=== PATIENT | female | born 1935 | race Caucasian/White ===

== ENCOUNTER → 2018-02-22 10:21 | Outpatient (CLI) | payer MEDICARE, BC, SELFPAY ==
[2018-02-22 12:15] LABS: Absolute Lymphocyte Count 1.41 X10^3/ul (0.83-4.51); Absolute Neutrophil Count 3.3 X10^3/uL (2.0-7.7); Basophil# 0.06 X10^3/uL; Eosinophil# 0.12 X10^3/uL; Eosinophils% 2.1 % (0-5); Hematocrit 46.4 % (37-47); Hemoglobin 15.7 g/dl (12.0-15.0); Lymphocyte # 1.41 X10^3/ul (4.0); Lymphocyte % 24.6 % (19-41); Mean Corp Hgb Conc 33.8 g/gl (32-36); Mean Corpuscular Hgb 34.4 pg (27.0-32.0); Mean Corpuscular Volume 101.5 fL (81-99); Mean Platelet Vol. 11.2 fl (6.2-12.0); Monocyte# 0.89 X10^3/uL; Monocyte% 15.5 % (0-10); Neutrophil # 3.26 X10^3/uL (2.7-7.7); Neutrophil % 56.8 % (47-70); Platelet Count 219 K/mm3 (150-450); RBC Distribution Width CV 13.3 % (11.6-14.6); RBC Distribution Width SD 48.8 fl (35.1-43.9); Red Blood Count 4.57 M/mm3 (4.2-5.4); White Blood Count 5.7 K/mm3 (4.4-11.0)
[2018-02-22 12:25] LABS: AST(SGOT) 46 U/L (15-37); Alanine Aminotransfer ALT/SGPT 64 U/L (13-56); Albumin, Serum 3.9 g/dL (3.2-5.0); Alkaline Phosphatase 52 U/L (45-117); Anion Gap 7 (5-15); BUN 16 mg/dL (7-18); BUN/Creat Ratio 15.8 RATIO (10-20); Calcium,Total 8.8 mg/dL (8.5-10.1); Chloride 104 mmol/L (98-107); Creatinine, Serum 1.01 mg/dL (0.55-1.02); EST Glomerular Filtration Rate 56 mL/min (>60); Est Glom Filt Rate - Afr Amer 68 mL/min (>60); Globulin 3.8 g/dL (2.2-4.2); Glucose 83 mg/dL (74-106); Protein, Total 7.7 g/dL (6.4-8.2); Sodium Level 138 mmol/L (136-145)
[2018-02-22 12:28] LABS: POSITIVE COUNT NO; POSITIVE DIFFERENTIAL NO; POSITIVE MORPHOLOGY NO
== END ==
PROVIDERS: Family Provider Family Medicine; PCP Family Medicine; Visit Provider Internal Medicine Rheumatology
DX: M06.4 Inflammatory polyarthropathy (principal); Z79.899 Other long term (current) drug therapy; M15.9 Polyosteoarthritis, unspecified; K21.0 Gastro-esophageal reflux disease with esophagitis; M89.9 Disorder of bone, unspecified; F32.9 Major depressive disorder, single episode, unspecified; E03.9 Hypothyroidism, unspecified; I10 Essential (primary) hypertension; E78.5 Hyperlipidemia, unspecified
CPT/HCPCS: 36415; 80053; 85025

== ENCOUNTER → 2018-03-03 07:38 | Outpatient (CLI) | payer MEDICARE, BC, SELFPAY ==
--- NOTE | 2018-03-03 07:42 | US_ITS ---
STUDY: ABDOMINAL ULTRASOUND - RIGHT UPPER QUADRANT REASON FOR VISIT: Female, 82 years old. Elevated liver enzymes. TECHNIQUE: Ultrasound evaluation of the right upper quadrant was performed with real-time and static gilmore-scale imaging. TECHNICAL QUALITY: Adequate. COMPARISON: None. FINDINGS: Liver: The liver measures 15.4 cm. There is increased echogenicity consistent with fatty infiltration. The bile ducts are within normal limits. There is hepatic color flow. The direction of portal flow is hepatopetal. There is no demonstrated mass lesion. Gallbladder: The patient is status post cholecystectomy. Common Bile Duct (C.B.D.): The common bile duct measures 4.5 mm. Pancreas: Normal size of the head, body and tail of the pancreas. There is normal echogenicity of the pancreas. There is no demonstrated pancreatic mass or cyst. Right Kidney: Normal size of the right kidney. The right kidney measures 9.9 cm x 3.7 cm x 4.2 cm. Normal renal cortex. The right cortex measures 1.2 cm. There is no demonstrated renal mass or cyst. There is no right hydronephrosis. US/Liver IMPRESSION: Mild degree of fatty infiltration of the liver. Electronically Signed: Viktor Pelletier MD at 15:51 EDT Tel [phone], Service support ,
== END ==
PROVIDERS: Family Provider Family Medicine; PCP Family Medicine; Visit Provider Internal Medicine Rheumatology
DX: R94.5 Abnormal results of liver function studies (principal)
CPT/HCPCS: 76705

== ENCOUNTER → 2018-03-22 09:54 | Outpatient (CLI) | payer MEDICARE, BC, SELFPAY ==
[2018-03-22 12:14] LABS: Absolute Lymphocyte Count 2.03 X10^3/ul (0.83-4.51); Absolute Neutrophil Count 5.6 X10^3/uL (2.0-7.7); Basophil# 0.03 X10^3/uL; Basophil% 0.3 % (0-1); Eosinophil# 0.32 X10^3/uL; Eosinophils% 3.4 % (0-5); Hematocrit 47.6 % (37-47); Lymphocyte # 2.03 X10^3/ul (4.0); Lymphocyte % 21.8 % (19-41); Mean Corp Hgb Conc 33.6 g/gl (32-36); Mean Corpuscular Volume 101.3 fL (81-99); Mean Platelet Vol. 11.1 fl (6.2-12.0); Monocyte% 13.9 % (0-10); Neutrophil # 5.63 X10^3/uL (2.7-7.7); Neutrophil % 60.4 % (47-70); Platelet Count 273 K/mm3 (150-450); RBC Distribution Width CV 12.4 % (11.6-14.6); White Blood Count 9.3 K/mm3 (4.4-11.0)
[2018-03-22 12:24] LABS: POSITIVE COUNT NO; POSITIVE DIFFERENTIAL NO; POSITIVE MORPHOLOGY NO
[2018-03-22 12:49] LABS: ALB/GLOB Ratio 0.9 RATIO (0.9-2.4); AST(SGOT) 32 U/L (15-37); Alanine Aminotransfer ALT/SGPT 44 U/L (13-56); Albumin, Serum 3.7 g/dL (3.2-5.0); Alkaline Phosphatase 49 U/L (45-117); Anion Gap 14 (5-15); BUN 22 mg/dL (7-18); BUN/Creat Ratio 21.6 RATIO (10-20); Calcium,Total 8.8 mg/dL (8.5-10.1); Chloride 103 mmol/L (98-107); Creatinine, Serum 1.02 mg/dL (0.55-1.02); EST Glomerular Filtration Rate 55 mL/min (>60); Est Glom Filt Rate - Afr Amer 67 mL/min (>60); Glucose 113 mg/dL (74-106); Potassium 3.9 mmol/L (3.5-5.1); Protein, Total 7.7 g/dL (6.4-8.2); Sodium Level 139 mmol/L (136-145)
== END ==
PROVIDERS: Family Provider Family Medicine; PCP Family Medicine; Visit Provider Internal Medicine Rheumatology
DX: M06.4 Inflammatory polyarthropathy (principal); M19.049 Primary osteoarthritis, unspecified hand
CPT/HCPCS: 36415; 80053; 85025

== ENCOUNTER → 2018-05-17 10:49 | Outpatient (CLI) | payer MEDICARE, BC, SELFPAY ==
[2018-05-17 12:24] LABS: Absolute Lymphocyte Count 1.52 X10^3/ul (0.83-4.51); Absolute Neutrophil Count 3.6 X10^3/uL (2.0-7.7); Basophil# 0.06 X10^3/uL; Basophil% 0.9 % (0-1); Eosinophils% 3.1 % (0-5); Hematocrit 46.5 % (37-47); Hemoglobin 15.3 g/dl (12.0-15.0); Lymphocyte # 1.52 X10^3/ul (4.0); Lymphocyte % 23.9 % (19-41); Mean Corp Hgb Conc 32.9 g/gl (32-36); Mean Corpuscular Hgb 33.3 pg (27.0-32.0); Mean Corpuscular Volume 101.1 fL (81-99); Mean Platelet Vol. 11.3 fl (6.2-12.0); Monocyte# 0.96 X10^3/uL; Monocyte% 15.1 % (0-10); Neutrophil # 3.61 X10^3/uL (2.7-7.7); Neutrophil % 56.8 % (47-70); Platelet Count 222 K/mm3 (150-450); RBC Distribution Width CV 12.8 % (11.6-14.6); RBC Distribution Width SD 46.4 fl (35.1-43.9); White Blood Count 6.4 K/mm3 (4.4-11.0)
[2018-05-17 12:26] LABS: POSITIVE COUNT NO; POSITIVE DIFFERENTIAL NO; POSITIVE MORPHOLOGY NO
[2018-05-17 12:44] LABS: AST(SGOT) 32 U/L (15-37); Alanine Aminotransfer ALT/SGPT 45 U/L (13-56); Albumin, Serum 3.6 g/dL (3.2-5.0); Alkaline Phosphatase 51 U/L (45-117); Anion Gap 9 (5-15); BUN 16 mg/dL (7-18); Calcium,Total 8.9 mg/dL (8.5-10.1); Chloride 106 mmol/L (98-107); Creatinine, Serum 0.89 mg/dL (0.55-1.02); EST Glomerular Filtration Rate 65 mL/min (>60); Est Glom Filt Rate - Afr Amer 78 mL/min (>60); Globulin 3.7 g/dL (2.2-4.2); Glucose 95 mg/dL (74-106); Potassium 3.9 mmol/L (3.5-5.1); Protein, Total 7.3 g/dL (6.4-8.2); Sodium Level 142 mmol/L (136-145)
== END ==
PROVIDERS: Family Provider Family Medicine; PCP Family Medicine; Visit Provider Internal Medicine Rheumatology
DX: M06.4 Inflammatory polyarthropathy (principal); Z79.899 Other long term (current) drug therapy; M15.9 Polyosteoarthritis, unspecified; K21.0 Gastro-esophageal reflux disease with esophagitis; K76.0 Fatty (change of) liver, not elsewhere classified; M89.9 Disorder of bone, unspecified; F32.89 Other specified depressive episodes; E03.9 Hypothyroidism, unspecified; I10 Essential (primary) hypertension; E78.5 Hyperlipidemia, unspecified
CPT/HCPCS: 36415; 80053; 85025

== ENCOUNTER → 2019-02-22 15:46 | Outpatient (CLI) | payer MEDICARE, BC, SELFPAY | PROVIDERS: Family Provider Family Medicine; PCP Family Medicine; Referring Provider Otolaryngology Otolaryngology/Facial Plastic Surgery; Visit Provider Otolaryngology Otolaryngology/Facial Plastic Surgery | DX: J02.9 Acute pharyngitis, unspecified (principal) | CPT/HCPCS: 87070 ==

== ENCOUNTER → 2019-05-18 11:14 | Outpatient (CLI) | payer MEDICARE, BC, SELFPAY ==
[2019-05-18 14:14] LABS: Absolute Lymphocyte Count 1.65 X10^3/uL (0.83-4.51); Absolute Neutrophil Count 3.9 X10^3/uL (2.0-7.7); Basophil% 1.5 % (0-1); Eosinophil# 0.14 X10^3/uL; Eosinophils% 2.1 % (0-5); Hemoglobin 15.5 g/dL (12.0-15.0); Lymphocyte # 1.65 X10^3/ul (4.0); Lymphocyte % 24.2 % (19-41); Mean Corp Hgb Conc 33.7 g/dL (32-36); Mean Corpuscular Hgb 33.6 pg (27.0-32.0); Mean Corpuscular Volume 99.8 fL (81-99); Mean Platelet Vol. 10.7 fl (6.2-12.0); Monocyte# 1.05 X10^3/uL; Monocyte% 15.4 % (0-10); NRBC Flagged by Analyzer 0 % (0-5); Neutrophil # 3.86 X10^3/uL (2.7-7.7); Neutrophil % 56.7 % (47-70); Platelet Count 262 K/mm3 (150-450); RBC Distribution Width CV 12.5 % (11.6-14.6); RBC Distribution Width SD 45.7 fl (35.1-43.9); Red Blood Count 4.61 M/mm3 (4.2-5.4); White Blood Count 6.8 K/mm3 (4.4-11.0)
[2019-05-18 14:26] LABS: ALB/GLOB Ratio 1.1 RATIO (0.9-2.4); AST(SGOT) 27 U/L (15-37); Alanine Aminotransfer ALT/SGPT 45 U/L (13-56); Albumin, Serum 3.9 g/dL (3.2-5.0); Alkaline Phosphatase 62 U/L (45-117); Anion Gap 10 (5-15); BUN 15 mg/dL (7-18); BUN/Creat Ratio 17.5 RATIO (10-20); Calcium,Total 9.2 mg/dL (8.5-10.1); Chloride 103 mmol/L (98-107); Creatinine, Serum 0.86 mg/dL (0.55-1.02); EST Glomerular Filtration Rate 68 mL/min (>60); Est Glom Filt Rate - Afr Amer 82 mL/min (>60); Globulin 3.6 g/dL (2.2-4.2); Glucose 78 mg/dL (74-106); Potassium 3.8 mmol/L (3.5-5.1); Protein, Total 7.5 g/dL (6.4-8.2); Sodium Level 138 mmol/L (136-145)
== END ==
PROVIDERS: Family Provider Family Medicine; PCP Family Medicine; Referring Provider Internal Medicine Rheumatology; Visit Provider Internal Medicine Rheumatology
DX: M06.4 Inflammatory polyarthropathy (principal); Z79.899 Other long term (current) drug therapy; M15.9 Polyosteoarthritis, unspecified; K21.0 Gastro-esophageal reflux disease with esophagitis
CPT/HCPCS: 36415; 80053; 85025

== ENCOUNTER → 2020-03-26 14:30 | Outpatient (CLI) | payer MEDICARE, BC, SELFPAY ==
[2020-03-26 17:51] LABS: Absolute Neutrophil Count 4.2 X10^3/uL (2.0-7.7); Basophil# 0.07 X10^3/uL; Basophil% 0.9 % (0-1); Eosinophil# 0.21 X10^3/uL; Eosinophils% 2.7 % (0-5); Hematocrit 47.1 % (37-47); Hemoglobin 15.3 g/dL (12.0-15.0); Lymphocyte % 28.6 % (19-41); Mean Corp Hgb Conc 32.5 g/dL (32-36); Mean Corpuscular Hgb 32.8 pg (27.0-32.0); Mean Corpuscular Volume 101.1 fL (81-99); Mean Platelet Vol. 12.3 fl (6.2-12.0); Monocyte# 0.98 X10^3/uL; Monocyte% 12.7 % (0-10); NRBC Flagged by Analyzer 0 % (0-5); Neutrophil # 4.22 X10^3/uL (2.7-7.7); Neutrophil % 54.8 % (47-70); Platelet Count 233 K/mm3 (150-450); RBC Distribution Width CV 11.9 % (11.6-14.6); RBC Distribution Width SD 44.3 fl (35.1-43.9); Red Blood Count 4.66 M/mm3 (4.2-5.4); White Blood Count 7.7 K/mm3 (4.4-11.0)
[2020-03-26 18:27] LABS: AST(SGOT) 37 U/L (15-37); Alanine Aminotransfer ALT/SGPT 48 U/L (13-56); Albumin, Serum 3.8 g/dL (3.2-5.0); Alkaline Phosphatase 54 U/L (45-117); Anion Gap 7 (5-15); BUN 17 mg/dL (7-18); BUN/Creat Ratio 18.8 RATIO (10-20); Calcium,Total 9.3 mg/dL (8.5-10.1); Chloride 103 mmol/L (98-107); Creatinine, Serum 0.91 mg/dL (0.55-1.02); EST Glomerular Filtration Rate 63 mL/min (>60); Est Glom Filt Rate - Afr Amer 76 mL/min (>60); Globulin 3.8 g/dL (2.2-4.2); Glucose 92 mg/dL (74-106); Potassium 3.8 mmol/L (3.5-5.1); Protein, Total 7.6 g/dL (6.4-8.2); Sodium Level 138 mmol/L (136-145)
== END ==
PROVIDERS: PCP Family Medicine; Referring Provider Internal Medicine Rheumatology; Visit Provider Internal Medicine Rheumatology
DX: M06.4 Inflammatory polyarthropathy (principal); Z79.899 Other long term (current) drug therapy; M15.9 Polyosteoarthritis, unspecified; K21.0 Gastro-esophageal reflux disease with esophagitis; K76.0 Fatty (change of) liver, not elsewhere classified; G47.33 Obstructive sleep apnea (adult) (pediatric); M89.9 Disorder of bone, unspecified; F32.89 Other specified depressive episodes; E03.9 Hypothyroidism, unspecified; I10 Essential (primary) hypertension
CPT/HCPCS: 36415; 80053; 85025

== ENCOUNTER → 2020-06-04 12:10 | Outpatient (CLI) | payer MEDICARE, BC, SELFPAY ==
--- NOTE | 2020-06-04 12:25 | US_ITS ---
STUDY: THYROID ULTRASOUND REASON FOR EXAM: Female, 84 years old. NODULES TECHNIQUE: Ultrasound evaluation of the thyroid was performed with real-time and static gilmore-scale imaging. COMPARISON: Comparison is made with prior examination dated 03/11/2015. FINDINGS: RIGHT LOBE: The right lobe of the thyroid gland measures 3.2 cm x 1.5 cm x 1.1 cm. There is a homogeneous echotexture. There are no demonstrated solid, cystic or complex lesions. LEFT LOBE: The left lobe of the thyroid gland measures 4.2 cm x 1.3 cm x 1.2 cm. There is a homogeneous echotexture. There is a 1.3 cm x 0.8 cm x 0.7 cm solid nodule in the lower aspect of the left thyroid lobe. This has increased slightly in size as compared to prior study. There is also evidence of a calcified nodule measuring 7 mm x 6 mm x 3 mm in the lower aspect. This is unchanged. ISTHMUS: The isthmus measures 2.0 mm. The regional lymph nodes are normal. US/Thyroid IMPRESSION: Slight increase in size of the hypoechoic solid nodule in the inferior aspect of the left lobe of the thyroid presently measuring 1.3 cm x 0.8 cm x 0.7 cm. Electronically Signed: Viktor Pelletier, at 14:47 EDT , Service support ,
[2020-06-04 12:56] LABS: Free T3 2.6 pg/mL (2.18-3.98); T4 Free Direct 1.51 ng/dL (0.76-1.46); Thyroid Stim Hormone (TSH) 2.26 uIU/mL (0.358-3.74)
== END ==
PROVIDERS: PCP Family Medicine; Referring Provider Otolaryngology Otolaryngology/Facial Plastic Surgery; Visit Provider Otolaryngology Otolaryngology/Facial Plastic Surgery
DX: E04.1 Nontoxic single thyroid nodule (principal)
CPT/HCPCS: 36415; 76536; 84439; 84443; 84481

== ENCOUNTER → 2020-06-18 10:20 | Outpatient (CLI) | payer MEDICARE, BC, SELFPAY ==
[2020-06-18 12:14] LABS: Absolute Lymphocyte Count 1.92 X10^3/uL (0.83-4.51); Absolute Neutrophil Count 3.1 X10^3/uL (2.0-7.7); Basophil# 0.07 X10^3/uL; Basophil% 1.2 % (0-1); Eosinophil# 0.05 X10^3/uL; Eosinophils% 0.8 % (0-5); Hematocrit 45.6 % (37-47); Hemoglobin 15.3 g/dL (12.0-15.0); Lymphocyte # 1.92 X10^3/ul (4.0); Lymphocyte % 32.5 % (19-41); Mean Corp Hgb Conc 33.6 g/dL (32-36); Mean Corpuscular Hgb 34.2 pg (27.0-32.0); Mean Corpuscular Volume 101.8 fL (81-99); Monocyte# 0.76 X10^3/uL; Monocyte% 12.9 % (0-10); NRBC Flagged by Analyzer 0 % (0-5); Neutrophil # 3.07 X10^3/uL (2.7-7.7); Neutrophil % 52.1 % (47-70); Platelet Count 198 K/mm3 (150-450); RBC Distribution Width CV 12.9 % (11.6-14.6); RBC Distribution Width SD 48.1 fl (35.1-43.9); Red Blood Count 4.48 M/mm3 (4.2-5.4); White Blood Count 5.9 K/mm3 (4.4-11.0)
[2020-06-18 13:03] LABS: ALB/GLOB Ratio 1.1 RATIO (0.9-2.4); AST(SGOT) 31 U/L (15-37); Alanine Aminotransfer ALT/SGPT 39 U/L (13-56); Albumin, Serum 3.8 g/dL (3.2-5.0); Alkaline Phosphatase 57 U/L (45-117); Anion Gap 8 (5-15); BUN 13 mg/dL (7-18); BUN/Creat Ratio 15.2 RATIO (10-20); Calcium,Total 9.2 mg/dL (8.5-10.1); Chloride 106 mmol/L (98-107); Creatinine, Serum 0.86 mg/dL (0.55-1.02); EST Glomerular Filtration Rate 67 mL/min (>60); Est Glom Filt Rate - Afr Amer 82 mL/min (>60); Globulin 3.5 g/dL (2.2-4.2); Glucose 108 mg/dL (74-106); Protein, Total 7.3 g/dL (6.4-8.2); Sodium Level 138 mmol/L (136-145)
== END ==
PROVIDERS: PCP Family Medicine; Referring Provider Internal Medicine Rheumatology; Visit Provider Internal Medicine Rheumatology
DX: M06.4 Inflammatory polyarthropathy (principal); Z79.899 Other long term (current) drug therapy; K21.0 Gastro-esophageal reflux disease with esophagitis; K76.0 Fatty (change of) liver, not elsewhere classified; G47.33 Obstructive sleep apnea (adult) (pediatric); M89.9 Disorder of bone, unspecified; F32.9 Major depressive disorder, single episode, unspecified; E03.9 Hypothyroidism, unspecified; I10 Essential (primary) hypertension; E78.5 Hyperlipidemia, unspecified
CPT/HCPCS: 36415; 80053; 85025

== ENCOUNTER → 2020-09-25 15:06 | Outpatient (CLI) | payer MEDICARE, BC, SELFPAY ==
[2020-09-25 18:12] LABS: Absolute Lymphocyte Count 2.29 X10^3/uL (0.83-4.51); Absolute Neutrophil Count 3.8 X10^3/uL (2.0-7.7); Basophil# 0.09 X10^3/uL; Basophil% 1.2 % (0-1); Eosinophil# 0.24 X10^3/uL; Eosinophils% 3.2 % (0-5); Hematocrit 49.4 % (37-47); Hemoglobin 16.4 g/dL (12.0-15.0); Lymphocyte # 2.29 X10^3/ul (4.0); Lymphocyte % 30.7 % (19-41); Mean Corp Hgb Conc 33.2 g/dL (32-36); Mean Corpuscular Hgb 34.3 pg (27.0-32.0); Mean Corpuscular Volume 103.3 fL (81-99); Mean Platelet Vol. 11.6 fl (6.2-12.0); Monocyte# 1.03 X10^3/uL; Monocyte% 13.8 % (0-10); NRBC Flagged by Analyzer 0 % (0-5); Neutrophil # 3.79 X10^3/uL (2.7-7.7); Platelet Count 237 K/mm3 (150-450); RBC Distribution Width CV 12.2 % (11.6-14.6); RBC Distribution Width SD 46.4 fl (35.1-43.9); Red Blood Count 4.78 M/mm3 (4.2-5.4); White Blood Count 7.5 K/mm3 (4.4-11.0)
[2020-09-25 18:51] LABS: ALB/GLOB Ratio 1.1 RATIO (0.9-2.4); AST(SGOT) 29 U/L (15-37); Alanine Aminotransfer ALT/SGPT 47 U/L (13-56); Albumin, Serum 4.1 g/dL (3.2-5.0); Alkaline Phosphatase 67 U/L (45-117); Anion Gap 6 (5-15); BUN 16 mg/dL (7-18); BUN/Creat Ratio 18.2 RATIO (10-20); Chloride 105 mmol/L (98-107); Creatinine, Serum 0.88 mg/dL (0.55-1.02); EST Glomerular Filtration Rate 65 mL/min (>60); Est Glom Filt Rate - Afr Amer 79 mL/min (>60); Globulin 3.8 g/dL (2.2-4.2); Glucose 77 mg/dL (74-106); Protein, Total 7.9 g/dL (6.4-8.2); Sodium Level 136 mmol/L (136-145)
== END ==
PROVIDERS: PCP Family Medicine; Referring Provider Internal Medicine Rheumatology; Visit Provider Internal Medicine Rheumatology
DX: M06.4 Inflammatory polyarthropathy (principal); Z79.899 Other long term (current) drug therapy; M15.9 Polyosteoarthritis, unspecified; K76.0 Fatty (change of) liver, not elsewhere classified; K21.00 Gastro-esophageal reflux disease with esophagitis, without bleeding; G47.33 Obstructive sleep apnea (adult) (pediatric); M89.9 Disorder of bone, unspecified; F32.9 Major depressive disorder, single episode, unspecified; E03.9 Hypothyroidism, unspecified; I10 Essential (primary) hypertension; E78.5 Hyperlipidemia, unspecified
CPT/HCPCS: 36415; 80053; 85025

== ENCOUNTER → 2021-02-18 10:30 | Outpatient (CLI) | payer MEDICARE, BC, SELFPAY ==
[2021-02-18 12:52] LABS: Absolute Neutrophil Count 4.1 X10^3/uL (2.0-7.7); Basophil# 0.07 X10^3/uL; Basophil% 1.1 % (0-1); Eosinophil# 0.19 X10^3/uL; Eosinophils% 2.9 % (0-5); Hematocrit 46.3 % (37-47); Hemoglobin 15.2 g/dL (12.0-15.0); Lymphocyte % 21.4 % (19-41); Mean Corp Hgb Conc 32.8 g/dL (32-36); Mean Corpuscular Hgb 34.4 pg (27.0-32.0); Mean Corpuscular Volume 104.8 fL (81-99); Mean Platelet Vol. 12.1 fl (6.2-12.0); Monocyte# 0.77 X10^3/uL; Monocyte% 11.8 % (0-10); NRBC Flagged by Analyzer 0 % (0-5); Neutrophil % 62.6 % (47-70); Platelet Count 220 K/mm3 (150-450); RBC Distribution Width CV 12.4 % (11.6-14.6); RBC Distribution Width SD 48.7 fl (35.1-43.9); Red Blood Count 4.42 M/mm3 (4.2-5.4); White Blood Count 6.5 K/mm3 (4.4-11.0)
[2021-02-18 13:11] LABS: ALB/GLOB Ratio 1.1 RATIO (0.9-2.4); AST(SGOT) 43 U/L (15-37); Alanine Aminotransfer ALT/SGPT 65 U/L (13-56); Albumin, Serum 3.8 g/dL (3.2-5.0); Alkaline Phosphatase 54 U/L (45-117); Anion Gap 8 (5-15); BUN 17 mg/dL (7-18); BUN/Creat Ratio 19.9 RATIO (10-20); Calcium,Total 9.2 mg/dL (8.5-10.1); Chloride 104 mmol/L (98-107); Creatinine, Serum 0.86 mg/dL (0.55-1.02); EST Glomerular Filtration Rate 67 mL/min (>60); Est Glom Filt Rate - Afr Amer 81 mL/min (>60); Globulin 3.5 g/dL (2.2-4.2); Glucose 91 mg/dL (74-106); Potassium 3.7 mmol/L (3.5-5.1); Protein, Total 7.3 g/dL (6.4-8.2); Sodium Level 140 mmol/L (136-145)
== END ==
PROVIDERS: PCP Family Medicine; Referring Provider Internal Medicine Rheumatology; Visit Provider Internal Medicine Rheumatology
DX: M06.4 Inflammatory polyarthropathy (principal); Z79.899 Other long term (current) drug therapy; K76.0 Fatty (change of) liver, not elsewhere classified; G47.33 Obstructive sleep apnea (adult) (pediatric); M89.9 Disorder of bone, unspecified; F32.9 Major depressive disorder, single episode, unspecified; E03.9 Hypothyroidism, unspecified; I10 Essential (primary) hypertension; E78.5 Hyperlipidemia, unspecified
CPT/HCPCS: 36415; 80053; 85025

== ENCOUNTER → 2021-04-07 11:47 | Outpatient (CLI) | payer MEDICARE, BC, SELFPAY ==
[2021-04-07 16:02] LABS: ALB/GLOB Ratio 1.2 RATIO (0.9-2.4); AST(SGOT) 28 U/L (15-37); Alanine Aminotransfer ALT/SGPT 35 U/L (13-56); Alkaline Phosphatase 51 U/L (45-117); Anion Gap 9 (5-15); BUN 16 mg/dL (7-18); BUN/Creat Ratio 20.2 RATIO (10-20); Calcium,Total 9.5 mg/dL (8.5-10.1); Chloride 101 mmol/L (98-107); Creatinine, Serum 0.79 mg/dL (0.55-1.02); EST Glomerular Filtration Rate 74 mL/min (>60); Est Glom Filt Rate - Afr Amer 89 mL/min (>60); Globulin 3.2 g/dL (2.2-4.2); Glucose 76 mg/dL (74-106); Potassium 4.3 mmol/L (3.5-5.1); Protein, Total 7.2 g/dL (6.4-8.2); Sodium Level 136 mmol/L (136-145)
== END ==
PROVIDERS: PCP Family Medicine; Referring Provider Internal Medicine Rheumatology; Visit Provider Internal Medicine Rheumatology
DX: M06.4 Inflammatory polyarthropathy (principal); Z79.899 Other long term (current) drug therapy; K21.00 Gastro-esophageal reflux disease with esophagitis, without bleeding; K76.0 Fatty (change of) liver, not elsewhere classified; G47.33 Obstructive sleep apnea (adult) (pediatric); M89.9 Disorder of bone, unspecified; F32.9 Major depressive disorder, single episode, unspecified; E03.9 Hypothyroidism, unspecified; I10 Essential (primary) hypertension; E78.5 Hyperlipidemia, unspecified
CPT/HCPCS: 36415; 80053

== ENCOUNTER → 2021-04-25 06:35 | Outpatient (CLI) | payer MEDICARE, BC, SELFPAY ==
[2021-04-16 11:42] VITALS: BMI 26.9
--- NOTE | 2021-04-25 06:38 | ECHOD_ITS ---
Reason For Study: ARRHYTHMIA Procedure This was a 2D Doppler, Color Flow transthoracic echocardiogram. Exam performed in department. Left Ventricle Normal LV size. Left ventricular systolic function is lower limits of normal. The estimated ejection fraction is 50 %. Stage 1 diastolic dysfunction. No regional wall motion abnormalities noted. Right Ventricle Normal RV size. Normal systolic function. Atria The left atrium is mildly enlarged. Normal right atrium. Mitral Valve Normal mitral valve. Tricuspid Valve Normal tricuspid valve. Mild (1+) tricuspid valve insufficiency. Pulmonary artery systolic pressure is 38 mmHg. Great Vessels Normal aortic root. The pulmonary artery is normal size. Normal inferior vena cava. Pericardium/Pleural No pericardial effusion. MMode/2D Measurements & Calculations LVIDd: 5.0 cm IVSd: 0.76 cm Ao root diam: 3.7 cm LVIDs: 3.5 cm LVPWd: 0.80 cm RVDd: 3.2 cm FS: 28.9 % LAV(MOD-bp): 63.3 ml LA dimension(2D): 3.9 cm LA A4 area: 22.4 cm2 LAV(MOD-bp) Indexed: 36.7 ml/m2 LAV(MOD-sp2): 41.0 ml LAV(MOD-sp4): 64.9 ml RA A4 area: 12.0 cm2 Time Measurements MV dec time: 0.26 sec Doppler Measurements & Calculations MV E max shankar: 73.8 cm/sec Lat Peak E' Shankar: 2.7 cm/sec Med Peak E' Shankar: 3.5 cm/sec MV A max shankar: 85.5 cm/sec E/E' lat: 27.2 E/E' med: 20.8 MV E/A: 0.86 Ao V2 max: 144.9 cm/sec LV V1 max: 98.0 cm/sec PA V2 max: 77.5 cm/sec Ao max P.4 mmHg LV V1 max P.8 mmHg TR max shankar: 294.0 cm/sec TR max P.6 mmHg ECHO/Echo Complete Interpretation Summary Normal LV size. Left ventricular systolic function is lower limits of normal. The estimated ejection fraction is 50 %. Stage 1 diastolic dysfunction. Pulmonary artery systolic pressure is 38 mmHg. Ordering Physician: Stephen Forrester Referring Physician: TESSY OTERO Performed By: Francisca Mason, JOVI, RVT
--- NOTE | 2021-04-25 10:47 | STRESSREP ---
Stress Test Report Exercise myocardial perfusion stress test. 85-year-old lady with a history of shortness of breath and SVT. Stress protocol: Resting EKG demonstrates normal sinus rhythm with a rate of 58 bpm occasional premature ventricular complexes are noted. Resting blood pressure is 122/84 mmHg. The patient was exercised according to the regular Marty protocol for total duration of 6 minutes the maximum heart rate was 131 bpm which was 95% of maximum predicted heart rate the maximum workload was 7 metabolic equivalents. At rest there were no ST or T wave changes noted to suggest ischemia and at peak exercise nonspecific ST changes were noted with did not meet the criteria for ischemia. Occasional premature ventricular complex was noted. No clinical angina was noted but the test was terminated due to fatigue. The patient did experience moderate shortness of breath with exertion. The peak blood pressure was 158/90 mmHg. Myocardial perfusion protocol. 11.5 mCi of technetium 99m sestamibi was injected at rest. The patient exercised according to the regular Marty protocol and at peak exercise 32.6 mCi of technetium 99m sestamibi was injected stress images were obtained stress and rest images were reconstructed and compared in the short axis vertical long and horizontal long axis. Gated images were also obtained. Perfusion SPECT analysis: Review of the stress images demonstrate a normal cardiac silhouette size. There is normal perfusion noted in the anterior wall inferior wall and septum. Small portion of the anterolateral wall demonstrates reduced perfusion on the stress images with improvement on the resting images demonstrating a mild amount of anterolateral ischemia. No previous infarct is noted. Gated SPECT analysis: The gated ejection fraction is noted to be 67%. Conclusion: Exercise myocardial perfusion stress test with mild anterolateral ischemia at a moderate workload. Preserved ejection fraction. No arrhythmias noted.
== END ==
PROVIDERS: PCP Family Medicine; Referring Provider Internal Medicine Cardiovascular Disease; Visit Provider Internal Medicine Cardiovascular Disease
DX: I47.1 Supraventricular tachycardia (principal); I10 Essential (primary) hypertension; R06.02 Shortness of breath
CPT/HCPCS: 78452; 93017; 93306; A9500; A4216

== ENCOUNTER → 2021-05-13 12:17 | Outpatient (CLI) | payer MEDICARE, BC, SELFPAY ==
[2021-04-16 11:42] VITALS: BMI 26.9
--- NOTE | 2021-05-13 12:21 | RAD_ITS ---
STUDY: X-RAY CHEST REASON FOR EXAM: Female, 85 years old. Dyspnea TECHNIQUE: PA and lateral views of the chest. COMPARISON: Comparison is made with prior study dated 10/20/2016. FINDINGS: The lungs are clear and expanded. There is no demonstrated pleural abnormality. Normal size heart. Normal mediastinum and delma. Normal visualized pulmonary arteries. There is atherosclerotic tortuosity of the aortic arch and descending thoracic aorta. There are diffuse degenerative changes of the visualized thoracic spine. Dextroscoliosis of the lumbar spine. Normal visualized ribs, clavicles, and shoulders. There is no demonstrated abnormality of the visualized soft tissue structures of the upper abdomen. RAD/Chest PA and Lateral IMPRESSION: Stable examination. Electronically Signed: Viktor Pelletier MD at 22:46 EDT , Service support ,
[2021-05-13 13:18] LABS: Absolute Neutrophil Count 3.3 X10^3/uL (2.0-7.7); Basophil# 0.06 X10^3/uL; Basophil% 0.9 % (0-1); Eosinophil# 0.23 X10^3/uL; Eosinophils% 3.6 % (0-5); Hematocrit 47.6 % (37-47); Hemoglobin 16.1 g/dL (12.0-15.0); Lymphocyte % 32.5 % (19-41); Mean Corp Hgb Conc 33.8 g/dL (32-36); Mean Corpuscular Hgb 33.6 pg (27.0-32.0); Mean Corpuscular Volume 99.4 fL (81-99); Mean Platelet Vol. 11.6 fl (6.2-12.0); Monocyte# 0.78 X10^3/uL; Monocyte% 12.1 % (0-10); NRBC Flagged by Analyzer 0 % (0-5); Neutrophil # 3.29 X10^3/uL (2.7-7.7); Neutrophil % 50.9 % (47-70); Platelet Count 196 K/mm3 (150-450); RBC Distribution Width CV 11.7 % (11.6-14.6); RBC Distribution Width SD 42.5 fl (35.1-43.9); Red Blood Count 4.79 M/mm3 (4.2-5.4); White Blood Count 6.5 K/mm3 (4.4-11.0)
[2021-05-13 13:40] LABS: Anion Gap 6 (5-15); BUN 17 mg/dL (7-18); BUN/Creat Ratio 18.6 RATIO (10-20); Calcium,Total 9.2 mg/dL (8.5-10.1); Chloride 104 mmol/L (98-107); Creatinine, Serum 0.91 mg/dL (0.55-1.02); EST Glomerular Filtration Rate 62 mL/min (>60); Est Glom Filt Rate - Afr Amer 76 mL/min (>60); Glucose 84 mg/dL (74-106); Potassium 4.1 mmol/L (3.5-5.1); Sodium Level 137 mmol/L (136-145)
== END ==
PROVIDERS: PCP Family Medicine; Referring Provider Internal Medicine Cardiovascular Disease; Visit Provider Internal Medicine Cardiovascular Disease
DX: R94.39 Abnormal result of other cardiovascular function study (principal); I47.1 Supraventricular tachycardia; I10 Essential (primary) hypertension; E03.9 Hypothyroidism, unspecified; E78.5 Hyperlipidemia, unspecified
CPT/HCPCS: 36415; 71046; 80048; 85025

== ENCOUNTER 2021-05-19 07:42 | Day surgery (SDC) | payer MEDICARE, BC, SELFPAY ==
[2021-04-16 11:42] VITALS: BMI 26.9
[2021-05-16 08:34] VITALS: BMI 26.9
--- NOTE | 2021-05-19 09:43 | CL.D_ITS ---
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 The risks and benefits of the procedure as well as a full d escription of our services here and current unavailability of surgical backup were fully explained to the patient and/or their significant other prior to the catheterization. The Timeout was completed, verifying the correct patient and procedure. The patient's procedural site was prepped and draped in the usual fashion. Local anesthetic was given subcutaneously to right radial region with Lidocaine 2% by dr bright. Using a modified Seldinger technique, arterial access was obtained via the right ra dial artery, a 6Fr sheath was inserted. Left Coronary Artery selective angiography was performed in multiple views using a 5 Fr. 4.0 Lucas catheter. Right Coronary Artery selective angiography was then performed in multiple views using a 5 Fr. 4.0 Lucas catheter. Left Ventriculography was performed in KEMP projection using a 5 Fr. Pigtail catheter. 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 CIRCUMFLEX ARTERY: Mild luminal irregularities RIGHT CORONARY ARTERY: PROX RCA: Moderate luminal irregularities up to 50% COMPLICATIONS No Complications PROCEDURE MEDICATIONS Versed 1 mg IV Fentanyl 25 mcg IV Fentanyl 25 mcg IV Oxygen: 2 L/min via nasal cannula Heparin given IA 05/19/2021 09:20:07 SUMMARY OF HEMODYNAMIC DATA Time AIR REST ECG 08:07:38 AO 112/62 (81) SA 09:25:11 LV 132/11, 17 09:30:31 LV 118/7, 9 09:30:58 LV 129/4, 17 09:31:35 LV 77/9, 12 09:31:42 LV 99/9, 9 09:32:03 LVp 125/3, 16 09:32:19 AOp 127/63 (88) 09:32:24 09:42:06 Signed By Stephen Forrester MD On 05/19/2021 9:42:39 AM Stephen Forrester MD
== END 2021-05-19 12:00 | disposition home or self-care (01) ==
LOC: CLSP 07:44
PROVIDERS: PCP Family Medicine; Referring Provider Internal Medicine Cardiovascular Disease; Visit Provider Internal Medicine Cardiovascular Disease
DX: I25.10 Atherosclerotic heart disease of native coronary artery without angina pectoris (principal); I47.1 Supraventricular tachycardia; R06.02 Shortness of breath; E03.9 Hypothyroidism, unspecified; I10 Essential (primary) hypertension; E78.5 Hyperlipidemia, unspecified; Z82.49 Family history of ischemic heart disease and other diseases of the circulatory system
CPT/HCPCS: 93458; 99152; 99153; J7040; C1769; C1894; Q9967

== ENCOUNTER → 2021-06-10 11:56 | Outpatient (CLI) | payer MEDICARE, BC, SELFPAY ==
[2021-05-16 08:34] VITALS: BMI 26.9
--- NOTE | 2021-06-10 11:57 | US_ITS ---
STUDY: THYROID ULTRASOUND REASON FOR EXAM: Female, 85 years old. THYROID NODULES TECHNIQUE: Ultrasound evaluation of the thyroid was performed with real-time and static gilmore-scale imaging. COMPARISON: 03/09/2014, 09/13/2020 FINDINGS: RIGHT LOBE: The right lobe of the thyroid gland measures 3.8 x 1.5 x 1.6 cm. There is a mildly heterogeneous echotexture. There are no demonstrated solid or complex lesions. 3 mm mid lobe cyst. 3 mm inferior lobe cyst LEFT LOBE: The left lobe of the thyroid gland measures 4.1 x 1.2 x 1.2 cm. There is a mildly heterogeneous echotexture. 1.2 x 1 x 0.8 cm inferior lobe mixed cystic and solid, isoechoic lesion with smooth margins and tari nodular vascularity, not significant changed compared to 06/04/2020 or 03/09/2014. 6 mm mid lobe cyst with calcification ISTHMUS: The isthmus measures 1.6 millimeters. US/Thyroid IMPRESSION: TI-RADS 2 lesion measuring up 1.2 cm in the left thyroid is not significantly changed compared to 03/09/2014 and does not require further imaging follow-up. Electronically Signed: Colby Rocha MD at 3:23 EDT Tel , Service support ,
== END ==
PROVIDERS: PCP Family Medicine; Referring Provider Otolaryngology Otolaryngology/Facial Plastic Surgery; Visit Provider Otolaryngology Otolaryngology/Facial Plastic Surgery
DX: R22.1 Localized swelling, mass and lump, neck (principal)
CPT/HCPCS: 76536

== ENCOUNTER → 2021-07-03 08:28 | Outpatient (CLI) | payer MEDICARE, BC, SELFPAY ==
[2021-07-03 09:42] LABS: AST(SGOT) 31 U/L (15-37); Alanine Aminotransfer ALT/SGPT 48 U/L (13-56); Albumin, Serum 3.5 g/dL (3.2-5.0); Alkaline Phosphatase 54 U/L (45-117); Bilirubin, Direct 0.15 mg/dL (0.00-0.30); Cholesterol 174 mg/dL (200); Globulin 4.3 g/dL (2.2-4.2); High Density Lipoprotein 72 mg/dL; Protein, Total 7.8 g/dL (6.4-8.2); Triglycerides 132 mg/dL; Very Low Density Lipoprotein 26 mg/dL (5-40)
== END ==
PROVIDERS: PCP Family Medicine; Referring Provider Internal Medicine Cardiovascular Disease; Visit Provider Internal Medicine Cardiovascular Disease
DX: E78.00 Pure hypercholesterolemia, unspecified (principal)
CPT/HCPCS: 36415; 80061; 80076

== ENCOUNTER → 2022-03-16 | Outpatient (CLI) | payer MEDICARE, BC, SELFPAY ==
[2022-03-16 17:44] LABS: Absolute Lymphocyte Count 2.07 X10^3/uL (0.83-4.51); Absolute Neutrophil Count 4.2 X10^3/uL (2.0-7.7); Basophil# 0.07 X10^3/uL; Basophil% 0.9 % (0-1); Eosinophil# 0.23 X10^3/uL; Hematocrit 44.1 % (37-47); Lymphocyte # 2.07 X10^3/ul (0.83-4.51); Lymphocyte % 27.3 % (19-41); Mean Platelet Vol. 10.8 fl (6.2-12.0); Monocyte# 0.96 X10^3/uL; Monocyte% 12.7 % (0-10); NRBC Flagged by Analyzer 0 % (0-5); Neutrophil # 4.23 X10^3/uL (2.7-7.7); Platelet Count 204 K/mm3 (150-450); RBC Distribution Width CV 11.9 % (11.6-14.6); RBC Distribution Width SD 43.7 fl (35.1-43.9); Red Blood Count 4.41 M/mm3 (4.2-5.4); White Blood Count 7.6 K/mm3 (4.4-11.0)
[2022-03-16 18:10] LABS: ALB/GLOB Ratio 1.1 RATIO (0.9-2.4); AST(SGOT) 30 U/L (15-37); Alanine Aminotransfer ALT/SGPT 40 U/L (13-56); Albumin, Serum 3.9 g/dL (3.2-5.0); Alkaline Phosphatase 51 U/L (45-117); Anion Gap 8 (5-15); BUN 15 mg/dL (7-18); BUN/Creat Ratio 18.6 RATIO (10-20); Calcium,Total 9.3 mg/dL (8.5-10.1); Chloride 106 mmol/L (98-107); Creatinine, Serum 0.81 mg/dL (0.55-1.02); EST Glomerular Filtration Rate 72 mL/min (>60); Est Glom Filt Rate - Afr Amer 87 mL/min (>60); Globulin 3.4 g/dL (2.2-4.2); Glucose 91 mg/dL (74-106); Protein, Total 7.3 g/dL (6.4-8.2); Sodium Level 137 mmol/L (136-145)
== END | disposition home or self-care (01) ==
LOC: MTLAB 15:16
PROVIDERS: PCP Family Medicine; Referring Provider Internal Medicine Rheumatology; Visit Provider Internal Medicine Rheumatology
DX: M06.4 Inflammatory polyarthropathy (principal); Z79.899 Other long term (current) drug therapy; M15.9 Polyosteoarthritis, unspecified; K21.00 Gastro-esophageal reflux disease with esophagitis, without bleeding; K76.0 Fatty (change of) liver, not elsewhere classified; G47.33 Obstructive sleep apnea (adult) (pediatric); M89.9 Disorder of bone, unspecified; F32.9 Major depressive disorder, single episode, unspecified; E03.9 Hypothyroidism, unspecified; I10 Essential (primary) hypertension; E78.5 Hyperlipidemia, unspecified
CPT/HCPCS: 36415; 80053; 85025

== ENCOUNTER → 2022-09-14 | Outpatient (CLI) | payer MEDICARE, BC, SELFPAY ==
[2022-09-14 15:01] LABS: Absolute Lymphocyte Count 1.74 X10^3/uL (0.83-4.51); Absolute Neutrophil Count 4.1 X10^3/uL (2.0-7.7); Basophil# 0.07 X10^3/uL; Eosinophil# 0.19 X10^3/uL; Eosinophils% 2.7 % (0-5); Hematocrit 44.9 % (37-47); Hemoglobin 15.1 g/dL (12.0-15.0); Lymphocyte # 1.74 X10^3/ul (0.83-4.51); Mean Corp Hgb Conc 33.6 g/dL (32-36); Mean Corpuscular Hgb 33.4 pg (27.0-32.0); Mean Corpuscular Volume 99.3 fL (81-99); Mean Platelet Vol. 11.2 fl (6.2-12.0); Monocyte# 0.83 X10^3/uL; Monocyte% 11.9 % (0-10); NRBC Flagged by Analyzer 0 % (0-5); Neutrophil # 4.13 X10^3/uL (2.7-7.7); Neutrophil % 59.3 % (47-70); Platelet Count 206 K/mm3 (150-450); RBC Distribution Width CV 12.2 % (11.6-14.6); RBC Distribution Width SD 45.2 fl (35.1-43.9); Red Blood Count 4.52 M/mm3 (4.2-5.4)
[2022-09-14 15:28] LABS: ALB/GLOB Ratio 1.1 RATIO (0.9-2.4); AST(SGOT) 28 U/L (15-37); Alanine Aminotransfer ALT/SGPT 38 U/L (13-56); Albumin, Serum 3.9 g/dL (3.2-5.0); Alkaline Phosphatase 54 U/L (45-117); Anion Gap 7 (5-15); BUN 23 mg/dL (7-18); BUN/Creat Ratio 29.4 RATIO (10-20); Calcium,Total 9.1 mg/dL (8.5-10.1); Chloride 104 mmol/L (98-107); Creatinine, Serum 0.78 mg/dL (0.55-1.02); EST Glomerular Filtration Rate 74 mL/min (>60); Est Glom Filt Rate - Afr Amer 90 mL/min (>60); Globulin 3.6 g/dL (2.2-4.2); Glucose 94 mg/dL (74-106); Potassium 3.9 mmol/L (3.5-5.1); Protein, Total 7.5 g/dL (6.4-8.2); Sodium Level 135 mmol/L (136-145)
== END | disposition home or self-care (01) ==
PROVIDERS: PCP Family Medicine; Visit Provider Internal Medicine Rheumatology
DX: M06.4 Inflammatory polyarthropathy (principal); Z79.899 Other long term (current) drug therapy; K21.00 Gastro-esophageal reflux disease with esophagitis, without bleeding; K76.0 Fatty (change of) liver, not elsewhere classified; G47.33 Obstructive sleep apnea (adult) (pediatric); M89.9 Disorder of bone, unspecified; F32.89 Other specified depressive episodes; I10 Essential (primary) hypertension; E78.5 Hyperlipidemia, unspecified
CPT/HCPCS: 36415; 80053; 85025

== ENCOUNTER → 2023-03-09 | Outpatient (CLI) | payer MEDICARE, BC, SELFPAY ==
[2023-03-09 12:30] LABS: Absolute Lymphocyte Count 1.99 X10^3/uL (0.83-4.51); Basophil# 0.09 X10^3/uL; Basophil% 1.1 % (0-1); Eosinophil# 0.21 X10^3/uL; Eosinophils% 2.6 % (0-5); Hematocrit 49.4 % (37-47); Hemoglobin 16.4 g/dL (12.0-15.0); Lymphocyte # 1.99 X10^3/ul (0.83-4.51); Lymphocyte % 24.3 % (19-41); Mean Corp Hgb Conc 33.2 g/dL (32-36); Mean Corpuscular Hgb 33.6 pg (27.0-32.0); Mean Corpuscular Volume 101.2 fL (81-99); Mean Platelet Vol. 11.3 fl (6.2-12.0); Monocyte# 0.83 X10^3/uL; Monocyte% 10.1 % (0-10); NRBC Flagged by Analyzer 0 % (0-5); Neutrophil # 5.03 X10^3/uL (2.7-7.7); Neutrophil % 61.5 % (47-70); Platelet Count 245 K/mm3 (150-450); RBC Distribution Width CV 12.2 % (11.6-14.6); RBC Distribution Width SD 45.8 fl (35.1-43.9); Red Blood Count 4.88 M/mm3 (4.2-5.4); White Blood Count 8.2 K/mm3 (4.4-11.0)
[2023-03-09 13:08] LABS: ALB/GLOB Ratio 1.1 RATIO (0.9-2.4); AST(SGOT) 32 U/L (15-37); Alanine Aminotransfer ALT/SGPT 43 U/L (13-56); Albumin, Serum 3.9 g/dL (3.2-5.0); Alkaline Phosphatase 56 U/L (45-117); Anion Gap 10 (5-15); BUN 15 mg/dL (7-18); BUN/Creat Ratio 15.5 RATIO (10-20); Calcium,Total 9.2 mg/dL (8.5-10.1); Chloride 104 mmol/L (98-107); Creatinine, Serum 0.97 mg/dL (0.55-1.02); EST Glomerular Filtration Rate 58 mL/min (>60); Est Glom Filt Rate - Afr Amer 70 mL/min (>60); Globulin 3.7 g/dL (2.2-4.2); Glucose 100 mg/dL (74-106); Potassium 3.8 mmol/L (3.5-5.1); Protein, Total 7.6 g/dL (6.4-8.2); Sodium Level 137 mmol/L (136-145)
== END | disposition home or self-care (01) ==
LOC: MTLAB 10:24
PROVIDERS: PCP Family Medicine; Referring Provider Internal Medicine Rheumatology; Visit Provider Internal Medicine Rheumatology
DX: M06.4 Inflammatory polyarthropathy (principal); Z79.899 Other long term (current) drug therapy; M15.9 Polyosteoarthritis, unspecified; K21.00 Gastro-esophageal reflux disease with esophagitis, without bleeding; K76.0 Fatty (change of) liver, not elsewhere classified; G47.33 Obstructive sleep apnea (adult) (pediatric); M89.9 Disorder of bone, unspecified; F32.89 Other specified depressive episodes; E03.9 Hypothyroidism, unspecified; I10 Essential (primary) hypertension; E78.5 Hyperlipidemia, unspecified
CPT/HCPCS: 36415; 80053; 85025

== ENCOUNTER → 2023-07-09 | Outpatient (CLI) | payer MEDICARE, BC, SELFPAY ==
--- NOTE | 2023-07-09 | IMM_PTH ---
PATIENT: DEBBY TOVAR LOC: LAB U#:[id number] AGE/SX: 88/F ROOM: RE07/09/[address]: Dr. Prabhu Padilla MD : 1935 BED: DIS: 07/09/2023 SPEC #: [id number] RECD: 07/12/23 14:13 STATUS: MARZENA REQ #: [id number] CHARLIE: 07/09/23 00:[address]: Prabhu Padilla DEPT: IMMUNOHISTOCHEMISTRY RECD BY: Skylar Jewell ENTERED: 07/12/23 14:14 SP TYPE: IMMUNO OTHR DR: Dr. Michael Garcia MD Tissues: Neck, NOS Procedures: SMA (add) CALPONIN-1 (add) CD31 (add) CD34 (add) CD45 (add) CD56 (add) CK5-6 (add) DESMIN (add) NICHOLAS (add) KI-67 (add) Vimentin (add) FACTOR VIII (add) NEUROFIL (add) Pankeratin (initial) MELAN-A (add) P40 (add) MOC-31 (add) NSE (add) S-100 (add) PHYSICIAN & INSTITUTION [place] [phone] SPECIMEN INFORMATION: Tissue Source: Midline neck mass Clinical Info: Midline neck mass Specimen Number: [id number] CPT code: 37995, 64196 x18 METHODOLOGY: Deparaffinized sections of prefer/formalin-fixed tissue or PAP/DQ stained slides are incubated with monoclonal/polyclonal antibodies/oligonucleotide probes. Localization is made via biotin free immunoperoxidase method. Appropriate controls are performed and reacted as expected. Results on target cell population are indicated in the following table: RESULTS: ANTIBODY / CLONE RESULT CD45 (RP2/18) negative AE1-3 (AE1/AE3/PCK26) negative S-100 (4C4.9) negative Vimentin (V9) positive Melan A (A103) negative Actin (1A4) negative Desmin (CE-R-11) negative NICHOLAS (E29) negative P40 (BC28) negative CK5-6 (D5 & 1684) negative Ki-67 (30-9) positive, rare cells CD31 (OTIS/70A) negative Factor VIII (R Ag) negative CD34 (QBEnd-10) negative Neurofil (2F11) negative Calponin-1 (OR260T) negative CD56 (123C3.D5) negative NSE Neuron Specific Enolase negative MOC-31 (4561) negative These tests were developed and their performance characteristics determined by [facility]. They may not have been cleared or approved by the U.S. Food and Drug Administration. The FDA has determined that such clearance or approval is not necessary. The above immunohistochemical/dualISH markers are ordered and reviewed by the Pathologist. INTERPRETATION: Midline neck mass, fine needle aspiration (cell block): Atypical epithelioid neoplasm. 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 The above analysis does not elucidate a definitive primary. Excision of lesion is recommended for definitive classification. AM:vangie 07/15/2023 Case has been reviewed in consultation with Dr. Jimenez who concurs with the above diagnosis. IDC:SJ
--- NOTE | 2023-07-09 09:30 | ASPOS_PTH ---
PATIENT: DEBBY TOVAR LOC: LAB U#:[id number] AGE/SX: 88/F ROOM: RE07/09/[address]: Dr. Prabhu Padilla MD : 1935 BED: DIS: 07/09/2023 SPEC #: [id number] RECD: 07/09/23 11:33 STATUS: MARZENA RESis #: [id number] CHARLIE: 07/09/23 09:[address]: Prabhu Padilla DEPT: CYTOLOGY RECD BY: Guerda Flores ENTERED: 07/09/23 11:34 SP TYPE: ASP HERE OTHR DR: Dr. Michael Garcia MD Tissues: Neck, NOS Procedures: Surgery Specimen Level IV Cytology Other Fine Needle Asp on Site HEADER OPERATION: Fine needle aspiration, midline neck mass PRE-OP DIAGNOSIS: Midline neck mass TISSUE SUBMITTED: Midline neck mass DIAGNOSIS CYTOLOGY Fine needle aspiration, midline neck mass (smears and cell block): Atypical epithelioid neoplasm of uncertain type. See comment. AM:vangie 07/15/2023 COMMENT A fine needle aspiration was performed and the specimen is evaluated at the time of FNA by Dr. Rai. Immediate Evaluation = Favor malignant epithelioid neoplasm, inflamed. Case has been reviewed in consultation with Dr. Rai who concurs with the above diagnosis. IDC:AM Immunohistochemistry ([id number]) does not elucidate a definitive primary. A malignant neoplasm is favored. Excision of lesion is recommended for definitive classification. Case has been reviewed in consultation with Dr. Jimenez who concurs with the above diagnosis. IDC:SJ CYTOLOGY STUDY Slides are reviewed. CYTOLOGY GROSS Received is 0.2 ml of yellow-benites material labeled with the patient's name, and designated midline neck mass. Three imprints and one pap are made from the submitted fluid and the rest is added to CytoLyt for cell block preparation. Submitted for cytology study. / AM:vangie 07/09/2023 TC:0 CPT: 45171, 22309, 08594, 64567
== END | disposition home or self-care (01) ==
LOC: LAB 09:20
PROVIDERS: PCP Family Medicine; Referring Provider Otolaryngology Otolaryngology/Facial Plastic Surgery; Visit Provider Otolaryngology Otolaryngology/Facial Plastic Surgery
DX: R22.1 Localized swelling, mass and lump, neck (principal)
CPT/HCPCS: 10021; 81002; 88161; 88305; 88341; 88342

== ENCOUNTER → 2023-07-26 | Outpatient (CLI) | payer MEDICARE, BC, SELFPAY ==
--- NOTE | 2023-07-26 18:18 | CT_ITS ---
INDICATION: NECK MASS EXAMINATION: CT NECK WITHOUT AND WITH IV CONTRAST - CT Soft Tissue Neck WO/W Contrast Injection TECHNIQUE: Helically acquired images were obtained of the neck prior to and following IV contrast. A radiation dose optimization technique was used for this scan. IV Contrast dosage and agent: 100 mL of Isovue-300 RADIATION DOSAGE (If Supplied By Facility): CTDIvol = ( 16.86 ) mGy, DLP = ( 964.98 ) mGycm COMPARISON: Prior study dated: Thyroid ultrasound 06/10/2021 FINDINGS: NASOPHARYNX: Unremarkable. SUPRAHYOID NECK: Unremarkable oropharynx, oral cavity, parapharyngeal space, and retropharyngeal space. In the submandibular region subcutaneous tissues there is a 1 cm midline structure which may faintly enhance between pre and postcontrast imaging. This is well demarcated with no adjacent inflammation or invasion of the adjacent tissues. INFRAHYOID NECK: Unremarkable larynx, hypopharynx, and supraglottis. THYROID: Calcification in the left thyroid lobe with hypoattenuating nodule noted in the left lobe. SALIVARY GLANDS: Unremarkable. LYMPH NODES: No cervical or supraclavicular lymphadenopathy. VASCULAR STRUCTURES: Unremarkable. VISUALIZED PORTIONS OF THE ORBITS, PARANASAL SINUSES, MASTOID AIR CELLS AND SKULL BASE: Unremarkable. BONES: No acute or suspicious osseous abnormality. Degenerative changes of the spine. THORACIC INLET: Clear lung apices. CT/Soft Tissue Neck W/WO Contrast IMPRESSION: Nonspecific 1 cm nodular density in the submandibular/sublingual region near the midline. This may slightly enhance between pre and postcontrast imaging. No aggressive features, although there is some motion on the study resulting in artifact. No adjacent inflammation. This is of uncertain etiology. An ultrasound may be useful to better characterize and verify the solid nature of the lesion. No additional mass identified. Thyroid nodule which has been previously followed with ultrasound. Electronically Signed: Devon Zuñiga MD at 19:09 EDT ,
[2023-07-27 09:09] LABS: CREATININE FINGERSTICK 1.1 mg/dL (0.55-1.02)
== END | disposition home or self-care (01) ==
LOC: CT 08-13 08:28
PROVIDERS: PCP Family Medicine; Visit Provider Otolaryngology Otolaryngology/Facial Plastic Surgery
DX: R22.1 Localized swelling, mass and lump, neck (principal)
CPT/HCPCS: 70492; Q9967

== ENCOUNTER 2023-08-09 10:11 | Day surgery (SDC) | payer MEDICARE, BC, SELFPAY ==
--- NOTE | 2023-08-05 10:14 | EKG12_ITS ---
Test Reason : PRE OP Blood Pressure : / mmHG Vent. Rate : 055 BPM Atrial Rate : 055 BPM P-R Int : 206 ms QRS Dur : 080 ms QT Int : 428 ms P-R-T Axes : 067 023 026 degrees QTc Int : 409 ms Sinus bradycardia Low voltage QRS Nonspecific T wave abnormality Abnormal ECG Confirmed by CLARISSA MARTINI, TAMMY ([id number]), editor in chief MEL PENDLETON ([id number]) on 08/09/2023 2:23:11 PM Referred By: Rahat Padilla Confirmed By:TAMMY ROMO MD
[2023-08-05 11:13] LABS: Anion Gap 4 (5-15); BUN 17 mg/dL (7-18); BUN/Creat Ratio 19.1 RATIO (10-20); Calcium,Total 9.1 mg/dL (8.5-10.1); Chloride 108 mmol/L (98-107); Creatinine, Serum 0.89 mg/dL (0.55-1.02); EST Glomerular Filtration Rate 64 mL/min (>60); Est Glom Filt Rate - Afr Amer 77 mL/min (>60); Glucose 106 mg/dL (74-106); Potassium 4.1 mmol/L (3.5-5.1); Sodium Level 138 mmol/L (136-145)
[2023-08-05 11:49] LABS: Hematocrit 46.9 % (37-47); Hemoglobin 15.2 g/dL (12.0-15.0); Mean Corp Hgb Conc 32.4 g/dL (32-36); Mean Corpuscular Hgb 32.6 pg (27.0-32.0); Mean Corpuscular Volume 100.6 fL (81-99); Mean Platelet Vol. 11.4 fl (6.2-12.0); Platelet Count 240 K/mm3 (150-450); RBC Distribution Width CV 12.2 % (11.6-14.6); Red Blood Count 4.66 M/mm3 (4.2-5.4); White Blood Count 8.5 K/mm3 (4.4-11.0)
--- NOTE | 2023-08-09 | MASS_PTH ---
PATIENT: DEBBY TOVAR LOC: [facility] – [place] U#:[id number] AGE/SX: 88/F ROOM: RE08/09/[address]: Dr. Rahat Padilla MD : 1935 BED: DIS: 08/09/2023 SPEC #: [id number] RECD: 08/09/23 12:54 STATUS: MARZENA RESis #: [id number] CHARLIE: 08/09/23 00:[address]: Rahat Padilla DEPT: SURGICAL PATHOLOGY RECD BY: Isha Quach ENTERED: 08/09/23 13:21 SP TYPE: Mass OTHR DR: Dr. Michael Garcia MD Tissues: Skin of neck, NOS Procedures: Frozen Section (charge) Surgery Specimen Level IV HEADER OPERATION: Excision mass, midline neck, frozen section PRE-OP DIAGNOSIS: Localized swelling, mass and lump neck TISSUE SUBMITTED: Midline neck mass (short stitch - superior 12 o'clock, long stitch - right lateral 9 o'clock) FROZEN SECTION DIAGNOSIS Midline neck mass, excisional biopsy: Marked acute inflammation. Polarizable material (suture material). Negative for malignancy. MARY:vangie 08/09/2023 Case has been reviewed in consultation with Dr. Rai who concurs with the above diagnosis. IDC:AM MICROSCOPIC DIAGNOSIS Midline neck mass, excisional biopsy: Benign histiocytic reaction to suture material with abscess formation and reactive histiocytosis. Fat necrosis. Negative for acid fast bacilli and fungal organisms. See comment. AM:vangie 08/10/2023 COMMENT Immunohistochemistry ([id number]) supports the above diagnosis. Sections show suture material with associated granulomatous inflammation, abscess formation, inflammation, benign histiocytic reactive change and fat necrosis. There is no evidence of malignancy. Reference is made to the patient's previous cytology of midline neck mass ([id number]) in which atypical epithelioid neoplasm of uncertain type was identified. The atypical epithelioid cells from the fine needle aspiration correspond well to the highly reactive histiocytes identified in this resected specimen. Case has been reviewed in consultation with Dr. Jimenez who concurs with the above diagnosis. IDC:MARY MICROSCOPIC DESCRIPTION Slides are reviewed. GROSS DESCRIPTION Received fresh for frozen section diagnosis labeled with the patient's name is a specimen designated midline neck mass. The specimen consists of a piece of skin ellipse measuring 3.5 x 1.5 x 1.5 cm. The specimen is oriented as follows: short stitch - superior 12 o'clock, long stitch - right lateral 9 o'clock. The specimen is inked as follows: 12 o'clock margin - black, 6 o'clock margin - blue, 3 o'clock tip - green and 9 o'clock tip - yellow. The specimen is serially sectioned and submitted entirely for frozen section diagnosis in three cassettes. Cassette 1 contains the tips of the skin ellipse, 3 and 9 o'clock tips. / SJ:rg 08/09/2023 TC:2 CPT: 99601, 77509, 81971d5
--- NOTE | 2023-08-09 | IMM_PTH ---
PATIENT: DEBBY TOVAR LOC: [facility] [place][id number] AGE/SX: 88/F ROOM: RE08/09/[address]: Dr. Rahat Padilla MD : 1935 BED: DIS: 08/09/2023 SPEC #: [id number] RECD: 08/10/23 14:23 STATUS: MARZENA REQ #: [id number] CHARLIE: 08/09/23 00:[address]: Rahat Padilla DEPT: IMMUNOHISTOCHEMISTRY RECD BY: Skylar Jewell ENTERED: 08/10/23 14:25 SP TYPE: IMMUNO OTHR DR: Dr. Michael Garcia MD Tissues: Neck, NOS Procedures: CK7 (add) CK8 (add) NICHOLAS (add) KI-67 (add) P53 (add) Vimentin (add) Pankeratin (initial) CD68 (ADD) S-100 (add) PHYSICIAN & INSTITUTION [address] [address] SPECIMEN INFORMATION: Tissue Source: Midline neck mass Clinical Info: Localized swelling, mass and lump neck Specimen Number: [id number] #3 CPT code: 81307, 79363 x8 METHODOLOGY: Deparaffinized sections of prefer/formalin-fixed tissue or PAP/DQ stained slides are incubated with monoclonal/polyclonal antibodies/oligonucleotide probes. Localization is made via biotin free immunoperoxidase method. Appropriate controls are performed and reacted as expected. Results on target cell population are indicated in the following table: RESULTS: ANTIBODY / CLONE RESULT Block 3 AE1-3 (AE1/AE3/PCK26) negative CK8 ([id number]) negative Vimentin (V9) positive CD68 (KP-1) positive S-100 (4C4.9) negative NICHOLAS (E29) negative P53 (DO-7) negative, null pattern Ki-67 (30-9) positive, low CK7 (OV-TL12/30) negative These tests were developed and their performance characteristics determined by [facility]. They may not have been cleared or approved by the U.S. Food and Drug Administration. The FDA has determined that such clearance or approval is not necessary. The above immunohistochemical/dualISH markers are ordered and reviewed by the Pathologist. INTERPRETATION: Midline neck mass, excisional biopsy: No evidence of malignancy. AM:vangie 08/11/2023
[2023-08-09 10:27] VITALS: BP 151/73; PULSE 56; RESP 16; TEMP 36.3; O2SAT 99; BMI 27.4
[2023-08-09] MEDS: Lactated Ringers 1,000 ML 15 ML IV (10:30)
--- NOTE | 2023-08-09 12:27 | PCM.DC.SUM ---
Providers Primary Care Physician: Dr. Michael Garcia MD Reason For Visit: Excision, Mass , Midline neck mass, Medications at Discharge Home Medications metoprolol succinate 25 mg tablet,extended release 24 hr 25 mg PO DAILY 04/14/21 mometasone-formoterol HFA 100 mcg-5 mcg/actuation aerosol inhaler 1 puff inhalation BID PRN cough 04/14/21 multivitamin 1 tab PO DAILY 04/14/21 ramipril 5 mg capsule 5 mg PO DAILY 04/14/21 aspirin 81 mg tablet,delayed release (Adult Low Dose Aspirin) 81 mg PO .MWF start prior to left heart cath 05/03/21 hydroxychloroquine 200 mg tablet 200 mg PO BID 08/18/21 albuterol sulfate 90 mcg/actuation aerosol inhaler 2 inh inhalation Q6H PRN shortness of breath or wheezing 07/08/22 levothyroxine 75 mcg tablet 75 mcg PO DAILY 07/08/22 rosuvastatin 5 mg tablet See Rx Instructions .Route .COMPLEX #45 tabs 03/01/23 amiodarone 100 mg tablet See Rx Instructions .Route .COMPLEX #90 tabs 03/05/23 sertraline 25 mg tablet 25 mg PO Q24H PRN anxiety 08/05/23 Weight / BMI Weight Weight: 72.6 kg Body Mass Index (BMI) 27.4 D/C Instructions Discharge Diet: No restrictions Additional Dressing/Incision Instructions: Remove dressing Wednesday. May the incision wet at that time. Please Follow Up With: Rahat Padilla MD When: 10 days Meaningful Use Info Meaningful Use Diagnoses (Choose all that apply): None applicable Discharge Plan Admission Attending Provider: Rahat Padilla Primary Care Provider: Michael Garcia Discharge Orders/Prescriptions Prescriptions: No Action mometasone-formoterol 100-5 mcg/actuation HFA aerosol inhaler 1 puff inhalation BID PRN (Reason: cough) multivitamin Tablet 1 tab PO DAILY ramipril 5 mg capsule 5 mg PO DAILY levothyroxine 75 mcg tablet 75 mcg PO DAILY albuterol sulfate 90 mcg/actuation HFA aerosol inhaler 2 inh inhalation Q6H PRN (Reason: shortness of breath or wheezing) metoprolol succinate 25 mg tablet extended release 24 hr 25 mg PO DAILY hydroxychloroquine 200 mg tablet 200 mg PO BID sertraline 25 mg tablet 25 mg PO Q24H PRN (Reason: anxiety) aspirin [Adult Low Dose Aspirin] 81 mg tablet,delayed release (DR/EC) 81 mg PO .MWF rosuvastatin 5 mg tablet See Rx Instructions .ROUTE .COMPLEX Qty: 45 3RF Dose Instruction: TAKE 1 TABLET BY MOUTH EVERY OTHER DAY Rx Instructions: TAKE 1 TABLET BY MOUTH EVERY OTHER DAY amiodarone 100 mg tablet See Rx Instructions .ROUTE .COMPLEX Qty: 90 3RF Dose Instruction: TAKE 1 TABLET BY MOUTH EVERY DAY Rx Instructions: TAKE 1 TABLET BY MOUTH EVERY DAY Referrals / Follow Up: Michael Garcia MD [Primary Care Provider] - Disposition Disposition (needs filled in before D/C Order can be placed): Home, Self Care
[2023-08-09] MEDS: Lidocaine 2% /Epi 1:100 (20ml) 20 ML VIAL (12:41)
[2023-08-09] MEDS: Mupirocin Ointment 22gm Tube 1 APPLIC (13:25)
--- NOTE | 2023-08-09 13:33 | OP.PCM_ITS ---
Report of Operation Date of Procedure: 08/09/23 Pre-Operative Diagnosis: neck mass Post-Operative Diagnosis: same Surgery/Procedure Performed:: Excision neck mass (5x 2.7 cm) Surgeon: Rahat Padilla Type of Anesthesia: General Anesthesiologist: Gerry Pool Estimated Blood Loss (mL): minimal Description of Procedure: The patient was taken to the operating room on 08/09/2023. She was placed in the supine position on the operating room table. She was given sufficient general anesthesia. The head of bed was elevated 30 degrees. The patient was prepped and draped sterilely. 2% lidocaine with epinephrine was injected into the skin surrounding the intended incision. An incision was made around the mass with a 15 blade. This was an elliptical incision that included the mass with adequate margins. I kept the overlying skin contiguous with the mass. Sharp dissection was then used to identify the platysma. I then dissected all of the tissue superficial to the platysma with the mass. The specimen was marked with suture for pathology. It was sent for frozen section. I then obtained hemostasis with bipolar cautery. The wound was then irrigated with saline. Next, I closed the incision with 4-0 Vicryl for the deep sutures and 6- 0 running nylon for the skin. Pathology reported that there is no evidence of malignancy. A pressure dressing was applied. The patient was then awoken and brought to the recovery room in stable condition. Blood loss minimal, replacement none. Sponge, needle, and instrument count were correct at the end of the procedure.
[2023-08-09 13:34] VITALS: BP 138/80; BP 151/73; PULSE 78; RESP 18; TEMP 36.5; O2SAT 96
[2023-08-09 13:45] VITALS: BP 135/68; BP 151/73; PULSE 71; RESP 16; O2SAT 98
[2023-08-09 14:00] VITALS: BP 132/65; BP 151/73; PULSE 66; RESP 16; O2SAT 96
[2023-08-09 14:15] VITALS: BP 125/89; BP 151/73; PULSE 64; RESP 16; TEMP 36.3; O2SAT 99
[2023-08-09 14:35] VITALS: BP 151/73
== END 2023-08-09 15:08 | disposition home or self-care (01) ==
LOC: SDC 10:13 → AC 10:13
PROVIDERS: PCP Family Medicine; Referring Provider Otolaryngology; Visit Provider Otolaryngology
PROC: (CPT 11424; principal; 2023-08-09 11:45)
DX: L02.818 Cutaneous abscess of other sites (principal); D76.3 Other histiocytosis syndromes; M06.9 Rheumatoid arthritis, unspecified; R22.1 Localized swelling, mass and lump, neck; I10 Essential (primary) hypertension; E78.00 Pure hypercholesterolemia, unspecified; K21.9 Gastro-esophageal reflux disease without esophagitis; I25.10 Atherosclerotic heart disease of native coronary artery without angina pectoris; R05.9 Cough, unspecified; E03.9 Hypothyroidism, unspecified; Z79.82 Long term (current) use of aspirin; M79.89 Other specified soft tissue disorders
CPT/HCPCS: 11424; 00300; 36415; 80048; 85027; 88305; 88331; 88341; 88342; 93005; J7120; J2405

== ENCOUNTER → 2023-08-31 | Outpatient (CLI) | payer MEDICARE, BC, SELFPAY ==
[2023-08-31 12:15] LABS: Absolute Lymphocyte Count 1.36 X10^3/uL (0.83-4.51); Absolute Neutrophil Count 3.6 X10^3/uL (2.0-7.7); Basophil# 0.06 X10^3/uL; Basophil% 1.1 % (0-1); Eosinophil# 0.11 X10^3/uL; Eosinophils% 1.9 % (0-5); Hemoglobin 15.4 g/dL (12.0-15.0); Lymphocyte # 1.36 X10^3/ul (0.83-4.51); Lymphocyte % 23.9 % (19-41); Mean Corp Hgb Conc 32.8 g/dL (32-36); Mean Corpuscular Volume 100.9 fL (81-99); Mean Platelet Vol. 11.2 fl (6.2-12.0); Monocyte# 0.52 X10^3/uL; Monocyte% 9.1 % (0-10); NRBC Flagged by Analyzer 0 % (0-5); Neutrophil # 3.64 X10^3/uL (2.7-7.7); Platelet Count 185 K/mm3 (150-450); RBC Distribution Width CV 12.2 % (11.6-14.6); RBC Distribution Width SD 45.8 fl (35.1-43.9); Red Blood Count 4.66 M/mm3 (4.2-5.4); White Blood Count 5.7 K/mm3 (4.4-11.0)
[2023-08-31 12:42] LABS: ALB/GLOB Ratio 0.9 RATIO (0.9-2.4); AST(SGOT) 31 U/L (15-37); Alanine Aminotransfer ALT/SGPT 39 U/L (13-56); Albumin, Serum 3.4 g/dL (3.2-5.0); Alkaline Phosphatase 55 U/L (45-117); Anion Gap 8 (5-15); BUN 14 mg/dL (7-18); BUN/Creat Ratio 15.1 RATIO (10-20); Calcium,Total 8.7 mg/dL (8.5-10.1); Chloride 107 mmol/L (98-107); Creatinine, Serum 0.93 mg/dL (0.55-1.02); EST Glomerular Filtration Rate 61 mL/min (>60); Est Glom Filt Rate - Afr Amer 74 mL/min (>60); Globulin 3.8 g/dL (2.2-4.2); Glucose 145 mg/dL (74-106); Potassium 3.6 mmol/L (3.5-5.1); Protein, Total 7.2 g/dL (6.4-8.2); Sodium Level 138 mmol/L (136-145)
== END | disposition home or self-care (01) ==
LOC: MTLAB 09:48
PROVIDERS: PCP Family Medicine; Referring Provider Internal Medicine Rheumatology; Visit Provider Internal Medicine Rheumatology
DX: M06.4 Inflammatory polyarthropathy (principal); Z79.899 Other long term (current) drug therapy; M15.9 Polyosteoarthritis, unspecified
CPT/HCPCS: 36415; 80053; 85025

== ENCOUNTER → 2023-10-07 08:59 | Outpatient (REF) | payer SELFPAY ==
--- OUTSIDE RECORDS SUMMARY | 2023-10-07 09:55 | XMS RPT_ITS | CCD ---
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 Name Role Phone Tessy Otero MD Primary Care Provider [phone] Mikayla Benites Unavailable TESSY OTERO Attending Unavailable TESSY OTERO Primary Care Unavailable TESSY OTERO Referring Unavailable TESSY OTERO Primary Care Unavailable TESSY OTERO Attending Unavailable TESSY OTERO Referring Unavailable TESSY OTERO Primary Care Unavailable TESSY OTERO Referring Unavailable TESSY OTERO Primary Care Unavailable TESSY OTERO Referring Unavailable TESSY OTERO Primary Care Unavailable TESSY OTERO Referring Unavailable TESSY OTERO Primary Care Unavailable ANDREW CANCINO Attending Unavailable TESSY OTERO Primary Care Unavailable TESSY OTERO Attending Unavailable TESSY OTERO Primary Care Unavailable Tessy Otero MD Primary Care Provider Mikayla Benites Unavailable Allergies Allergy Classification Reported Allergen(s) Allergy Type Date of Onset Reaction(s) Facility (16 sources) atorvastatin; Translations: [ATORVASTATIN CALCIUM] Drug Allergy 07-01-2005 Other: See Comments [facility] (16 sources) Simvastatin; Translations: [SIMVASTATIN] Drug Allergy 07-01-2005 [facility] Work Phone: Medications Current Medications Medication Drug Class(es) Dates Sig (Normalized) Sig (Original) Inhalational Spacing Device (1 source) Start: 10-05-2022 End: 10-05-2022 Inhalational Spacing Device 1 Device one time only for 1 dose. 1 Each 0 10/05/2022 10/05/2022 Active Completed/Discontinued Medications Medication Drug Class(es) Dates Sig (Normalized) Sig (Original) [id number] 200 actuat albuterol 0.09 mg/actuat metered dose inhaler (9 sources) beta2-Adrenergic Agonist Start: 10-05-2022 take 2 puff(s) by inhalation every four hours as needed for wheezing albuterol HFA (PROVENTIL HFA, VENTOLIN HFA) 90 mcg/actuation inhaler Inhale 2 Puffs as instructed every 4 hours as needed for wheezing/shortnes s of breath. 18 g 5 10/05/2022 Active Problems Active Problems Problem Classification Problem Date Documented Date Episodic/Chronic Cardiac dysrhythmias (19 sources) Supraventricular tachycardia; Translations: [Supraventricular tachycardia] Onset: 04-07-2021 Chronic Disorders of lipid metabolism (2 sources) Mixed hyperlipidemia; Translations: [Mixed hyperlipidemia] Onset: 09-29-2022 Chronic Esophageal disorders (16 sources) Gastroesophageal reflux disease; Translations: [Gastro-esophageal reflux disease without esophagitis] 08-31-2005 Chronic Essential hypertension (20 sources) Essential hypertension; Translations: [Essential (primary) hypertension] Onset: 11-10-2006 Chronic Genitourinary symptoms and ill-defined conditions (1 source) Hematuria, unspecified; Translations: [Urinary tract infection with hematuria, site unspecified] Onset: 06-23-2023 Episodic Mood disorders (2 sources) Depressive disorder; Translations: [Depression, unspecified depression type] Chronic Osteoarthritis (15 sources) Degenerative joint disease involving multiple joints; Translations: [Polyosteoarthritis, unspecified] 08-31-2005 Chronic Other nutritional; endocrine; and metabolic disorders (17 sources) Disorder of lipoprotein AND/OR lipid metabolism; Translations: [Disorder of lipoprotein metabolism, unspecified] 08-26-2016 Chronic Other nutritional; endocrine; and metabolic disorders (1 source) Disorder of lipoprotein metabolism, unspecified; Translations: [Disorder of lipoprotein and lipid metabolism] Onset: 08-26-2016 Chronic Other screening for suspected conditions (not mental disorders or infectious disease) (8 sources) Patient encounter status; Translations: [Encounter for screening mammogram for malignant neoplasm of breast] Onset: 07-12-2023 Episodic Residual codes; unclassified (2 sources) Menopause present; Translations: [Asymptomatic menopausal state] Episodic Residual codes; unclassified (1 source) Asymptomatic menopausal state; Translations: [Asymptomatic menopausal state] Onset: 07-12-2023 Episodic Rheumatoid arthritis and related disease (19 sources) Rheumatoid arthritis of multiple joints; Translations: [Rheumatoid arthritis without rheumatoid factor, multiple sites] Onset: 08-26-2016 Chronic Thyroid disorders (20 sources) Hypothyroidism; Translations: [Hypothyroidism, unspecified] Onset: 07-13-2006 Chronic Urinary tract infections (1 source) Urinary tract infection, site not specified; Translations: [Urinary tract infection with hematuria, site unspecified] Onset: 06-23-2023 Episodic Past or Other Problems Problem Classification Problem Date Documented Da te Episodic/Chronic Other bone disease and musculoskeletal deformities (15 sources) Osteopenia; Translations: [Other specified disorders of bone density and structure, unspecified site] Onset: 05-13-2009 06-13-2012 Episodic Spondylosis; intervertebral disc disorders; other back problems (15 sources) Spinal stenosis; Translations: [Spinal stenosis, site unspecified] Onset: 04-21-2010 04-21-2010 Episodic Results Test Name Value Interpretation Reference Range Facil ity Vital Signs Date Time Vital Sign Value Performing Clinician Faci lity 05-13-2023 10:28-0400 Body weight 74.03 kg Tessy Otero MD Work Phone: [facility] 05-13-2023 10:28-0400 Diastolic blood pressure 70 mm[Hg] Tessy Otero MD Work Phone: [facility] 05-13-2023 10:28-0400 Heart rate 68 /min Tessy Otero MD Work Phone: [facility] 05-13-2023 10:28-0400 Respiratory rate 16 /min Tessy Otero MD Work Phone: [facility] 05-13-2023 10:28-0400 Systolic blood pressure 124 mm[Hg] Tessy Otero MD Work Phone: [facility] 04-12-2023 12:03-0400 Body weight 74.25 kg Tessy Otero MD Work Phone: [facility] 04-12-2023 12:03-0400 Diastolic blood pressure 70 mm[Hg] Tessy Otero MD Work Phone: [facility] 04-12-2023 12:03-0400 Heart rate 70 /min Tessy Otero MD Work Phone: [facility] 04-12-2023 12:03-0400 Respiratory rate 16 /min Tessy Otero MD Work Phone: [facility] 04-12-2023 12:03-0400 Systolic blood pressure 126 mm[Hg] Tessy Otero MD Work Phone: [facility] 10-05-2022 13:52-0500 Body weight 74.03 kg Tessy Otero MD Work Phone: [facility] 10-05-2022 13:52-0500 Diastolic blood pressure 74 mm[Hg] Tessy Otero MD Work Phone: [facility] 10-05-2022 13:52-0500 Heart rate 74 /min Tessy Otero MD Work Phone: [facility] 10-05-2022 13:52-0500 Respiratory rate 16 /min Tessy Otero MD Work Phone: [facility] 10-05-2022 13:52-0500 Systolic blood pressure 126 mm[Hg] Tessy Otero MD Work Phone: [facility] 03-04-2022 12:33-0400 Body weight 73.03 kg Tessy Otero MD Work Phone: [facility] 03-04-2022 12:33-0400 Diastolic blood pressure 78 mm[Hg] Tessy Otero MD Work Phone: [facility] 03-04-2022 12:33-0400 Heart rate 62 /min Tessy Otero MD Work Phone: [facility] 03-04-2022 12:33-0400 Respiratory rate 16 /min Tessy Otero MD Work Phone: [facility] 03-04-2022 12:33-0400 Systolic blood pressure 126 mm[Hg] Tessy Otero MD Work Phone: [facility] Encounters Encounter Date Encounter Type Care Provider Facility Start: 07-13-2023 Documentation procedure Mammog karina Coordinator [facility] Start: 07-13-2023 Letter encounter Mammography Coordinator [facility] Department Start: 07-12-2023 End: 07-12-2023 ambulatory TESSY OTERO Facility:[facility] Start: 07-12-2023 End: 07-12-2023 Subsequent hospital visit by physician Bone Density [facility] Work Phone: Radiology Procedures Date Procedure Procedure Detail Performing Clinician Start: 07-12-2023 Dxa bone density jerry dy 1/> sites axial skel Tessy Otero MD Work Phone: Start: 07-12-2023 Screening mammograph y bi 2-view breast inc fiorella Otero MD Work Phone: Start: 07-09-2022 Screening mammograph y bi 2-view breast inc fiorella Otero MD Work Phone: Start: 08-09-2019 Antibody screen Plan of Treatment Date Care Activity Detail Author Start: 07-12-2028 Urine microalbumin profile [facility] Start: 04-05-2026 DIABETES SCREEN DIABETES SCREEN [facility] Start: 04-05-2026 Diabetes Screening Diabetes Screenin g [facility] Start: 09-29-2025 DIABETES SCREEN DIABETES SCREEN [facility] Start: 03-02-2025 DIABETES SCREEN DIABETES SCREEN [facility] Start: 10-12-2023 End: 12-12-2023 CBC W Auto Differential panel - Blood CBC + DIFF Lab Routine SVT (supraventricular tachycardia) (HCC) Rheumatoid arthritis of multiple sites with negative rheumatoid factor (HCC) Expected: 10/12/2023 (Approximate), Expires: 12/12/2023 [facility] Work Phone: Immunizations Immunization Date Immunization Notes Care Provider Fa cili 10-08-2022 COVID-19 vaccine, ag e 12+ yr, bivalent (CloudFX) Tessy Otero MD Work Phone: [facility] 08-06-2022 influenza, high dose seasonal, preservative-free Tessy Otero MD Work Phone: [facility] 08-06-2022 influenza virus vaccine, unspecified formulation Mammography Coordinator [facility] 08-20-2021 influenza, high-dose , quadrivalent vaccine (FLUZONE HIGH DOSE QUADRIVALENT) Tessy Otero MD Work Phone: [facility] 12-21-2020 COVID-19 vaccine, fu ll dose (MODERNA) Tessy Otero MD Work Phone: [facility] 11-23-2020 COVID-19 vaccine, fu ll dose (MODERNA) Tessy Otero MD Work Phone: [facility] 08-06-2020 influenza, high dose seasonal, preservative-free Tessy Otero MD Work Phone: [facility] 05-17-2020 zoster vaccine recombinant Tessy Otero MD Work Phone: [facility] 03-11-2020 zoster vaccine recombinant Tessy Otero MD Work Phone: [facility] Work Phone: 07-24-2019 influenza, high dose seasonal, preservative-free Tessy Otero MD Work Phone: [facility] 07-12-2018 influenza, high dose seasonal, preservative-free Tessy Otero MD Work Phone: [facility] Work Phone: 07-12-2018 tetanus toxoid, redu patti diphtheria toxoid, and acellular pertussis vaccine, adsorbed Tessy Otero MD Work Phone: [facility] Work Phone: 09-27-2017 influenza, high dose seasonal, preservative-free Tessy Otero MD Work Phone: [facility] 08-26-2016 influenza, high dose seasonal, preservative-free Tessy Otero MD Work Phone: [facility] 07-22-2015 influenza, high dose seasonal, preservative-free Tessy Otero MD Work Phone: [facility] 07-22-2015 pneumococcal conjuga te vaccine, 13 valent Tessy Otero MD Work Phone: [facility] 07-24-2014 influenza, seasonal, injectable Tessy Otero MD Work Phone: [facility] 07-25-2013 influenza virus vaccine, unspecified formulation Tessy Otero MD Work Phone: [facility] 07-03-2011 zoster vaccine, live Tessy roman MD Work Phone: [facility] Work Phone: 07-27-2009 influenza virus vaccine, unspecified formulation Tessy Otero MD Work Phone: [facility] Work Phone: 03-08-2008 tetanus and diphther ia toxoids, adsorbed, preservative free, for adult use (2 Lf of tetanus toxoid and 2 Lf of diphtheria toxoid) Tessy Otero MD Work Phone: [facility] Work Phone: 08-29-2007 influenza virus vaccine, unspecified formulation Tessy Otero MD Work Phone: [facility] Work Phone: 10-07-2004 pneumococcal polysaccharide vaccine, 23 valent Tessy Otero MD Work Phone: [facility] Work Phone: 02-14-1996 tetanus and diphther ia toxoids, adsorbed, preservative free, for adult use (2 Lf of tetanus toxoid and 2 Lf of diphtheria toxoid) Tessy Otero MD Work Phone: [facility] Work Phone: Payers Date Payer Category Payer Medicare [id number] 2016 Unknown [employer] DICARE SUPPLEMENT [id number] 2016-Present [phone] [address] [place] [address] Indemnity [id number] 2016 Unknown [employer] DICDUANE SUPPLEMENT [id number] 2016-Present [phone] [address] [place] [address] Indemnity [id number] 2002 Medicare MEDICARE MEDICAR E A AND B [id number] 2002-Present [phone] [place] [address] Medicare [id number] 2002 Medicare MEDICARE MEDICAR E A AND B [id number] 2002-Present [phone] [place] [address] Medicare [id number] 2002 Medicare [id number] Social History Date Type Detail Facility Start: 06-13-2012 Tobacco smoking stat [facility] Never smoked tobacco [facility] Start: 03-04-2022 End: 06-23-2023 Alcohol intake Current drinker of alcohol (finding) [facility] Start: 1935 Sex Assigned At Not on file C [facility] Start: 02-22-2022 End: 07-09-2022 Exposure to SARS-CoV-2 (event) Not sure [facility] Start: 06-13-2012 Tobacco use and exposure Smokeless tobacco non-user [facility] Start: 05-17-2022 End: 05-27-2022 Exposure to SARS-CoV-2 (event) Yes [facility] Start: 04-12-2023 End: 05-13-2023 History of Social function [facility] Work Phone: Start: 04-12-2023 End: 05-13-2023 Tobacco use panel [facility] Work Phone: Adult Depression Screening Assessment 2 [facility] Work Phone: Medical Equipment Procedure Code Equipment Code Equipment Origin al Text Equipment Identifier Dates Mesh Bio-A Synth etic 10x7cm Surgical Reinforcement Hernia Repair - [id number] Start: 08-17-2019 Clinical Notes 10-24-2019 to 07-13-2023 Letter - Coordinator, Mammography - 07/13/2023 8:13 AM Braeden Lambert RT(Ashu) - 07/12/2023 1:00 PM Radha Em Mammo Tech - 07/12/2023 12:30 PM EDTPatient Instructions Note Date & Type Note Facility 07-13-2023 Miscellaneous Notes July 13, 2023 PID: [id number] Debby Mercado [address] [place] [address] Dear Ms. Mercado, We are pleased to inform you that the results of your recent breast imaging exam on 07/12/2023 are normal. Early detection of cancer is very important. We also understand recommendations regarding breast cancer screening are controversial. Please discuss with your primary care provider which strategy is best for you and whether a mammogram is right for you. Your imaging studies and report will be kept on file at [facility] as part of your permanent medical record and are available for your continuing care. Thank you for allowing us to help in meeting your health care needs. Sincerely, Dr. Prescott Interpreting Radiologist [facility] (Normal over 40) documented in this encounter [facility] 07-12-2023 Note HNO ID: [id number] Author: Braeden Lemus RT(Ashu) Service: ? Author Type: Technologist Type: Progress Notes Filed: 07/12/2023 1:30 PM Note Text: Radiology Service Progress Note PATIENT NAME: Debby Mercado DATE OF SERVICE: July 12, 2023 TIME: 1:11 PM PATIENT IDENTITY VERIFICATION COMPLETED USING TWO (2) IDENTIFIERS: Name and Date of confirmed by patient verbally. FALL SCREENING: Has the patient had 2 falls in the last year or 1 fall with injury or currently using an Ambulatory Assistive Device (Walker, Cane, Wheelchair, Crutches, etc.)? No PATIENT GENDER DATA: Female. status: : No status: NO. PATIENT RELEVANT IMPLANT DATA REVIEWED: Not Applicable RADIOLOGY DEPARTMENT: Bone Density PERIPHERAL IV DATA: Not applicable SIGNED BY: RT Jose(R) July 12, 2023 1:[address] [facility] 07-12-2023 Note HNO ID: [id number] Author: Radha Chambers Mammo Tech Service: ? Author Type: Electronic News Gathering Camera Person Type: Progress Notes Filed: 07/12/2023 1:11 PM Note Text: Radiology Service Progress Note PATIENT NAME: Debby Mercado DATE OF SERVICE: July 12, 2023 TIME: 12:58 PM PATIENT IDENTITY VERIFICATION COMPLETED USING TWO (2) IDENTIFIERS: Name and Date of confirmed by patient verbally. FALL SCREENING: Has the patient had 2 falls in the last year or 1 fall with injury or currently using an Ambulatory Assistive Device (Walker, Cane, Wheelchair, Crutches, etc.)? No PATIENT GENDER DATA: Female. status: : No status: NO. PATIENT RELEVANT IMPLANT DATA REVIEWED: Not Applicable RADIOLOGY DEPARTMENT: Mammography PERIPHERAL IV DATA: Not applicable SIGNED BY: Asohk Jackson July 12, 2023 12:[address] [facility] 07-12-2023 History of Presen t illness Narrative Radiology Service Progress Note PATIENT NAME: Debby Mercado DATE OF SERVICE: July 12, 2023 TIME: 1:11 PM PATIENT IDENTITY VERIFICATION COMPLETED USING TWO (2) IDENTIFIERS: Name and Date of confirmed by patient verbally. FALL SCREENING: Has the patient had 2 falls in the last year or 1 fall with injury or currently using an Ambulatory Assistive Device (Walker, Cane, Wheelchair, Crutches, etc.)? No PATIENT GENDER DATA: Female. status: : No status: NO. PATIENT RELEVANT IMPLANT DATA REVIEWED: Not Applicable RADIOLOGY DEPARTMENT: Bone Density PERIPHERAL IV DATA: Not applicable SIGNED BY: RT Jose(R) July 12, 2023 1:11 PM documented in this encounter [facility] 07-12-2023 History of Presen t illness Narrative Radiology Service Progress Note PATIENT NAME: Debby Mercado DATE OF SERVICE: July 12, 2023 TIME: 12:58 PM PATIENT IDENTITY VERIFICATION COMPLETED USING TWO (2) IDENTIFIERS: Name and Date of confirmed by patient verbally. FALL SCREENING: Has the patient had 2 falls in the last year or 1 fall with injury or currently using an Ambulatory Assistive Device (Walker, Cane, Wheelchair, Crutches, etc.)? No PATIENT GENDER DATA: Female. status: : No status: NO. PATIENT RELEVANT IMPLANT DATA REVIEWED: Not Applicable RADIOLOGY DEPARTMENT: Mammography PERIPHERAL IV DATA: Not applicable SIGNED BY: Ashok Jackson July 12, 2023 12:58 PM documented in this encounter [facility] 07-02-2023 Miscellaneous Notes The following approved medication requests have been transmitted electronically. Requested Prescriptions Pending Prescriptions Disp Refills metoprolol succinate ER (TOPROL XL) 25 mg 24 hr tablet 90 tablet 3 Sig: Take 1 tablet by mouth once daily. Nolan Sharpe APRN.CNP Patient has been identified by name and date of : Yes Last office visit in this department: 06/23/2023 Labs-04/05/23 NOV-10/14/23 RX INSTRUCTIONS: Patient aware RX will be sent to pharmacy. No need to notify patient. Patient phones requesting refills as follows: Requested Prescriptions Pending Prescriptions Disp Refills metoprolol succinate ER (TOPROL XL) 25 mg 24 hr tablet 90 tablet 3 Sig: Take 1 tablet by mouth once daily. Please review and advise. Cecilia Hackett documented in this encounter [facility] 06-23-2023 Note HNO ID: [id number] Author: Andrew Cancino APRN.CNP Service: ? Author Type: Nurse Practitioner Type: Progress Notes Filed: 06/23/2023 3:46 PM Note Text: This is a 87 year old female who presents today with: Patient presents with: Acute Visit: urinary urgency/frequency HISTORY OF PRESENT ILLNESS: Debby Mercado is a 87 year old female. Patient presents with: Acute Visit: urinary urgency/frequency Increased urinary frequency and dysuria. Started yesterday. No abdominal pain/Flank pain, fever, or chills. No hematuria. History of UTI's in the past. PAST MEDICAL HISTORY: PAST MEDICAL HISTORY Diagnosis Date Asthma Depressive disorder, not elsewhere classified Esophageal reflux Generalized osteoarthrosis, unspecified site GERD (gastroesophageal reflux disease) Hiatal hernia 04/19/2019 Other and unspecified hyperlipidemia Rheumatoid arthritis (HCC) Unspecified essential hypertension Unspecified hypothyroidism PAST SURGICAL HISTORY Procedure Laterality Date APPENDECTOMY 1952 ARTHRP KNE CONDYLEANDPLATU MEDIALANDLAT COMPARTMENTS Knee replacement, total, bilateral CATARACT SURGERY, COMPLEX 2018 COLONOSCOPY 11-04-05 Yulia Rudolph MD/[place]-repeat in COLONOSCOPY 2017 [facility] - reported as negative ESOPHAGOGASTRODUODENOSCOPY TRANSORAL DIAGNOSTIC 04/19/2019 EGD LAPS RPR PARAESPHGL HRNA INCL FUNDPLSTY W/O MESH 08/17/2019 Dr. Paniagua LAPS SURG CHOLECYSTECTOMY W/CHOLANGIOGRAPHY 04-17-08 PAST SURGICAL HISTORY OF N/A 07/12/2019 EGD w/biopsy and Esophageal Manometry REVJ TOT KNEE ARTHRP FEMANDENTIRE TIBIAL COMPONE 05/2008 Knee replacement, revision-right knee redo REVJ TOTAL KNEE ARTHRP W/WO ALGRFT 1 COMPONENT 2011 Left knee RPR UMBILICAL HERNIA < 5 YRS REDUCIBLE [id number] Hernia repair, umbilical VAGINAL HYSTERECTOMY UTERUS 250 GM/< [id number] R ooph and anterior repair ALLERGIES Lipitor [Atorvastatin Calcium] and Zocor [Simvastatin] MEDICATIONS Current Outpatient Medications Medication Sig aspirin, enteric coated (ASPIRIN, ENTERIC COATED) 81 mg EC tablet Take 1 tablet by mouth every other day. sertraline (ZOLOFT) 25 mg tablet Take 1 tablet by mouth once daily. omeprazole (PRILOSEC) 20 mg capsule Take 1 capsule by mouth daily before breakfast. 1/2 hr before meal. Getting OTC levothyroxine (SYNTHROID) 75 mcg tablet Take 1 tablet by mouth once daily. Take on empty stomach. For Thyroid mometasone-formoterol (DULERA) 100-5 mcg/actuation inhaler Inhale 1 Puff as instructed twice daily. albuterol HFA (PROVENTIL HFA, VENTOLIN HFA) 90 mcg/actuation inhaler Inhale 2 Puffs as instructed every 4 hours as needed for wheezing/shortness of breath. ramipril (ALTACE) 5 mg capsule Take 1 capsule by mouth once daily. Pt's [place] pcp lowered dose to 5 mg metoprolol succinate ER (TOPROL XL) 25 mg 24 hr tablet Take 1 tablet by mouth once daily. rosuvastatin (CRESTOR) 5 mg tablet Take 5 mg by mouth. Taking 1 pill every other day-Dr. Forrester amiodarone (PACERONE) 100 mg tablet Take 1 tablet by mouth once daily. Dr. Forrester hydrOXYchloroQUINE (PLAQUENIL) 200 mg tablet Take 1 tablet by mouth once daily. MULTIVITAMIN TAB Take one(1) tablet daily. SANTI-MAG-VIT [id number] ORAL SUSP Take one(1) tablet daily. No current facility-administered medications for this visit. FAMILY HISTORY Problem Relation Age of Onset Diabetes Mother Coronary Artery Disease Father Cancer Father stomach cancer Developmental problem Sister multiple sclerosis Cancer Sister Social History Tobacco Use Smoking status: Never Smokeless tobacco: Never Vaping Use Vaping Use: Never used Substance Use Topics Alcohol use: Yes Comment: occasionally Drug use: No REVIEW OF SYSTEMS GENERAL: No weight loss, malaise or fevers/chills HEENT: Negative for frequent or significant headaches, No changes in hearing or vision. NECK: Negative for lumps, goiter, pain and significant neck swelling RESPIRATORY: Negative for cough, hemoptysis, wheezing, dyspnea or shortness of breath CARDIOVASCULAR: Negative for chest pain, leg swelling, orthopnea, or palpitations GI: No nausea, vomiting, or diarrhea/constipation. No hematochezia/melena. No heartburn or reflux symptoms. : + Dysuria/Increased urinary frequency MUSCULOSKELETAL: Negative for joint pain or swelling. SKIN: Negative for lesions, rash, and itching ENDOCRINE: Negative for cold or heat intolerance, polyuria, polydipsia and goiter NEURO: No history of headaches, syncope, paralysis, seizures or tremors MOOD: Negative for depression, anxiety, or suicidal ideation. EXAM: BP 114/76 Pulse 61 Resp 16 Wt 72.6 kg (160 lb) SpO2 99% BMI 27.46 kg/m? PHYSICAL EXAM: General Appearance: Well appearing, alert, in no acute distress, well-hydrated, well nourished. Skin: Skin color, texture, turgor normal, no suspicious rashes or lesions. Head: Normocephalic, no masses, lesions, tenderness or abnormali (more content not included)... [facility] 06-23-2023 Miscellaneous Notes Patient calls for urinary urgency, frequency, and mild discomfort. Nurse triage completed. Protocol recommends see provider within 24 hours. Patient request appointment today. Appt scheduled. Care advice reviewed. Patient verbalizes understanding. Reason for Disposition [1] Pain or burning with passing urine (urination) AND [2] female Age > 50 years Answer Assessment - Initial Assessment Questions 1. SYMPTOM: Urgency and Frequency. Some mild discomfort with urination. 2. ONSET:Yesterday 3. PAIN: Mild discomfort 4. CAUSE: Patient believes a UTI. 5. OTHER SYMPTOMS: Mild discomfort. No fever, flank pain, blood in urine, or pain with urination. Answer Assessment - Initial Assessment Questions 1. SYMPTOM: Urgency and Frequency. Some mild discomfort with urination. 2. ONSET:Yesterday 3. PAIN: Mild discomfort 4. CAUSE: Patient believes a UTI. 5. OTHER SYMPTOMS: Mild discomfort. No fever, flank pain, blood in urine, or pain with urination. Protocols used: Urinary Bzqdwtin-YCQCQ-LB, Urination Pain - Pazdpc-YPHGU-PJ documented in this encounter [facility] 06-11-2023 Miscellaneous Notes Patient did home covid test today that is positive. Today is day 3 of symptoms. Patient reports she feels better today than yesterday, and her symptoms are mild. Patient is not interested in taking antiviral. Patient agreeable to home care recommendations and agreeable to call back with any questions or concerns. Reason for Disposition [1] COVID-19 diagnosed by positive lab test (e.g., PCR, rapid self-test kit) AND [2] mild symptoms (e.g., cough, fever, others) AND [3] no complications or SOB Answer Assessment - Initial Assessment Questions 1. COVID-19 DIAGNOSIS: Test posititive this morning on home covid test. 2. COVID-19 EXPOSURE Doesn't know. Was with daughter last Wednesday and she has it also. Both tested positive today. 3. ONSET: Tu. Today is day 3 4. WORST SYMPTOM: Cough. 5. COUGH: Yes. Comes and goes. Mild. 6. FEVER: No 7. RESPIRATORY STATUS: No SOB, No wheezing. 8. YBKCVU-PQJV-ADPTX: Better compared to yesterday. 9. HIGH RISK DISEASE: Asthma a little bit uses inhalers. 10. VACCINE: Moderna. 3 shots 11. BOOSTER: Yes moderna. 10-08-22. 12. : N/A 13. OTHER SYMPTOMS: Tired, Aches. No fever. No sinus. No ear issues. 14. O2 SATURATION MONITOR: No. BP 144/80 (61) Protocols used: Coronavirus (COVID-19) Diagnosed or Dwboxfvsh-GYXQO-HU documented in this encounter [facility] 05-13-2023 Note HNO ID: [id number] Author: Tessy Otero MD Service: ? Author Type: Physician Type: Progress Notes Filed: 05/13/2023 5:24 PM Note Text: Chief Complaint Patient presents with: F/U 1 month: Zoloft HPI Debby Mercado is a 87 year old female who presents here today for a 1 month follow up. Pt here today for a 1 month follow up. Depression: At previous visit pt was started on Zoloft 25 mg once daily due to increased episodes of depression. Pt reported crying, feeling down and having little interest in things that she used to enjoy. She feels she is doing a lot better on the Zoloft 25 mg but she would like to possibly increase the dosage to 50 mg a day if needed. She is going to wait on increasing at this time, she only wants to increase it if her daughter gets bad news regarding her breast biopsy. Past medical history, appointments, medications, allergies reviewed. Previous Medical History PAST MEDICAL HISTORY Diagnosis Date Asthma Depressive disorder, not elsewhere classified Esophageal reflux Generalized osteoarthrosis, unspecified site GERD (gastroesophageal reflux disease) Hiatal hernia 04/19/2019 Other and unspecified hyperlipidemia Rheumatoid arthritis (HCC) Unspecified essential hypertension Unspecified hypothyroidism Previous Surgical History PAST SURGICAL HISTORY Procedure Laterality Date APPENDECTOMY 1952 ARTHRP KNE CONDYLEANDPLATU MEDIALANDLAT COMPARTMENTS Knee replacement, total, bilateral CATARACT SURGERY, COMPLEX 2018 COLONOSCOPY 11-04-05 Yulia Rudolph MD/[place]-repeat [facility] - reported as negative ESOPHAGOGASTRODUODENOSCOPY TRANSORAL DIAGNOSTIC 04/19/2019 EGD LAPS RPR PARAESPHGL HRNA INCL FUNDPLSTY W/O MESH 08/17/2019 Dr. Paniagua LAPS SURG CHOLECYSTECTOMY W/CHOLANGIOGRAPHY 04-17-08 PAST SURGICAL HISTORY OF N/A 07/12/2019 EGD w/biopsy and Esophageal Manometry REVJ TOT KNEE ARTHRP FEMANDENTIRE TIBIAL COMPONE 05/2008 Knee replacement, revision-right knee redo REVJ TOTAL KNEE ARTHRP W/WO ALGRFT 1 COMPONENT 2011 Left knee RPR UMBILICAL HERNIA < 5 YRS REDUCIBLE [id number] Hernia repair, umbilical VAGINAL HYSTERECTOMY UTERUS 250 GM/< [id number] R ooph and anterior repair Family History FAMILY HISTORY Problem Relation Age of Onset Diabetes Mother Coronary Artery Disease Father Cancer Father stomach cancer Developmental problem Sister multiple sclerosis Cancer Sister Patient Allergies ALLERGIES Allergen Reactions Lipitor [Atorvastat* Other: See Comments Muscle aches Zocor [Simvastatin] Current Medications Current Outpatient Medications on File Prior to Visit Medication Sig aspirin, enteric coated (ASPIRIN, ENTERIC COATED) 81 mg EC tablet Take 1 tablet by mouth every other day. sertraline (ZOLOFT) 25 mg tablet Take 1 tablet by mouth once daily. omeprazole (PRILOSEC) 20 mg capsule Take 1 capsule by mouth daily before breakfast. 1/2 hr before meal. Getting OTC levothyroxine (SYNTHROID) 75 mcg tablet Take 1 tablet by mouth once daily. Take on empty stomach. For Thyroid mometasone-formoterol (DULERA) 100-5 mcg/actuation inhaler Inhale 1 Puff as instructed twice daily. albuterol HFA (PROVENTIL HFA, VENTOLIN HFA) 90 mcg/actuation inhaler Inhale 2 Puffs as instructed every 4 hours as needed for wheezing/shortness of breath. ramipril (ALTACE) 5 mg capsule Take 1 capsule by mouth once daily. Pt's [place] pcp lowered dose to 5 mg metoprolol succinate ER (TOPROL XL) 25 mg 24 hr tablet Take 1 tablet by mouth once daily. rosuvastatin (CRESTOR) 5 mg tablet Take 5 mg by mouth. Taking 1 pill every other day-Dr. Forrester amiodarone (PACERONE) 100 mg tablet Take 1 tablet by mouth once daily. Dr. Forrester hydrOXYchloroQUINE (PLAQUENIL) 200 mg tablet Take 1 tablet by mouth once daily. MULTIVITAMIN TAB Take one(1) tablet daily. SANTI-MAG-VIT [id number] ORAL SUSP Take one(1) tablet daily. No current facility-administered medications on file prior to visit. Social History Social History Tobacco Use Smoking status: Never Smokeless tobacco: Never Vaping Use Vaping Use: Never used Substance Use Topics Alcohol use: Yes Comment: occasionally Drug use: No EXAM: BP 124/70 Pulse 68 Resp 16 Wt 74 kg (163 lb 3.2 oz) BMI 28.01 kg/m? General Appearance: Well appearing, alert, in no acute distress, well-hydrated, well nourished.. Lungs: Lungs clear to auscultation. No wheezing, rhonchi, rales.. Heart: RRR without murmur, gallop, or rubs. No ectopy. Health Maintenance List COVID-19 VACCINE(6 - Moderna series) due on 02/06/2023 INFLUENZA(1) due on 06/25/2023 DIABETES SCREEN due on 04/05/2026 DTAP,TDAP,TD(2 - Td or Tdap) due on 07/12/2028 BONE DENSITY Completed ADVANCE DIRECTIVE DISCUSSION Completed DEPRESSION ASSESSMENT Completed SHINGRIX VACCINE Completed PNEUMOCOCCAL: 65+ Completed Data reviewed None ASSESSMENT/PLAN: 1. Mild episode of rec (more content not included)... [facility] 05-13-2023 History of Presen t illness Narrative Chief Complaint Patient presents with: F/U 1 month: Zoloft HPI Debby Julienne Mercado is a 87 year old female who presents here today for a 1 month follow up. Pt here today for a 1 month follow up. Depression: At previous visit pt was started on Zoloft 25 mg once daily due to increased episodes of depression. Pt reported crying, feeling down and having little interest in things that she used to enjoy. She feels she is doing a lot better on the Zoloft 25 mg but she would like to possibly increase the dosage to 50 mg a day if needed. She is going to wait on increasing at this time, she only wants to increase it if her daughter gets bad news regarding her breast biopsy. Past medical history, appointments, medications, allergies reviewed. Previous Medical History PAST MEDICAL HISTORY Diagnosis Date Asthma Depressive disorder, not elsewhere classified Esophageal reflux Generalized osteoarthrosis, unspecified site GERD (gastroesophageal reflux disease) Hiatal hernia 04/19/2019 Other and unspecified hyperlipidemia Rheumatoid arthritis (HCC) Unspecified essential hypertension Unspecified hypothyroidism Previous Surgical History PAST SURGICAL HISTORY Procedure Laterality Date APPENDECTOMY 1952 ARTHRP KNE CONDYLE&PLATU MEDIAL&LAT COMPARTMENTS Knee replacement, total, bilateral CATARACT SURGERY, COMPLEX 2018 COLONOSCOPY 11-04-05 Yulia Rudolph MD/[place]-repeat in COLONOSCOPY 2017 [facility] - reported as negative ESOPHAGOGASTRODUODENOSCOPY TRANSORAL DIAGNOSTIC 04/19/2019 EGD LAPS RPR PARAESPHGL HRNA INCL FUNDPLSTY W/O MESH 08/17/2019 Dr. Paniagua LAPS SURG CHOLECYSTECTOMY W/CHOLANGIOGRAPHY 04-17-08 PAST SURGICAL HISTORY OF N/A 07/12/2019 EGD w/biopsy and Esophageal Manometry REVJ TOT KNEE ARTHRP FEM&ENTIRE TIBIAL COMPONE 05/2008 Knee replacement, revision-right knee redo REVJ TOTAL KNEE ARTHRP W/WO ALGRFT 1 COMPONENT 2011 Left knee RPR UMBILICAL HERNIA < 5 YRS REDUCIBLE [id number] Hernia repair, umbilical VAGINAL HYSTERECTOMY UTERUS 250 GM/< [id number] R ooph and anterior repair Family History FAMILY HISTORY Problem Relation Age of Onset Diabetes Mother Coronary Artery Disease Father Cancer Father stomach cancer Developmental problem Sister multiple sclerosis Cancer Sister Patient Allergies ALLERGIES Allergen Reactions Lipitor [Atorvastat* Other: See Comments Muscle aches Zocor [Simvastatin] Current Medications Current Outpatient Medications on File Prior to Visit Medication Sig aspirin, enteric coated (ASPIRIN, ENTERIC COATED) 81 mg EC tablet Take 1 tablet by mouth every other day. sertraline (ZOLOFT) 25 mg tablet Take 1 tablet by mouth once daily. omeprazole (PRILOSEC) 20 mg capsule Take 1 capsule by mouth daily before breakfast. 1/2 hr before meal. Getting OTC levothyroxine (SYNTHROID) 75 mcg tablet Take 1 tablet by mouth once daily. Take on empty stomach. For Thyroid mometasone-formoterol (DULERA) 100-5 mcg/actuation inhaler Inhale 1 Puff as instructed twice daily. albuterol HFA (PROVENTIL HFA, VENTOLIN HFA) 90 mcg/actuation inhaler Inhale 2 Puffs as instructed every 4 hours as needed for wheezing/shortness of breath. ramipril (ALTACE) 5 mg capsule Take 1 capsule by mouth once daily. Pt's [place] pcp lowered dose to 5 mg metoprolol succinate ER (TOPROL XL) 25 mg 24 hr tablet Take 1 tablet by mouth once daily. rosuvastatin (CRESTOR) 5 mg tablet Take 5 mg by mouth. Taking 1 pill every other day-Dr. Forrester amiodarone (PACERONE) 100 mg tablet Take 1 tablet by mouth once daily. Dr. Forrester hydrOXYchloroQUINE (PLAQUENIL) 200 mg tablet Take 1 tablet by mouth once daily. MULTIVITAMIN TAB Take one(1) tablet daily. SANTI-MAG-VIT [id number] ORAL SUSP Take one(1) tablet daily. No current facility-administered medications on file prior to visit. Social History Social History Tobacco Use Smoking status: Never Smokeless tobacco: Never Vaping Use Vaping Use: Never used Substance Use Topics Alcohol use: Yes Comment: occasionally Drug use: No EXAM: BP 124/70 Pulse 68 Resp 16 Wt 74 kg (163 lb 3.2 oz) BMI 28.01 kg/m General Appearance: Well appearing, alert, in no acute distress, well-hydrated, well nourished.. Lungs: Lungs clear to auscultation. No wheezing, rhonchi, rales.. Heart: RRR without murmur, gallop, or rubs. No ectopy. Health Maintenance List COVID-19 VACCINE(6 - Moderna series) due on 02/06/2023 INFLUENZA(1) due on 06/25/2023 DIABETES SCREEN due on 04/05/2026 DTAP,TDAP,TD(2 - Td or Tdap) due on 07/12/2028 BONE DENSITY Completed ADVANCE DIRECTIVE DISCUSSION Completed DEPRESSION ASSESSMENT Completed SHINGRIX VACCINE Completed PNEUMOCOCCAL: 65+ Completed Data reviewed None ASSESSMENT/PLAN: 1. Mild episode of recurrent major depressive disorder (HCC) - ICD9: 296.31, ICD10: F33.0 Improved Continue with Zoloft 25 mg, if needs to increase to 50 mg notify office Follow up in 5 months as planned. I agree with the Chief Complaint, ROS, and Past Histories independently gathered by the clinical decision support manager and the remaining scribed note accurately describes my personal service to the patient. Medical Decision Making: Problems: Low: Stable chronic illness Risk: Moderate: Drug management Medical Decision Making Level: 3 - Low Tessy Otero MD The documentation for this note was completed by Aniyah Fletcher Ma acting as scribe for Tessy Otero MD. May 13, 2023 10:28 AM. Aniyah Fletcher Ma documented in this encounter [facility] 04-12-2023 Note HNO ID: [id number] Author: Tessy Otero MD Service: ? Author Type: Physician Type: Progress Notes Filed: 04/12/2023 12:30 PM Note Text: Chief Complaint Patient presents with: 6 Month Exam HPI Debby Mercado is a 87 year old female who presents here today for 6 month follow up. Follows with a provider in [place] while there from Sep-January. Has an advanced directive. No bowel, Gi, or urinary issues. Uses probiotic and fiber supplement daily to keep bowels moving, has chronic constipation. Tries to avoid dairy and popcorn due to it causing stools to become too loose. SOB: allergy induced cough and SOB. Using Dulera inhaler daily and Albuterol inhaler prn. Thyroid: Taking Synthroid 75 mcg daily. Denies missing any dosages. Follows with Dr. Padilla for the thyroid nodules. Lipid: Taking Crestor 5 mg every other day along with an 81 mg Aspirin every other day. She does exercise with a aed trainer while in [place] as well as walking and biking. She tries to watch diet. Memory: No changes. HTN: Follows with Dr. Forrester, Cardio with [facility]. Denies any issues with chest pains, dizziness, or unusual SOB. Checking BP at home with readings running around 120/70. Taking Altace 5 mg daily, Amiodarone 100 mg daily and Metoprolol 25 mg daily. RA: Following with Rheum, Dr. Benites who prescribes Plaquenil 200 mg daily. Depression: Has had some increased issues with crying and feeling down, little interest in things she enjoys. Stated she used Prozac in the past and did counseling which helped. She stated that this happened to her in a long time ago, stated her son and about 10 years after she started having some issues with depression, crying all the time so that is when Dr. Shaw put her on the Prozac. The after effects of getting off the Prozac were difficulty for her. She stated that her 8 years ago and recently her really good friend . She denies any SI/HI. She wants to start on medication but she wants something really mild. She is trying to manage the depression, is making friends with other ladies. She does not feel that she would benefit from counseling. She is also still getting out to walk and stay active with other activities. Depression screening tool completed and reviewed. Based on score and interview, patient does have mild depression; will start medication. Past medical history, appointments, medications, allergies reviewed. Previous Medical History PAST MEDICAL HISTORY Diagnosis Date Asthma Depressive disorder, not elsewhere classified Esophageal reflux Generalized osteoarthrosis, unspecified site GERD (gastroesophageal reflux disease) Hiatal hernia 04/19/2019 Other and unspecified hyperlipidemia Rheumatoid arthritis (HCC) Unspecified essential hypertension Unspecified hypothyroidism Previous Surgical History PAST SURGICAL HISTORY Procedure Laterality Date APPENDECTOMY 1952 ARTHRP KNE CONDYLEANDPLATU MEDIALANDLAT COMPARTMENTS Knee replacement, total, bilateral CATARACT SURGERY, COMPLEX 2018 COLONOSCOPY 11-04-05 Yulia Rudolph MD/[place]-repeat in COLONOSCOPY 2017 [facility] - reported as negative ESOPHAGOGASTRODUODENOSCOPY TRANSORAL DIAGNOSTIC 04/19/2019 EGD LAPS RPR PARAESPHGL HRNA INCL FUNDPLSTY W/O MESH 08/17/2019 Dr. Paniagua LAPS SURG CHOLECYSTECTOMY W/CHOLANGIOGRAPHY 04-17-08 PAST SURGICAL HISTORY OF N/A 07/12/2019 EGD w/biopsy and Esophageal Manometry REVJ TOT KNEE ARTHRP FEMANDENTIRE TIBIAL COMPONE 05/2008 Knee replacement, revision-right knee redo REVJ TOTAL KNEE ARTHRP W/WO ALGRFT 1 COMPONENT 2011 Left knee RPR UMBILICAL HERNIA < 5 YRS REDUCIBLE [id number] Hernia repair, umbilical VAGINAL HYSTERECTOMY UTERUS 250 GM/< [id number] R ooph and anterior repair Family History FAMILY HISTORY Problem Relation Age of Onset Diabetes Mother Coronary Artery Disease Father Cancer Father stomach cancer Developmental problem Sister multiple sclerosis Cancer Sister Patient Allergies ALLERGIES Allergen Reactions Lipitor [Atorvastat* Other: See Comments Muscle aches Zocor [Simvastatin] Current Medications Current Outpatient Medications on File Prior to Visit Medication Sig omeprazole (PRILOSEC) 20 mg capsule Take 1 capsule by mouth daily before breakfast. 1/2 hr before meal. Getting OTC levothyroxine (SYNTHROID) 75 mcg tablet Take 1 tablet by mouth once daily. Take on empty stomach. For Thyroid mometasone-formoterol (DULERA) 100-5 mcg/actuation inhaler Inhale 1 Puff as instructed twice daily. albuterol HFA (PROVENTIL HFA, VENTOLIN HFA) 90 mcg/actuation inhaler Inhale 2 Puffs as instructed every 4 hours as needed for wheezing/shortness of breath. ramipril (ALTACE) 5 mg capsule Take 1 capsule by mouth once daily. Pt's [place] pcp lowered dose to 5 mg metoprolol succinate ER (TOPROL XL) 25 mg 24 hr tablet Take 1 tablet by mouth once rita (more content not included)... [facility] 04-12-2023 Instructions Aniyah Fletcher Mi - 04/12/2023 12:21 PM EDT BONE MINERAL DENSITY PATIENT INSTRUCTIONS ========= Bone mineral density testing measures the amount of calcium in certain parts of your bones. This information determines how strong your bones are. The test is used to detect osteoporosis, a disease in which the bone's mineral content and density are low, increasing a person's risk of fractures. The lumbar spine (lower back) and the hip are the skeletal sites usually examined. For the test, remember that: 1. You cannot take this test if you are . 2. Eat a normal diet on the day of the test. 3. Take your medications as you normally would. 4. DO NOT take calcium supplements (such as Tums) for 24 hours before the test. 5. On the day of the test, leave valuables (jewelry or credit cards) at home. 6. The test should be performed prior to oral, rectal or IV contrast studies, or at least 7 days after any of these studies. For the test, you may be asked to wear a hospital gown. You will lie on your back, on a padded table, in a comfortable position. Generally, you can resume your usual activities immediately. documented in this encounter [facility] 04-12-2023 History of Presen t illness Narrative Chief Complaint Patient presents with: 6 Month Exam HPI Debby Mercado is a 87 year old female who presents here today for 6 month follow up. Follows with a provider in [place] while there from Sep-January. Has an advanced directive. No bowel, Gi, or urinary issues. Uses probiotic and fiber supplement daily to keep bowels moving, has chronic constipation. Tries to avoid dairy and popcorn due to it causing stools to become too loose. SOB: allergy induced cough and SOB. Using Dulera inhaler daily and Albuterol inhaler prn. Thyroid: Taking Synthroid 75 mcg daily. Denies missing any dosages. Follows with Dr. Padilla for the thyroid nodules. Lipid: Taking Crestor 5 mg every other day along with an 81 mg Aspirin every other day. She does exercise with a aed trainer while in [place] as well as walking and biking. She tries to watch diet. Memory: No changes. HTN: Follows with Dr. Forrester, Cardio with [facility]. Denies any issues with chest pains, dizziness, or unusual SOB. Checking BP at home with readings running around 120/70. Taking Altace 5 mg daily, Amiodarone 100 mg daily and Metoprolol 25 mg daily. RA: Following with Rheum, Dr. Benites who prescribes Plaquenil 200 mg daily. Depression: Has had some increased issues with crying and feeling down, little interest in things she enjoys. Stated she used Prozac in the past and did counseling which helped. She stated that this happened to her in a long time ago, stated her son and about 10 years after she started having some issues with depression, crying all the time so that is when Dr. Shaw put her on the Prozac. The after effects of getting off the Prozac were difficulty for her. She stated that her 8 years ago and recently her really good friend . She denies any SI/HI. She wants to start on medication but she wants something really mild. She is trying to manage the depression, is making friends with other ladies. She does not feel that she would benefit from counseling. She is also still getting out to walk and stay active with other activities. Depression screening tool completed and reviewed. Based on score and interview, patient does have mild depression; will start medication. Past medical history, appointments, medications, allergies reviewed. Previous Medical History PAST MEDICAL HISTORY Diagnosis Date Asthma Depressive disorder, not elsewhere classified Esophageal reflux Generalized osteoarthrosis, unspecified site GERD (gastroesophageal reflux disease) Hiatal hernia 04/19/2019 Other and unspecified hyperlipidemia Rheumatoid arthritis (HCC) Unspecified essential hypertension Unspecified hypothyroidism Previous Surgical History PAST SURGICAL HISTORY Procedure Laterality Date APPENDECTOMY 1952 ARTHRP KNE CONDYLE&PLATU MEDIAL&LAT COMPARTMENTS Knee replacement, total, bilateral CATARACT SURGERY, COMPLEX 2018 COLONOSCOPY 11-04-05 Yulia Rudolph MD/[place]-repeat in COLONOSCOPY 2017 [facility] - reported as negative ESOPHAGOGASTRODUODENOSCOPY TRANSORAL DIAGNOSTIC 04/19/2019 EGD LAPS RPR PARAESPHGL HRNA INCL FUNDPLSTY W/O MESH 08/17/2019 Dr. Paniagua LAPS SURG CHOLECYSTECTOMY W/CHOLANGIOGRAPHY 04-17-08 PAST SURGICAL HISTORY OF N/A 07/12/2019 EGD w/biopsy and Esophageal Manometry REVJ TOT KNEE ARTHRP FEM&ENTIRE TIBIAL COMPONE 05/2008 Knee replacement, revision-right knee redo REVJ TOTAL KNEE ARTHRP W/WO ALGRFT 1 COMPONENT 2011 Left knee RPR UMBILICAL HERNIA < 5 YRS REDUCIBLE [id number] Hernia repair, umbilical VAGINAL HYSTERECTOMY UTERUS 250 GM/< [id number] R ooph and anterior repair Family History FAMILY HISTORY Problem Relation Age of Onset Diabetes Mother Coronary Artery Disease Father Cancer Father stomach cancer Developmental problem Sister multiple sclerosis Cancer Sister Patient Allergies ALLERGIES Allergen Reactions Lipitor [Atorvastat* Other: See Comments Muscle aches Zocor [Simvastatin] Current Medications Current Outpatient Medications on File Prior to Visit Medication Sig omeprazole (PRILOSEC) 20 mg capsule Take 1 capsule by mouth daily before breakfast. 1/2 hr before meal. Getting OTC levothyroxine (SYNTHROID) 75 mcg tablet Take 1 tablet by mouth once daily. Take on empty stomach. For Thyroid mometasone-formoterol (DULERA) 100-5 mcg/actuation inhaler Inhale 1 Puff as instructed twice daily. albuterol HFA (PROVENTIL HFA, VENTOLIN HFA) 90 mcg/actuation inhaler Inhale 2 Puffs as instructed every 4 hours as needed for wheezing/shortness of breath. ramipril (ALTACE) 5 mg capsule Take 1 capsule by mouth once daily. Pt's [place] p[place] lowered dose to 5 mg metoprolol succinate ER (TOPROL XL) 25 mg 24 hr tablet Take 1 tablet by mouth once daily. rosuvastatin (CRESTOR) 5 mg tablet Take 5 mg by mouth. Taking 1 pill every other day-Dr. Forrester aspirin, enteric coated (ASPIRIN, ENTERIC COATED) 81 mg EC tablet Take by mouth. amiodarone (PACERONE) 100 mg tablet Take 1 tablet by mouth once daily. Dr. Forrester hydrOXYchloroQUINE (PLAQUENIL) 200 mg tablet Take 1 tablet by mouth once daily. MULTIVITAMIN TAB Take one(1) tablet daily. SANTI-MAG-VIT [id number] ORAL SUSP Take one(1) tablet daily. No current facility-administered medications on file prior to visit. Social History Social History Tobacco Use Smoking status: Never Smokeless tobacco: Never Vaping Use Vaping Use: Never used Substance Use Topics Alcohol use: Yes Comment: occasionally Drug use: No EXAM: BP 126/70 Pulse 70 Resp 16 Wt 74.3 kg (163 lb 11.2 oz) BMI 28.10 kg/m General Appearance: Well appearing, alert, in no acute distress, well-hydrated, well nourished.. Lungs: Lungs clear to auscultation. No wheezing, rhonchi, rales.. Heart: RRR without murmur, gallop, or rubs. No ectopy. Health Maintenance List ADVANCE DIRECTIVE DISCUSSION due on 10/25/2022 DEPRESSION ASSESSMENT Never done DIABETES SCREEN due on 04/05/2026 DTAP,TDAP,TD(2 - Td or Tdap) due on 07/12/2028 BONE DENSITY Completed INFLUENZA Completed SHINGRIX VACCINE Completed COVID-19 VACCINE Completed PNEUMOCOCCAL: 65+ Completed Data reviewed Appointment on 04/05/2023 Component Date Value Cholesterol, Total 04/05/2023 171 Triglyceride 04/05/2023 143 HDL Cholesterol 04/05/2023 67 Non HDL Cholesterol 04/05/2023 104 Fasting Time 04/05/2023 12 VLDL Cholesterol 04/05/2023 29 TC:HDL Ratio 04/05/2023 2.55 LDL Cholesterol 04/05/2023 75 LDL:HDL Ratio 04/05/2023 1.12 Protein, Total 04/05/2023 7.0 Albumin 04/05/2023 4.5 Calcium, Total 04/05/2023 9.5 Bilirubin, Total 04/05/2023 0.8 Alkaline Phosphatase 04/05/2023 49 AST 04/05/2023 30 ALT 04/05/2023 26 Glucose 04/05/2023 90 BUN 04/05/2023 14 Creatinine 04/05/2023 0.80 Sodium 04/05/2023 140 Potassium 04/05/2023 4.2 Chloride 04/05/2023 104 CO2 04/05/2023 25 Anion Gap 04/05/2023 11 Estimated Glomerular Kaleb* 04/05/2023 72 WBC 04/05/2023 6.43 RBC 04/05/2023 4.79 Hemoglobin 04/05/2023 16.2 (A) Hematocrit 04/05/2023 48.6 (A) MCV 04/05/2023 101.5 (A) MCH 04/05/2023 33.8 MCHC 04/05/2023 33.3 RDW-CV 04/05/2023 12.0 Platelet Count 04/05/2023 227 MPV 04/05/2023 11.8 Neutrophils % 04/05/2023 48.4 Abs Neut 04/05/2023 3.11 Lymphocytes % 04/05/2023 34.7 Abs Lymph 04/05/2023 2.23 Monocytes % 04/05/2023 11.0 Abs Rolette 04/05/2023 0.71 Eosinophils % 04/05/2023 4.2 Abs Eosin 04/05/2023 0.27 Basophils % 04/05/2023 1.4 Abs Baso 04/05/2023 0.09 Immature Granulocytes % 04/05/2023 0.3 Abs Immature Gran 04/05/2023 <0.03 NRBC 04/05/2023 0.0 Absolute nRBC 04/05/2023 <0.01 Diff Type 04/05/2023 Auto TSH 04/05/2023 1.730 ASSESSMENT/PLAN: 1. Essential hypertension - ICD9: 401.9, ICD10: I10 (primary diagnosis) - Controlled - Continue current medications - Recommend home blood pressure monitoring, to bring results to next visit - Encouraged sodium restriction, DASH or Mediterranean diet - Recommend regular aerobic exercise 2. SVT (supraventricular tachycardia) (HCC) - ICD9: 427.89, ICD10: I47.1 Continue current medications. Continue with Dr. Forrester, Manager Medical Affairs 3. Gastroesophageal reflux disease, unspecified whether esophagitis present - ICD9: 530.81, ICD10: K21.9 - Continue current medications. 4. Rheumatoid arthritis of multiple sites with negative rheumatoid factor (HCC) - ICD9: 714.0, ICD10: M06.09 Continue current medications. Continue with Rheum 5. 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 BMI 28.10 kg/(m^2) 6. Depression, unspecified depression type - ICD9: 311, ICD10: F32.A Start zoloft 25 mg daily Recommend counseling 7. Hypothyroidism, unspecified type - ICD9: 244.9, ICD10: E03.9 - Instructed patient on importance of taking on an empty stomach either first thing in the morning or at bedtime. Continue current medications. 8. Encounter for screening mammogram for malignant neoplasm of breast - ICD9: V76.12, ICD10: Z12.31 - Encouraged monthly BSE - Follow up for annual exam in one year. 9. Encounter for screening for osteoporosis - ICD9: V82.81, ICD10: Z13.820 BMD test ordered Will mail copy of BMD and Mammogram results to pt home. Copy of today's labs faxed to Dr. Forrester's office. Follow up 1 month on Zoloft. I agree with the Chief Complaint, ROS, and Past Histories independently gathered by the clinical decision support manager and the remaining scribed note accurately describes my personal service to the patient. Medical Decision Making: Problems: Moderate: 2+ stable chronic illnesses and 1+ chronic illnesses with change Data: Unique test result(s) reviewed: 3+ Unique test(s) ordered: 3+ Risk: Moderate: Drug management Medical Decision Making Level: 4 - Moderate Tessy Otero MD The documentation for this note was completed by Aniyah Fletcher Ma acting as scribe for Tessy Otero MD. April 12, 2023 11:54 AM. Aniyah Fletcher Ma documented in this encounter [facility] 10-05-2022 Note HNO ID: [id number] Author: Tessy Otero MD Service: ? Author Type: Physician Type: Progress Notes Filed: 10/05/2022 2:47 PM Note Text: Chief Complaint Patient presents with: 6 Month Exam HPI Debby Mercado is a 87 year old female who presents here today for 6 month follow up. Follows with a provider in [place] as well. Here with daughter who lives 2 miles away. Is going to [facility] end of the month and not coming back till the snow is done. Her daughter is going to be going down with her. No bowel, Gi, or urinary issues. Has issues with chronic constipation which she controls with fiber supplement and probiotic daily. Does get loose bowels if she has too much dairy or eats popcorn. HTN: Checking BP occ at home with readings 120/70. No chest pains, dizziness, or SOB. Taking Altace 5 mg daily, Amiodarone 100 mg once daily and Metoprolol 25 mg daily. Follows with Cardio, Dr. Forrester. Lipid: Tries to watch diet. Exercises with a aed trainer both in [place] and [place] every MWF. Walks on the other days or rides bike. Is on Crestor 5 mg every other day and 81 mg Aspirin a day. Her aed trainer made her do exercises on getting up and down from sitting without using hands, goes up stairs, stretches, works on balance exercises, the aed trainer changes it each day she goes. She walks 7,000+ steps a day. Uses an exercise machine for 30 minutes before her aed trainer arrives. Memory: Her daughter that is with her today does not feel that her memory is really an issues, although the oldest daughter is very concerned about her memory because pt asked about [place] plans when her daughter had already spoken to her about it prior. Daughter here today states she doesn't seem to forget anything more than any other 87 year old person would forget. She doesn't get lost when driving, she doesn't forget to turn stove off but she often goes out to eat since she lives alone, she knows who the President is. She has not had any mood changes, sleeping well, doing her normal routine. Thyroid: Taking Synthroid 75 mcg daily. No missed dosages. Dr. Padilla follows her thyroid nodules. RA: Follows with Jorge Luis Jauregui. Taking Plaquenil 200 mg daily. Uses Dulera inhaler daily and Albuterol inhaler prn. Uses them for cough and allergy induced SOB. Started on the Albuterol by Dr. Padilla. Past medical history, appointments, medications, allergies reviewed. Previous Medical History PAST MEDICAL HISTORY Diagnosis Date Asthma Depressive disorder, not elsewhere classified Esophageal reflux Generalized osteoarthrosis, unspecified site GERD (gastroesophageal reflux disease) Hiatal hernia 04/19/2019 Other and unspecified hyperlipidemia Rheumatoid arthritis (HCC) Unspecified essential hypertension Unspecified hypothyroidism Previous Surgical History PAST SURGICAL HISTORY Procedure Laterality Date APPENDECTOMY 1952 ARTHRP KNE CONDYLEANDPLATU MEDIALANDLAT COMPARTMENTS Knee replacement, total, bilateral CATARACT SURGERY, COMPLEX 2018 COLONOSCOPY 11-04-05 Yulia Rudolph MD/[place]-repeat in COLONOSCOPY 2017 [facility] - reported as negative ESOPHAGOGASTRODUODENOSCOPY TRANSORAL DIAGNOSTIC 04/19/2019 EGD LAPS RPR PARAESPHGL HRNA INCL FUNDPLSTY W/O MESH 08/17/2019 Dr. Arcelia TREJO SURG CHOLECYSTECTOMY W/CHOLANGIOGRAPHY 04-17-08 PAST SURGICAL HISTORY OF N/A 07/12/2019 EGD w/biopsy and Esophageal Manometry REVJ TOT KNEE ARTHRP FEMANDENTIRE TIBIAL COMPONE 05/2008 Knee replacement, revision-right knee redo REVJ TOTAL KNEE ARTHRP W/WO ALGRFT 1 COMPONENT 2011 Left knee RPR UMBILICAL HERNIA < 5 YRS REDUCIBLE [id number] Hernia repair, umbilical VAGINAL HYSTERECTOMY UTERUS 250 GM/< [id number] R ooph and anterior repair Family History FAMILY HISTORY Problem Relation Age of Onset Diabetes Mother Coronary Artery Disease Father Cancer Father stomach cancer Developmental problem Sister multiple sclerosis Cancer Sister Patient Allergies ALLERGIES Allergen Reactions Lipitor [Atorvastat* Other: See Comments Muscle aches Zocor [Simvastatin] Current Medications Current Outpatient Medications on File Prior to Visit Medication Sig ramipril (ALTACE) 5 mg capsule Take 1 capsule by mouth once daily. Pt's [place] p[place] lowered dose to 5 mg metoprolol succinate ER (TOPROL XL) 25 mg 24 hr tablet Take 1 tablet by mouth once daily. rosuvastatin (CRESTOR) 5 mg tablet Take 5 mg by mouth. Taking 1 pill every other day-Dr. Forrester aspirin, enteric coated (ASPIRIN, ENTERIC COATED) 81 mg EC tablet Take by mouth. amiodarone (PACERONE) 100 mg tablet Take 1 tablet by mouth once daily. Dr. Forrester levothyroxine (SYNTHROID) 75 mcg tablet Take 1 tablet by mouth once daily. Take on empty stomach. For Thyroid hydrOXYchloroQUINE (PLAQUENIL) 200 mg tablet Take 1 tablet by mouth once daily. mometasone-formoterol (DULERA) 100-5 mcg/actuation inhaler Inhale 1 Puff as instructed twice daily. (more content not included)... [facility] 10-05-2022 History of Presen t illness Narrative Chief Complaint Patient presents with: 6 Month Exam HPI Debby Mercado is a 87 year old female who presents here today for 6 month follow up. Follows with a provider in [place] as well. Here with daughter who lives 2 miles away. Is going to [facility] end of the month and not coming back till the snow is done. Her daughter is going to be going down with her. No bowel, Gi, or urinary issues. Has issues with chronic constipation which she controls with fiber supplement and probiotic daily. Does get loose bowels if she has too much dairy or eats popcorn. HTN: Checking BP occ at home with readings 120/70. No chest pains, dizziness, or SOB. Taking Altace 5 mg daily, Amiodarone 100 mg once daily and Metoprolol 25 mg daily. Follows with Cardio, Dr. Forrester. Lipid: Tries to watch diet. Exercises with a aed trainer both in [place] every MWF. Walks on the other days or rides bike. Is on Crestor 5 mg every other day and 81 mg Aspirin a day. Her aed trainer made her do exercises on getting up and down from sitting without using hands, goes up stairs, stretches, works on balance exercises, the aed trainer changes it each day she goes. She walks 7,000+ steps a day. Uses an exercise machine for 30 minutes before her aed trainer arrives. Memory: Her daughter that is with her today does not feel that her memory is really an issues, although the oldest daughter is very concerned about her memory because pt asked about [place] plans when her daughter had already spoken to her about it prior. Daughter here today states she doesn't seem to forget anything more than any other 87 year old person would forget. She doesn't get lost when driving, she doesn't forget to turn stove off but she often goes out to eat since she lives alone, she knows who the President is. She has not had any mood changes, sleeping well, doing her normal routine. Thyroid: Taking Synthroid 75 mcg daily. No missed dosages. Dr. Padilla follows her thyroid nodules. RA: Follows with Jorge Luis Jauregui. Taking Plaquenil 200 mg daily. Uses Dulera inhaler daily and Albuterol inhaler prn. Uses them for cough and allergy induced SOB. Started on the Albuterol by Dr. Padilla. Past medical history, appointments, medications, allergies reviewed. Previous Medical History PAST MEDICAL HISTORY Diagnosis Date Asthma Depressive disorder, not elsewhere classified Esophageal reflux Generalized osteoarthrosis, unspecified site GERD (gastroesophageal reflux disease) Hiatal hernia 04/19/2019 Other and unspecified hyperlipidemia Rheumatoid arthritis (HCC) Unspecified essential hypertension Unspecified hypothyroidism Previous Surgical History PAST SURGICAL HISTORY Procedure Laterality Date APPENDECTOMY 1952 ARTHRP KNE CONDYLE&PLATU MEDIAL&LAT COMPARTMENTS Knee replacement, total, bilateral CATARACT SURGERY, COMPLEX 2018 COLONOSCOPY 11-04-05 Yulia Rudolph [place]-repeat in COLONOSCOPY 2017 [facility] - reported as negative ESOPHAGOGASTRODUODENOSCOPY TRANSORAL DIAGNOSTIC 04/19/2019 EGD LAPS RPR PARAESPHGL HRNA INCL FUNDPLSTY W/O MESH 08/17/2019 Dr. Arcelia TREJO SURG CHOLECYSTECTOMY W/CHOLANGIOGRAPHY 04-17-08 PAST SURGICAL HISTORY OF N/A 07/12/2019 EGD w/biopsy and Esophageal Manometry REVJ TOT KNEE ARTHRP FEM&ENTIRE TIBIAL COMPONE 05/2008 Knee replacement, revision-right knee redo REVJ TOTAL KNEE ARTHRP W/WO ALGRFT 1 COMPONENT 2011 Left knee RPR UMBILICAL HERNIA < 5 YRS REDUCIBLE [id number] Hernia repair, umbilical VAGINAL HYSTERECTOMY UTERUS 250 GM/< [id number] R ooph and anterior repair Family History FAMILY HISTORY Problem Relation Age of Onset Diabetes Mother Coronary Artery Disease Father Cancer Father stomach cancer Developmental problem Sister multiple sclerosis Cancer Sister Patient Allergies ALLERGIES Allergen Reactions Lipitor [Atorvastat* Other: See Comments Muscle aches Zocor [Simvastatin] Current Medications Current Outpatient Medications on File Prior to Visit Medication Sig ramipril (ALTACE) 5 mg capsule Take 1 capsule by mouth once daily. Pt[place] p[place] lowered dose to 5 mg metoprolol succinate ER (TOPROL XL) 25 mg 24 hr tablet Take 1 tablet by mouth once daily. rosuvastatin (CRESTOR) 5 mg tablet Take 5 mg by mouth. Taking 1 pill every other day-Dr. Forrester aspirin, enteric coated (ASPIRIN, ENTERIC COATED) 81 mg EC tablet Take by mouth. amiodarone (PACERONE) 100 mg tablet Take 1 tablet by mouth once daily. Dr. Forrester levothyroxine (SYNTHROID) 75 mcg tablet Take 1 tablet by mouth once daily. Take on empty stomach. For Thyroid hydrOXYchloroQUINE (PLAQUENIL) 200 mg tablet Take 1 tablet by mouth once daily. mometasone-formoterol (DULERA) 100-5 mcg/actuation inhaler Inhale 1 Puff as instructed twice daily. MULTIVITAMIN TAB Take one(1) tablet daily. SANTI-MAG-VIT [id number] ORAL SUSP Take one(1) tablet daily. No current facility-administered medications on file prior to visit. Social History Social History Tobacco Use Smoking status: Never Smokeless tobacco: Never Vaping Use Vaping Use: Never used Substance Use Topics Alcohol use: Yes Comment: occasionally Drug use: No Review of Symptoms EXAM: BP 126/74 Pulse 74 Resp 16 Wt 74 kg (163 lb 3.2 oz) BMI 28.01 kg/m General Appearance: Well appearing, alert, in no acute distress, well-hydrated, well nourished. and Overweight. Neck: Supple, no adenopathy; thyroid symmetric, normal size. Lungs: Lungs clear to auscultation. No wheezing, rhonchi, rales.. Heart: RRR without murmur, gallop, or rubs. No ectopy. Health Maintenance List COVID-19 VACCINE(4 - Booster for Moderna series) due on 10/19/2021 DEPRESSION ASSESSMENT Never done DIABETES SCREEN due on 03/02/2025 DTAP,TDAP,TD(2 - Td or Tdap) due on 07/12/2028 BONE DENSITY Completed INFLUENZA Completed ADVANCE DIRECTIVE DISCUSSION Completed SHINGRIX VACCINE Completed PNEUMOCOCCAL: 65+ Completed Data reviewed Appointment on 09/29/2022 Component Date Value Protein, Total 09/29/2022 7.5 Albumin 09/29/2022 4.6 Calcium, Total 09/29/2022 9.7 Bilirubin, Total 09/29/2022 0.5 Alkaline Phosphatase 09/29/2022 55 AST 09/29/2022 32 ALT 09/29/2022 28 Glucose 09/29/2022 76 BUN 09/29/2022 15 Creatinine 09/29/2022 0.81 Sodium 09/29/2022 142 Potassium 09/29/2022 4.1 Chloride 09/29/2022 105 CO2 09/29/2022 25 Anion Gap 09/29/2022 12 Estimated Glomerular Kaleb* 09/29/2022 71 Cholesterol, Total 09/29/2022 203 (A) Triglyceride 09/29/2022 112 HDL Cholesterol 09/29/2022 72 Non HDL Cholesterol 09/29/2022 131 (A) Fasting Time 09/29/2022 12 VLDL Cholesterol 09/29/2022 22 TC:HDL Ratio 09/29/2022 2.82 LDL Cholesterol 09/29/2022 109 (A) LDL:HDL Ratio 09/29/2022 1.51 WBC 09/29/2022 7.00 RBC 09/29/2022 4.74 Hemoglobin 09/29/2022 16.0 (A) Hematocrit 09/29/2022 47.7 (A) MCV 09/29/2022 100.6 (A) MCH 09/29/2022 33.8 MCHC 09/29/2022 33.5 RDW-CV 09/29/2022 12.3 Platelet Count 09/29/2022 216 MPV 09/29/2022 11.6 Neut% 09/29/2022 44.6 Abs Neut 09/29/2022 3.12 Lymph% 09/29/2022 39.3 Abs Lymph 09/29/2022 2.75 Rolette% 09/29/2022 11.0 Abs Rolette 09/29/2022 0.77 Eosin% 09/29/2022 3.7 Abs Eosin 09/29/2022 0.26 Baso% 09/29/2022 1.3 Abs Baso 09/29/2022 0.09 Immature Gran % 09/29/2022 0.1 Abs Immature Gran 09/29/2022 <0.03 NRBC 09/29/2022 0.0 Absolute nRBC 09/29/2022 <0.01 Diff Type 09/29/2022 Auto TSH 09/29/2022 2.620 ASSESSMENT/PLAN: 1. Essential hypertension - ICD9: 401.9, ICD10: I10 (primary diagnosis) - good control - Continue current medication(s) - Recommended regular aerobic exercise. - Recommend home blood pressure monitoring, to bring results in on next visit - Goal of BP <130/80 2. Hypothyroidism, unspecified type - ICD9: 244.9, ICD10: E03.9 - Instructed patient on importance of taking on an empty stomach either first thing in the morning or at bedtime. Continue current medications. - LEVOTHYROXINE 75 MCG TABLET 3. Rheumatoid arthritis of multiple sites with negative rheumatoid factor (HCC) - ICD9: 714.0, ICD10: M06.09 Continue current medications. Continue with Dr. Benites, [place] [facility] 4. Disorder of lipoprotein and lipid metabolism - ICD9: 272.9, ICD10: E78.9 - good control - Continue current medication. - Encouraged following a low fat, low cholesterol diet. - Discussed the benefits of regular aerobic exercise and weight loss. Follow up 6 months with fasting labs prior. I agree with the Chief Complaint, ROS, and Past Histories independently gathered by the clinical decision support manager and the remaining scribed note accurately describes my personal service to the patient. Medical Decision Making: Problems: Moderate: 2+ stable chronic illnesses Data: Unique test result(s) reviewed: 3+ Risk: Moderate: Drug management Medical Decision Making Level: 4 - Moderate Tessy Otero MD The documentation for this note was completed by Aniyah Fletcher Ma acting as scribe for Tessy Otero MD. October 05, 2022 1:59 PM. Aniyah Fletcher Ma documented in this encounter [facility] 07-09-2022 History of Presen t illness Narrative Radiology Service Progress Note PATIENT NAME: Debby Mercado DATE OF SERVICE: July 09, 2022 TIME: 10:03 AM PATIENT IDENTITY VERIFICATION COMPLETED USING TWO (2) IDENTIFIERS: Name and Date of confirmed by patient verbally. FALL SCREENING: Has the patient had 2 falls in the last year or 1 fall with injury or currently using an Ambulatory Assistive Device (Walker, Cane, Wheelchair, Crutches, etc.)? No PATIENT GENDER DATA: Female. status: : No status: NO. PATIENT RELEVANT IMPLANT DATA REVIEWED: Not Applicable RADIOLOGY DEPARTMENT: Mammography PERIPHERAL IV DATA: Not applicable SIGNED BY: RT Isatu(R) July 09, 2022 10:03 AM documented in this encounter [facility] 06-15-2022 Miscellaneous Notes 1 st attempt Please contact pt to schedule mammogram. Thanks, Yahaira Manjarrez Ma Mammogram ordered Tessy Otero MD Patient would like mammogram order, routine. documented in this encounter [facility] 05-28-2022 Miscellaneous Notes Patient daughter notified of results, verbalizes understanding of instructions. Leanne Sears LPN Can you please call patient's daughter and let her know that a letter has been sent to [facility] pharmacy. If there are any further questions please let me know. Thank you. Andrew Cancino APRN.CNP Daughter, Dorcas, reports [facility] will not fill the Rx for paxlovid until they get in writing from Wilma Cancino Np, that it is ok for patient to hold the amiodarone and crestor for 5 days while taking the paxlovid. Daughter reports Dr. Forrester's office did call her and told her it is ok to hold the amiodarone for 5 days while taking paxlovid. Please call daughter to let her know note of approval has been sent to [facility]. Opal from Dr Forrester office calling patient daughter called and said mother is taking Paxlovid rx for 5 days. Was told to hold her Crestor and Amiodarone while taking the Paxlovid. She will check with Dr Forrester and notify daughter if any issues. documented in this encounter [facility] 05-25-2022 Miscellaneous Notes The following approved medication requests have been transmitted electronically. Pending Prescriptions Disp Refills RAMIPRIL 5 MG CAPSULE 90 capsule 3 Sig: TAKE 1 CAPSULE BY MOUTH ONCE DAILY. PT'S [place] PCP LOWERED DOSE TO 5 MG YOSVANY: Yes Nolan Sharpe APRN.CNP Patient phones requesting refills as follows: Pending Prescriptions Disp Refills RAMIPRIL 5 MG CAPSULE 90 capsule 3 Sig: TAKE 1 CAPSULE BY MOUTH ONCE DAILY. PT'S [place] PCP LOWERED DOSE TO 5 MG YOSVANY: Yes MING-03/04/22 Labs-03/02/22 NOV-08/28/22 med filled 06/16/21 Please review and advise. Leanne Sears LPN documented in this encounter [facility] 03-06-2022 Miscellaneous Notes Spoke with [facility] pharmacy, Shringrix vaccines given 03/11/2020 and 05/17/2020. Chart updated. Aniyah Fletcher Ma Pt unsure when she received both of her Shingrix vaccines and only one is on file within chart. Faxed [facility], requesting additional information to update her chart. Pt asking once office knows to update her by calling her. Yahaira Manjarrez Ma documented in this encounter [facility] 03-04-2022 History of Presen t illness Narrative Chief Complaint Patient presents with: F/U 6 Month HPI Debby Julienne Mercado is a 86 year old female who presents here today for a 6 month follow up. Pt here today for a 6 month follow up. Follows with PCP (Dr. Vandana Milligan) when she goes to [place] during the winter months. Generally stays in [place] from October to January. Just came back, few days ago. Looking forward to a trip to [place] with her brother and his . GI/Uro - Denies any change in stomach or bowel issues. Reports chronic constipation, has tried stool softeners but was not real happy with the results. Doing well at present time with fiber supplement and daily probiotic. Denies any urinary issues. Memory/Neuro - Has been mentioned in the past by family members such as daughter, her and her other daughter some changes over the few months prior to her last visit. They noticed forgetfulness and frustration. This was not real worrisome, but just wanted to mention this. Today, she denies this getting any worse and overall feels she's about the same. She is getting more comfortable with her being gone. HTN - Checks BP at home occasionally, once in a while. Denies any chest pain or sob. Notes dizziness with getting up too quickly. On current regimen of Altace 5 mg once daily and Metoprolol 25 mg once daily. Follows with Dr. Forrester with [facility]. They've added to her regimen Amiodarone 100 mg once daily, Aspirin 81 mg daily and Crestor 5 mg every other day. Lipids - Tries to watch her diet, notes she gained a little weight while in [place], but will try to get this off. Exercises with a [employer] MW in [place] and [place]. On days off she will either ride stationary bike or walk. Tracks her walking, while in [place] she averaged between 10-12K steps. On current regimen of Crestor 5 mg 1 tab po every other day. Denies any issues with medication. Started by Cardiology. Thyroid - Stable on her current regimen of Synthroid 75 mcg once daily. Denies any missed dosages. Dr. Padilla follows with thyroid nodules routinely. He notified her that she needs to f/u anymore due to US being stable. Stated that after a certain time they stop growing. RA - Routine f/u with Dr. Benites. Pt on current regimen of Plaquenil 200 mg once daily. No longer taking Methotrexate and Folic Acid, this was d/c. HM - Covid booster - may wait until later in the year, on the advice of her MD in [place]. Did have reaction to first booster. Mammogram - Jun, will call to schedule. Shingles vaccine 10/26, pt states that she received at local pharmacy. [facility] contacted to update office. Once updated, notify pt. Pt has Adv Dir scanned into chart. Past medical history, appointments, medications, allergies reviewed. Previous Medical History PAST MEDICAL HISTORY Diagnosis Date Asthma Depressive disorder, not elsewhere classified Esophageal reflux Generalized osteoarthrosis, unspecified site GERD (gastroesophageal reflux disease) Hiatal hernia 04/19/2019 Other and unspecified hyperlipidemia Rheumatoid arthritis (HCC) Unspecified essential hypertension Unspecified hypothyroidism Previous Surgical History PAST SURGICAL HISTORY Procedure Laterality Date APPENDECTOMY 1952 CATARACT SURGERY, COMPLEX 2018 COLONOSCOPY 11-04-05 Yulia Rudolph MD/[place]-repeat in COLONOSCOPY 2017 [facility] - reported as negative EGD W/O OR W/BRUSH/WASH 04/19/2019 EGD LAP CHOLECYSTECT/CHOLANGIOGRAPHY 04-17-08 LAPS RPR PARAESPHGL HRNA INCL FUNDPLSTY W/O MESH 08/17/2019 Dr. Painagua PAST SURGICAL HISTORY OF N/A 07/12/2019 EGD w/biopsy and Esophageal Manometry REPAIR UMBILICAL ARNALDO,<5Y/O,REDUC [id number] Hernia repair, umbilical REVISE KNEE JOINT REPLACE,1 PART 2011 Left knee REVISE KNEE JOINT REPLACE,ALL PARTS 05/2008 Knee replacement, revision-right knee redo TOTAL KNEE REPLACEMENT Knee replacement, total, bilateral VAGINAL HYSTERECTOMY [id number] R ooph and anterior repair Family History FAMILY HISTORY Problem Relation Age of Onset Diabetes Mother Coronary Artery Disease Father Cancer Father stomach cancer Developmental problem Sister multiple sclerosis Cancer Sister Patient Allergies ALLERGIES Allergen Reactions Lipitor [Atorvastat* Other: See Comments Muscle aches Zocor [Simvastatin] Current Medications Current Outpatient Medications on File Prior to Visit Medication Sig Lygizxdqhinncqr-Zovnngsdf-DH (BROMFED DM) 2-30-10 mg/5 mL syrup Take 5 mL by mouth four times daily as needed. rosuvastatin (CRESTOR) 5 mg tablet Take 5 mg by mouth. Taking 1 pill every other day-Dr. Forrester aspirin, enteric coated (ASPIRIN, ENTERIC COATED) 81 mg EC tablet Take by mouth. amiodarone (PACERONE) 100 mg tablet Take 1 tablet by mouth once daily. Dr. Forrester levothyroxine (SYNTHROID) 75 mcg tablet Take 1 tablet by mouth once daily. Take on empty stomach. For Thyroid metoprolol succinate ER (TOPROL XL) 25 mg 24 hr tablet Take 1 tablet by mouth once daily. ramipril (ALTACE) 5 mg capsule Take 1 capsule by mouth once daily. Pt's [place] lowered dose to 5 mg hydrOXYchloroQUINE (PLAQUENIL) 200 mg tablet Take 1 tablet by mouth once daily. methotrexate 2.5 mg tablet Take 4 tablets every Wednesday. mometasone-formoterol (DULERA) 100-5 mcg/actuation inhaler Inhale 1 Puff as instructed twice daily. MULTIVITAMIN TAB Take one(1) tablet daily. SANTI-MAG-VIT X4-PLYFTJYDIFDT-SX ORAL SUSP Take one(1) tablet daily. No current facility-administered medications on file prior to visit. Social History Social History Tobacco Use Smoking status: Never Smoker Smokeless tobacco: Never Used Vaping Use Vaping Use: Never used Substance Use Topics Alcohol use: Yes Comment: occasionally Drug use: No EXAM: BP 126/78 (BP Site: Left Arm, BP Position: Sitting, BP Cuff Size: Regular Adult) Pulse 62 Resp 16 Wt 73 kg (161 lb) BMI 27.64 kg/m General Appearance: Well appearing, alert, in no acute distress, well-hydrated, well nourished.. Lungs: Lungs clear to auscultation. No wheezing, rhonchi, rales.. Heart: RRR without murmur, gallop, or rubs. No ectopy. Health Maintenance List COVID-19 VACCINE(1) Never done SHINGRIX VACCINE(3 of 3) due on 05/06/2020 ADVANCE DIRECTIVE DISCUSSION Never done DIABETES SCREEN due on 08/09/2024 DTAP,TDAP,TD(2 - Td or Tdap) due on 07/12/2028 BONE DENSITY Completed INFLUENZA Completed PNEUMOVAX AGE 65 AND OVER WITH 5YR LOOKBACK Completed MENINGOCOCCAL CONJUGATE Aged Out Data reviewed Appointment on 03/02/2022 Component Date Value Cholesterol, Total 03/02/2022 172 Triglyceride 03/02/2022 126 HDL Cholesterol 03/02/2022 72 Non HDL Cholesterol 03/02/2022 100 Fasting Time 03/02/2022 13 VLDL Cholesterol 03/02/2022 25 TC:HDL Ratio 03/02/2022 2.39 LDL Cholesterol 03/02/2022 75 LDL:HDL Ratio 03/02/2022 1.04 Protein, Total 03/02/2022 7.5 Albumin 03/02/2022 4.6 Calcium, Total 03/02/2022 9.6 Bilirubin, Total 03/02/2022 0.6 Alkaline Phosphatase 03/02/2022 54 AST 03/02/2022 40 (A) ALT 03/02/2022 29 Glucose 03/02/2022 90 BUN 03/02/2022 12 Creatinine 03/02/2022 0.79 Sodium 03/02/2022 139 Potassium 03/02/2022 4.6 Chloride 03/02/2022 103 CO2 03/02/2022 23 Anion Gap 03/02/2022 13 Estimated Glomerular Kaleb* 03/02/2022 74 TSH 03/02/2022 1.370 WBC 03/02/2022 6.55 RBC 03/02/2022 4.81 Hemoglobin 03/02/2022 16.2 (A) Hematocrit 03/02/2022 48.4 (A) MCV 03/02/2022 100.6 (A) MCH 03/02/2022 33.7 MCHC 03/02/2022 33.5 RDW-CV 03/02/2022 11.9 Platelet Count 03/02/2022 225 MPV 03/02/2022 10.9 Neut% 03/02/2022 51.4 Abs Neut 03/02/2022 3.37 Lymph% 03/02/2022 31.8 Abs Lymph 03/02/2022 2.08 Rolette% 03/02/2022 11.8 Abs Rolette 03/02/2022 0.77 Eosin% 03/02/2022 3.2 Abs Eosin 03/02/2022 0.21 Baso% 03/02/2022 1.5 Abs Baso 03/02/2022 0.10 Immature Gran % 03/02/2022 0.3 Abs Immature Gran 03/02/2022 <0.03 NRBC 03/02/2022 0.0 Absolute nRBC 03/02/2022 <0.01 Diff Type 03/02/2022 Auto ASSESSMENT/PLAN: 1. Essential hypertension - ICD9: 401.9, ICD10: I10 (primary diagnosis) - good control - Continue current medication(s) - Recommended regular aerobic exercise. - Recommend home blood pressure monitoring, to bring results in on next visit - Goal of BP <130/80 2. Hypothyroidism, unspecified type - ICD9: 244.9, ICD10: E03.9 - Instructed patient on importance of taking on an empty stomach either first thing in the morning or at bedtime. - Continue current medication regimen. 3. Hyperlipidemia, mixed - ICD9: 272.2, ICD10: E78.2 - good control - Continue current medication. - Encouraged following a low fat, low cholesterol diet. - Discussed the benefits of regular aerobic exercise and weight loss. 4. SVT (supraventricular tachycardia) (HCC) - ICD9: 427.89, ICD10: I47.1 - Stable - Continue current medication regimen. 5. Acquired hypothyroidism - ICD9: 244.9, ICD10: E03.9 - Instructed patient on importance of taking on an empty stomach either first thing in the morning or at bedtime. Stable - Continue current medication regimen. 6. Rheumatoid arthritis of multiple sites with negative rheumatoid factor (HCC) - ICD9: 714.0, ICD10: M06.09 - Stable - Continue current medication regimen. 6 mo f/u with labs I agree with the Chief Complaint, ROS, and Past Histories independently gathered by the clinical decision support manager and the remaining scribed note accurately describes my personal service to the patient. Medical Decision Making: Problems: Moderate: 2+ stable chronic illnesses Data: Unique test result(s) reviewed: 3+ Unique test(s) ordered: 3+ Risk: Moderate: Drug management Medical Decision Making Level: 4 - Moderate Tessy Otero MD The documentation for this note was completed by Yahaira Manjarrez Ma acting as scribe for Tessy Otero MD. March 04, 2022 12:52 PM. Yahaira Manjarrez Ma documented in this encounter [facility] documented as of this encounter (statuses as of 03/04/2022) [facility] History of Past illness Narrative* Problem Noted Date Resolved Date Hiatal hernia 08/17/2019 08/18/2019 Essential hypertension, benign 07/13/2006 0 11/10/2006 Overview: since 1999 Disorder of bone and cartilage, unspecified 03/200605/13/2009 Overview: BMD 03/25 Recurrent major depression in partial remission 05/15/2020 documented as of this encounter (statuses as of 03/06/2022) [facility] History of Past illness Narrative* Problem Noted Date Resolved Date Hiatal hernia 08/17/2019 08/18/2019 Essential hypertension, benign 07/13/2006 0 11/10/2006 Overview: since 1999 Disorder of bone and cartilage, unspecified 03/200605/13/2009 Overview: BMD 03/25 Recurrent major depression in partial remission 05/15/2020 documented as of this encounter (statuses as of 05/25/2022) [facility] History of Past illness Narrative* Problem Noted Date Resolved Date Hiatal hernia 08/17/2019 08/18/2019 Essential hypertension, benign 07/13/2006 0 11/10/2006 Overview: since 1999 Disorder of bone and cartilage, unspecified 06/0 03/200605/13/2009 Overview: BMD 6/01 Recurrent major depression in partial remission 05/15/2020 documented as of this encounter (statuses as of 06/17/2022) [facility] History of Past illness Narrative* Problem Noted Date Resolved Date Hiatal hernia 08/17/2019 08/18/2019 Essential hypertension, benign 07/13/2006 0 11/10/2006 Overview: since 1999 Disorder of bone and cartilage, unspecified 06/0 03/200605/13/2009 Overview: BMD 6/ Recurrent major depression in partial remission 05/15/2020 documented as of this encounter (statuses as of 07/10/2022) [facility] History of Past illness Narrative* Problem Noted Date Resolved Date Hiatal hernia 08/17/2019 08/18/2019 Essential hypertension, benign 07/13/2006 0 11/10/2006 Overview: since 1999 Disorder of bone and cartilage, unspecified 06/0 03/200605/13/2009 Overview: BMD 6/01 Recurrent major depression in partial remission 05/15/2020 documented as of this encounter (statuses as of 07/11/2022) [facility] History of Past illness Narrative* Problem Noted Date Resolved Date Hiatal hernia 08/17/2019 08/18/2019 Essential hypertension, benign 07/13/2006 0 11/10/2006 Overview: since 1999 Disorder of bone and cartilage, unspecified 06/0 03/200605/13/2009 Overview: BMD 6/01 Recurrent major depression in partial remission 05/15/2020 documented as of this encounter (statuses as of 10/05/2022) [facility] History of Past illness Narrative* Problem Noted Date Resolved Date Hiatal hernia 08/17/2019 08/18/2019 Essential hypertension, benign 07/13/2006 0 11/10/2006 Overview: since 1999 Disorder of bone and cartilage, unspecified 06/03/200605/13/2009 Overview: BMD 6/01 Recurrent major depression in partial remission 05/15/2020 documented as of this encounter (statuses as of 04/12/2023) [facility] History of Past illness Narrative* Problem Noted Date Diagnosed Date Resolved Date Hiatal hernia 08/17/2019 08/18/2019 Essential hypertension, benign 07/13/2006 11/10/2006 Overview: since 1999 Disorder of bone and cartilage, unspecified 03/30/2006 05/13/2009 Overview: BMD 6 Recurrent major depression i n partial remission 05/15/2020 documented as of this encounter (statuses as of 05/14/2023) [facility] History of Past illness Narrative* Problem Noted Date Diagnosed Date Resolved Date Hiatal hernia 08/17/2019 08/18/2019 Essential hypertension, benign 07/13/2006 11/10/2006 Overview: since 1999 Disorder of bone and cartilage, unspecified 03/30/2006 05/13/2009 Overview: BMD 6/ Recurrent major depression i n partial remission 05/15/2020 documented as of this encounter (statuses as of 06/11/2023) [facility] History of Past illness Narrative* Problem Noted Date Diagnosed Date Resolved Date Hiatal hernia 08/17/2019 08/18/2019 Essential hypertension, benign 07/13/2006 11/10/2006 Overview: since 1999 Disorder of bone and cartilage, unspecified 03/30/2006 05/13/2009 Overview: BMD 6/ Recurrent major depression i n partial remission 05/15/2020 documented as of this encounter (statuses as of 06/23/2023) [facility] History of Past illness Narrative* Problem Noted Date Diagnosed Date Resolved Date Hiatal hernia 08/17/2019 08/18/2019 Essential hypertension, benign 07/13/2006 11/10/2006 Overview: since 1999 Disorder of bone and cartilage, unspecified 03/30/2006 05/13/2009 Overview: BMD 6 Recurrent major depression i n partial remission 05/15/2020 documented as of this encounter (statuses as of 07/02/2023) [facility] History of Past illness Narrative* Problem Noted Date Diagnosed Date Resolved Date Hiatal hernia 08/17/2019 08/18/2019 Essential hypertension, benign 07/13/2006 11/10/2006 Overview: since 1999 Disorder of bone and cartilage, unspecified 03/30/2006 05/13/2009 Overview: BMD 6 Recurrent major depression i n partial remission 05/15/2020 documented as of this encounter (statuses as of 07/15/2023) [facility] History of Past illness Narrative* Problem Noted Date Diagnosed Date Resolved Date Hiatal hernia 08/17/2019 08/18/2019 Essential hypertension, benign 07/13/2006 11/10/2006 Overview: since 1999 Disorder of bone and cartilage, unspecified 03/30/2006 05/13/2009 Overview: BMD 6 Recurrent major depression i n partial remission 05/15/2020 documented as of this encounter (statuses as of 08/29/2023) [facility] History of Past illness Narrative* Problem Noted Date Diagnosed Date Resolved Date Hiatal hernia 08/17/2019 08/18/2019 Essential hypertension, benign 07/13/2006 11/10/2006 Overview: since 1999 Disorder of bone and cartilage, unspecified 03/30/2006 05/13/2009 Overview: BMD 601 Recurrent major depression i n partial remission 05/15/2020 documented as of this encounter (statuses as of 08/29/2023) [facility] Diagnosis Essential hypertension- Primary Unspecified essential hypertension Hypothyroidism, unspecified type Hyperlipidemia, mixed Mixed hyperlipidemia SVT (supraventricular tachycardia) (HCC) Other specified cardiac dysrhythmias Acquired hypothyroidism Unspecified hypothyroidism Rheumatoid arthritis of multiple sites with negative rheumatoid factor (HCC) documented in this encounter [facility] Diagnosis Essential hypertension Unspecified essential hypertension [facility] Diagnosis Encounter for screening mammogram for malignant neoplasm of breast Other screening mammogram [facility]* Diagnosis Encounter for screening mammogram for malignant neoplasm of breast- Primary Other screening mammogram [facility] Diagnosis Essential hypertension- Primary Unspecified essential hypertension Hypothyroidism, unspecified type Rheumatoid arthritis of multiple sites with negative rheumatoid factor (HCC) Disorder of lipoprotein and lipid metabolism Unspecified disorder of lipoid metabolism documented [facility] this encounter [facility] Diagnosis Essential hypertension- Primary Unspecified essential hypertension SVT (supraventricular tachycardia) (HCC) Other specified cardiac dysrhythmias Gastroesophageal reflux disease, unspecified whether esophagitis present Rheumatoid arthritis of multiple sites with negative rheumatoid factor (HCC) Disorder of lipoprotein and lipid metabolism Unspecified disorder of lipoid metabolism Depression, unspecified depression type Hypothyroidism, unspecified type Encounter for screening mammogram for malignant neoplasm of breast Other screening mammogram Encounter for screening for osteoporosis Special screening for osteoporosis Asymptomatic menopausal state Asymptomatic postmenopausal status (age-related) (natural) documented [facility]* Diagnosis Mild episode of recurrent major depressive disorder (HCC)- Primary [facility] Diagnosis SVT (supraventricular tachycardia) (HCC) Other specified cardiac dysrhythmias [facility]* Diagnosis Encounter for screening for osteoporosis Special screening for osteoporosis Asymptomatic menopausal state Asymptomatic postmenopausal status (age-related) (natural) documented in this encounter [facility] Diagnosis Encounter for screening mammogram for malignant neoplasm of breast Other screening mammogram documented in this encounter [facility] for referral (narrative)* Diagnostic Procedure Only (Routine) - Closed Specialty Diagnoses / Procedures Referred By Contac t Referred To Contact [facility] Diagnoses Encounter for screening mammogram for malignant neoplasm of breast Procedures GRISELDA SCREENING SCREENING MAMMOGRAPHY BI 2-VIEW BREAST INC Tessy Hernández MD [address] [place] [address] [facility] [address] [place] [address] Referral ID Status Reason Start Date Expiration Date V isits Requested Visits Authorized [id number] Closed Auto-Generate d Referral 06/11/2022 07/11/2023 1 1 [facility] for referral (narrative)* Diagnostic Procedure Only (Routine) - Closed Specialty Diagnoses / Procedures Referred By Jovany prieto Referred To Contact [facility] Diagnoses Encounter for screening mammogram for malignant neoplasm of breast Procedures GRISELDA SCREENING SCREENING MAMMOGRAPHY BI 2-VIEW BREAST INC Tessy Hernández MD [address] [place] [address] [facility] [address] [place] [address] Referral ID Status Reason Start Date Expiration Date V isits Requested Visits Authorized [id number] Closed Auto-Generate d Referral 06/11/2022 07/11/2023 1 1 T [facility] for referral (narrative)* Diagnostic Procedure Only (Routine) - Authorized Specialty Diagnoses / Procedures Referred By Jovany prieto Referred To Contact [facility] Diagnoses Encounter for screening mammogram for malignant neoplasm of breast Procedures GRISELDA SCREENING SCREENING MAMMOGRAPHY BI 2-VIEW BREAST INC Tessy Hernández MD [address] [place] [address] [facility] [address] [place] [address] Referral ID Status Reason Start Date Expiration Date Visits Requested Visits Authorized [id number] Authorized Auto-Generat ed Referral 04/12/2023 05/11/2024 1 1 [facility] for referral (narrative)* Diagnostic Procedure Only (Routine) - Closed Specialty Diagnoses / Procedures Referred By Jovany t Referred To Contact [facility] Diagnoses Encounter for screening mammogram for malignant neoplasm of breast Procedures GRISELDA SCREENING SCREENING MAMMOGRAPHY BI 2-VIEW BREAST INC Tessy Hernández MD [address] [place] [address] [facility] [address] [place] [address] Referral ID Status Reason Start Date Expiration Date V isits Requested Visits Authorized [id number] Closed Auto-Generate d Referral 04/12/2023 05/11/2024 1 1 [facility] for visit Narrative* Diagnostic Procedure Only (Routine) - Closed Specialty Diagnoses / Procedures Referred By Jovany prieto Referred To Contact [facility] Diagnoses Encounter for screening mammogram for malignant neoplasm of breast Procedures GRISELDA SCREENING SCREENING MAMMOGRAPHY BI 2-VIEW BREAST INC Tessy Hernández MD [address] [place] [address] [facility] [address] [place] [address] Referral ID Status Reason Start Date Expiration Date V isits Requested Visits Authorized [id number] Closed Auto-Generate d Referral 06/11/2022 07/11/2023 1 1 [facility] for visit Narrative* Diagnostic Procedure Only (Routine) - Closed Specialty Diagnoses / Procedures Referred By Jovany prieto Referred To Contact [facility] Diagnoses Encounter for screening mammogram for malignant neoplasm of breast Procedures GRISELDA SCREENING SCREENING MAMMOGRAPHY BI 2-VIEW BREAST INC Tessy Hernández MD [address] [place] [address] [facility] [address] [place] [address] Referral ID Status Reason Start Date Expiration Date V isits Requested Visits Authorized [id number] Closed Auto-Generate d Referral 04/12/2023 05/11/2024 1 1 [facility] Summary Purpose Family History No Family History Records FoundNo Family History Records FoundNo Family History Records Found Advance Directives Documents on File Type Date Recorded 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 Directive(s) 08/17/2019 8:47 AM L IVING WILL ONLY Advance Directive(s) 08/17/2019 8:58 AM P OA ONLY Advance Directive(s) 07/12/2019 12:37 PM Advance Directive(s) 05/13/2009 12:00 AM L IVING WILL ONLY Advance Directive(s) 12/09/2006 12:00 AM L IVING WILL ONLY Documents on File Type Date Recorded 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 Directive(s) 08/17/2019 8:58 AM P OA ONLY Advance Directive(s) 05/13/2009 LIVING WILL ONLY Advance Directive(s) 12/09/2006 LIVING WILL ONLY Documents on File Type Date Recorded 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 Source Comments (unrecognize d section and content) In the event this informatio n is protected by the Federal Confidentiality of Alcohol and Drug Abuse Patient Records regulations: The Federal rules restrict any use of the information to criminally investigate or prosecute any alcohol or drug abuse patient.[facility] the event this information is protected by the Federal Confidentiality of Alcohol and Drug Abuse Patient Records regulations: The Federal rules restrict any use of the information to criminally investigate or prosecute any alcohol or drug abuse patient.[facility] the event this information is protected by the Federal Confidentiality of Alcohol and Drug Abuse Patient Records regulations: The Federal rules restrict any use of the information to criminally investigate or prosecute any alcohol or drug abuse patient.[facility] the event this information is protected by the Federal Confidentiality of Alcohol and Drug Abuse Patient Records regulations: The Federal rules restrict any use of the information to criminally investigate or prosecute any alcohol or drug abuse patient.[facility] the event this information is protected by the Federal Confidentiality of Alcohol and Drug Abuse Patient Records regulations: The Federal rules restrict any use of the information to criminally investigate or prosecute any alcohol or drug abuse patient.[facility] the event this information is protected by the Federal Confidentiality of Alcohol and Drug Abuse Patient Records regulations: The Federal rules restrict any use of the information to criminally investigate or prosecute any alcohol or drug abuse patient.[facility] the event this information is protected by the Federal Confidentiality of Alcohol and Drug Abuse Patient Records regulations: The Federal rules restrict any use of the information to criminally investigate or prosecute any alcohol or drug abuse patient.[facility] HospitalIn the event this information is protected by the Federal Confidentiality of Alcohol and Drug Abuse Patient Records regulations: The Federal rules restrict any use of the information to criminally investigate or prosecute any alcohol or drug abuse patient.[facility] HospitalIn the event this information is protected by the Federal Confidentiality of Alcohol and Drug Abuse Patient Records regulations: The Federal rules restrict any use of the information to criminally investigate or prosecute any alcohol or drug abuse patient.[facility] HospitalIn the event this information is protected by the Federal Confidentiality of Alcohol and Drug Abuse Patient Records regulations: The Federal rules restrict any use of the information to criminally investigate or prosecute any alcohol or drug abuse patient.[facility] HospitalIn the event this information is protected by the Federal Confidentiality of Alcohol and Drug Abuse Patient Records regulations: The Federal rules restrict any use of the information to criminally investigate or prosecute any alcohol or drug abuse patient.[facility] HospitalIn the event this information is protected by the Federal Confidentiality of Alcohol and Drug Abuse Patient Records regulations: The Federal rules restrict any use of the information to criminally investigate or prosecute any alcohol or drug abuse patient.[facility] HospitalIn the event this information is protected by the Federal Confidentiality of Alcohol and Drug Abuse Patient Records regulations: The Federal rules restrict any use of the information to criminally investigate or prosecute any alcohol or drug abuse patient.[facility] HospitalIn the event this information is protected by the Federal Confidentiality of Alcohol and Drug Abuse Patient Records regulations: The Federal rules restrict any use of the information to criminally investigate or prosecute any alcohol or drug abuse patient.[facility] HospitalIn the event this information is protected by the Federal Confidentiality of Alcohol and Drug Abuse Patient Records regulations: The Federal rules restrict any use of the information to criminally investigate or prosecute any alcohol or drug abuse patient.[facility] Reason for Visit (unrecogniz ed section and content) Reason Comments Patient Update Immunizations Reason Comments Refill Request Reason Comments Information Paxlovid issue Reason Comments Orders Patient calling and would like order for routine mammogram. No problems, just wants to have one done after 07/12/22 Reason Comments 6 Month Exam Reason Comments 6 Month Exam Reason Comments F/U 1 month Zoloft Reason Comments Covid Positive Reason Comments Urinary Symptoms Reason Onset Date Comments Refill Request 07/02/2023 Care Teams (unrecognized sec tion and content) 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 Relationship Specialty Start Date End Date Tessy Otero MD [address] [place], [place] [id number] PCP - General 07/09/09 Mikayla Benites [address] [place] [address] Physician Rheumatology 06/05/19 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 Relationship Specialty Start Date End Date Tessy Otero MD [address], [place] [id number] PCP - General 07/09/09 Mikayla Benites [address] [place], [place] [address] Physician Rheumatology 06/05/19 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 Relationship Specialty Start Date End Date Tessy Otero MD [address] [place] [address] PCP - General 07/09/09 Delmis, Mikayla L [address] [place] [address] Physician Rheumatology 06/05/19 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 Relationship Specialty Start Date End Date Tessy Otero MD [address] [place] [address] PCP - General 07/09/09 Delmis, Mikayla L [address] [place] [address] Physician Rheumatology 06/05/19 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 Relationship Specialty Start Date End Date Tessy Otero MD [address] [place] [address] PCP - General 07/09/09 Velisiah, Mikayla L [address] [place] [address] Physician Rheumatology 06/05/19 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 Relationship Specialty Start Date End Date Tessy Otero MD [address] [place] [address] PCP - General 07/09/09 Delmis, Mikayla L [address] [place] [address] Physician Rheumatology 06/05/19 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 Relationship Specialty Start Date End Date Tessy Otero MD [address] [place] [address] PCP - General 07/09/09 Delmis, Mikayla L [address] [place] [address] Physician Rheumatology 06/05/19 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 Relationship Specialty Start Date End Date Tessy Otero MD [address] [facility] [place] [address] PCP - General 07/09/09 Mikayla Benites [address] [place] [address] Physician Rheumatology 06/05/19 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 Relationship Specialty Start Date End Date Tessy Otero MD [address] [place] [address] PCP - General 07/09/09 Mikayla Benites [address] [place] [address] Physician Rheumatology 06/05/19 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 Relationship Specialty Start Date End Date Tessy Otero MD [address] [facility] [place] [address] PCP - General 07/09/09 Mikayla Benites [address] [place] [address] Physician Rheumatology 06/05/19 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 Relationship Specialty Start Date End Date Tessy Otero MD [address] [facility] [place] [address] PCP - General 07/09/09 Mikayla Benites [address] [place] [address] Physician Rheumatology 06/05/19 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 This clinical summary was aggregated from multiple sources. Caution should be exercised in using it in the provision of clinical care. This summary normalizes information from multiple sources, and as a consequence, information in this document may materially change the coding, format and clinical context of patient data. In addition, data may be omitted in some cases. CLINICAL DECISIONS SHOULD BE BASED ON THE PRIMARY CLINICAL RECORDS. [employer] [facility]. provides no warranty or guarantee of the accuracy or completeness of information in this document.
== END ==
LOC: CVS 08:59
PROVIDERS: PCP Family Medicine
DX: Z13.6 Encounter for screening for cardiovascular disorders (principal)

== ENCOUNTER → 2024-02-29 | Outpatient (CLI) | payer MEDICARE, BC, SELFPAY ==
[2024-02-29 12:41] LABS: Absolute Lymphocyte Count 1.52 X10^3/uL (0.83-4.51); Absolute Neutrophil Count 4.7 X10^3/uL (2.0-7.7); Basophil# 0.08 X10^3/uL; Basophil% 1.1 % (0-1); Eosinophil# 0.19 X10^3/uL; Eosinophils% 2.6 % (0-5); Hematocrit 46.3 % (37-47); Hemoglobin 15.6 g/dL (12.0-15.0); Lymphocyte # 1.52 X10^3/ul (0.83-4.51); Lymphocyte % 20.6 % (19-41); Mean Corp Hgb Conc 33.7 g/dL (32-36); Mean Corpuscular Hgb 33.6 pg (27.0-32.0); Mean Corpuscular Volume 99.8 fL (81-99); Mean Platelet Vol. 10.9 fl (6.2-12.0); Monocyte# 0.89 X10^3/uL; Monocyte% 12.1 % (0-10); NRBC Flagged by Analyzer 0 % (0-5); Neutrophil # 4.67 X10^3/uL (2.7-7.7); Neutrophil % 63.3 % (47-70); Platelet Count 215 K/mm3 (150-450); RBC Distribution Width CV 12.3 % (11.6-14.6); RBC Distribution Width SD 45.1 fl (35.1-43.9); Red Blood Count 4.64 M/mm3 (4.2-5.4); White Blood Count 7.4 K/mm3 (4.4-11.0)
[2024-02-29 13:05] LABS: ALB/GLOB Ratio 1.1 RATIO (0.9-2.4); AST(SGOT) 34 U/L (15-37); Alanine Aminotransfer ALT/SGPT 42 U/L (13-56); Alkaline Phosphatase 53 U/L (45-117); Anion Gap 6 (5-15); BUN 13 mg/dL (7-18); Calcium,Total 9.1 mg/dL (8.5-10.1); Chloride 106 mmol/L (98-107); Creatinine, Serum 1.18 mg/dL (0.55-1.02); EST Glomerular Filtration Rate 46 mL/min (>60); Est Glom Filt Rate - Afr Amer 56 mL/min (>60); Globulin 3.5 g/dL (2.2-4.2); Glucose 109 mg/dL (74-106); Potassium 4.2 mmol/L (3.5-5.1); Protein, Total 7.5 g/dL (6.4-8.2); Sodium Level 137 mmol/L (136-145)
== END | disposition home or self-care (01) ==
LOC: MTLAB 10:37
PROVIDERS: PCP Family Medicine; Referring Provider Internal Medicine Rheumatology; Visit Provider Internal Medicine Rheumatology
DX: M06.4 Inflammatory polyarthropathy (principal); Z79.899 Other long term (current) drug therapy; M15.9 Polyosteoarthritis, unspecified
CPT/HCPCS: 36415; 80053; 85025

== ENCOUNTER → 2024-05-29 | Outpatient (CLI) | payer MEDICARE, BC, SELFPAY ==
[2024-05-29 15:40] LABS: Absolute Neutrophil Count 3.6 X10^3/uL (2.0-7.7); Basophil# 0.12 X10^3/uL; Basophil% 1.7 % (0-1); Eosinophils% 4.3 % (0-5); Hematocrit 45.3 % (37-47); Hemoglobin 14.9 g/dL (12.0-15.0); Lymphocyte % 28.8 % (19-41); Mean Corp Hgb Conc 32.9 g/dL (32-36); Mean Corpuscular Hgb 32.9 pg (27.0-32.0); Mean Platelet Vol. 11.5 fl (6.2-12.0); Monocyte# 0.89 X10^3/uL; Monocyte% 12.8 % (0-10); NRBC Flagged by Analyzer 0 % (0-5); Neutrophil # 3.61 X10^3/uL (2.7-7.7); Neutrophil % 52.1 % (47-70); Platelet Count 220 K/mm3 (150-450); RBC Distribution Width CV 12.2 % (11.6-14.6); RBC Distribution Width SD 45.1 fl (35.1-43.9); Red Blood Count 4.53 M/mm3 (4.2-5.4); White Blood Count 6.9 K/mm3 (4.4-11.0)
[2024-05-29 18:01] LABS: AST(SGOT) 34 U/L (15-37); Alanine Aminotransfer ALT/SGPT 38 U/L (13-56); Albumin, Serum 3.6 g/dL (3.2-5.0); Alkaline Phosphatase 48 U/L (45-117); Anion Gap 7 (5-15); BUN 21 mg/dL (7-18); BUN/Creat Ratio 26.5 RATIO (10-20); Calcium,Total 9.2 mg/dL (8.5-10.1); Chloride 105 mmol/L (98-107); Creatinine, Serum 0.79 mg/dL (0.55-1.02); EST Glomerular Filtration Rate 73 mL/min (>60); Est Glom Filt Rate - Afr Amer 88 mL/min (>60); Globulin 3.7 g/dL (2.2-4.2); Glucose 113 mg/dL (74-106); Potassium 3.9 mmol/L (3.5-5.1); Protein, Total 7.3 g/dL (6.4-8.2); Sodium Level 135 mmol/L (136-145)
== END | disposition home or self-care (01) ==
PROVIDERS: PCP Family Medicine; Referring Provider Internal Medicine Rheumatology; Visit Provider Internal Medicine Rheumatology
DX: M06.4 Inflammatory polyarthropathy (principal); Z79.899 Other long term (current) drug therapy; M15.9 Polyosteoarthritis, unspecified
CPT/HCPCS: 36415; 80053; 85025

== ENCOUNTER 2024-06-27 15:30 | Inpatient (IN) | payer MEDICARE, BC, SELFPAY ==
[2024-06-27 15:30] VITALS: BP 164/78; PULSE 66; RESP 16; TEMP 36.6; O2SAT 98; BMI 27.3
--- NOTE | 2024-06-27 16:45 | ED.RN ---
THIS NURSE WAS NOTIFIED IN TRIAGE BY THE PATIENTS DAUGHTER THAT PATIENT HAD 1 EPISODE OF BLOOD STOOL.
[2024-06-27 17:27] VITALS: BP 166/74; PULSE 55; RESP 18; O2SAT 98
[2024-06-27 17:28] LABS: Absolute Lymphocyte Count 1.67 X10^3/uL (0.83-4.51); Absolute Neutrophil Count 8.7 X10^3/uL (2.0-7.7); Basophil# 0.08 X10^3/uL; Basophil% 0.7 % (0-1); Eosinophil# 0.16 X10^3/uL; Eosinophils% 1.4 % (0-5); Hematocrit 36.4 % (37-47); Lymphocyte # 1.67 X10^3/ul (0.83-4.51); Lymphocyte % 14.1 % (19-41); Mean Corpuscular Hgb 33.4 pg (27.0-32.0); Mean Corpuscular Volume 101.4 fL (81-99); Monocyte# 1.16 X10^3/uL; Monocyte% 9.8 % (0-10); NRBC Flagged by Analyzer 0 % (0-5); Neutrophil # 8.72 X10^3/uL (2.7-7.7); Neutrophil % 73.6 % (47-70); Platelet Count 166 K/mm3 (150-450); RBC Distribution Width CV 12.6 % (11.6-14.6); Red Blood Count 3.59 M/mm3 (4.2-5.4); White Blood Count 11.8 K/mm3 (4.4-11.0)
[2024-06-27 18:13] LABS: Mucous, Urine 0 SEEN /hpf (<or=2+); Squamous Epithelial Cells - UA 0 SEEN /hpf (5-10)
--- NOTE | 2024-06-27 18:13 | EX.ED.DYSGE1 ---
HPI History of Present Illness Chief Complaint: GI Bleed [facility] Medical History Anxiety Arthritis Asthma Atherosclerosis of coronary artery bypass graft of [place] heart with angina pectoris Cardiology follow-up encounter Depressive disorder Essential hypertension Generalized osteoarthrosis, unspecified site GERD (gastroesophageal reflux disease) Hiatal hernia High cholesterol History of diverticulitis History of echocardiogram History of left heart catheterization (05/19/21) History of stress test Hyperlipidemia Hypertension Hypothyroidism Minor surgery performed Non-smoker Osteopenia PONV (postoperative nausea and vomiting) Rheumatoid arthritis Spinal stenosis Thyroid disease Wears glasses Home Medications ?Medication ?Instructions ?Recorded ?Last Taken ?Type metoprolol succinate 25 mg 25 mg PO DAILY 04/14/21 08/09/23 08:00 History tablet,extended release 24 hr mometasone-formoterol HFA 100 1 puff inhalation BID PRN cough 04/14/21 Unknown History mcg-5 mcg/actuation aerosol inhaler multivitamin 1 tab PO DAILY 04/14/21 Unknown History ramipril 5 mg capsule 5 mg PO DAILY 04/14/21 08/09/23 History aspirin 81 mg tablet,delayed 81 mg PO .MWF start prior to left 05/03/21 07/26/23 History release (Adult Low Dose Aspirin) heart cath hydroxychloroquine 200 mg tablet 200 mg PO BID 08/18/21 Unknown History albuterol sulfate 90 mcg/actuation 2 inh inhalation Q6H PRN shortness 07/08/22 Unknown History aerosol inhaler of breath or wheezing levothyroxine 75 mcg tablet 75 mcg PO DAILY 07/08/22 08/09/23 History rosuvastatin 5 mg tablet See Rx Instructions .Route 03/01/23 Unknown Rx .COMPLEX #45 tabs amiodarone 100 mg tablet See Rx Instructions .Route 03/05/23 08/09/23 Rx .COMPLEX #90 tabs folic acid 1 mg tablet 1 mg PO DAILY PRN pt. unsure 09/24/23 Unknown History omeprazole magnesium 20 mg 20 mg PO DAILY PRN heartburn 09/24/23 Unknown History tablet,delayed release (Prilosec OTC) sertraline 25 mg tablet 25 mg PO DAILY anxiety 09/24/23 Unknown History Allergy/AdvReac Type Severity Reaction Status Date / Time simvastatin AdvReac Unknown Other Verified 09/24/23 10:24 atorvastatin calcium (From AdvReac Other Verified 09/24/23 10:24 Lipitor) Family History Mother Diabetes Father Cancer CAD (coronary artery disease) Sister No problems noted. Surgical History History of appendectomy History of cardiac catheterization History of cataract extraction History of cholecystectomy History of colonoscopy History of esophageal hernia repair History of esophagogastroduodenoscopy (EGD) History of hysterectomy History of total bilateral knee replacement History of umbilical hernia repair Social History Smoking Status: Never smoker alcohol intake: current substance use type: does not use EXAM Physical Exam Const Vital Signs: 06/27/24 15:30 06/27/24 17:27 06/27/24 18:48 Temperature 98 F Temperature Source Temporal Pulse Rate 66 55 L 59 L Respiratory Rate 16 18 19 H Blood Pressure 164/78 H 166/74 H 174/88 H Blood Pressure Mean 106 104 116 Pulse Ox 98 98 95 Oxygen Delivery Method Room Air Room Air Room Air 06/27/24 20:00 06/27/24 22:00 Temperature Temperature Source Pulse Rate 76 59 L Respiratory Rate 21 H 18 Blood Pressure 139/62 H 146/77 H Blood Pressure Mean 87 100 Pulse Ox 92 95 Oxygen Delivery Method MDM MDM MDM Narrative Medical decision making narrative: HISTORY OF PRESENT ILLNESS: 89 F here with low blood pressure, concern for GI bleed. Patient states she has had low blood pressure at home was 80s over 60s, she notes she feels lightheaded and nauseous. Notes bowel movements and dry heaves for the last hour. Per the patient's daughter and patient was attending use of bathroom but could not she became lightheaded dizzy pale and warm. This resolved however daughter notes over last 3 to 4 hours patient's had multiple large bloody bowel movements. REVIEW OF SYSTEMS: Pertinent positives: GI bleed, dry heaves, lightheadedness Pertinent negatives: Chest pain, shortness of breath PHYSICAL EXAM: Nursing triage notes reviewed, Vital signs reviewed Constitutional: please see mdm HENT: MMM Eyes: Pupils equal round and reactive to light, Extraocular muscles intact Neck: No stridor, no JVD, full neck ROM Lungs: Clear to auscultation, No wheezing or rales. No increased work of breathing, no conversational dyspnea, no accessory muscle use, no nasal flaring. No respiratory distress noted Heart: Regular rate and rhythm, No murmurs, No rubs and No gallops, 2+ distal pulses (radial, femoral, posterior tibial) in all extremities Abdomen: Soft, there is no tenderness, rigidity, rebound or guarding, no obvious peritoneal signs, no palpable pulsatile abdominal masses, no auscultated abdominal bruit : No CVAT Extremities: No edema Rectal: Performed wardrobe attendant in room showed obvious blood on the glove Neuro: No focal neurological deficits, cranial nerves II through XII intact, 5/5 strength in all extremities. Intact sensation to light touch in all extremities, 2+ reflexes bilateral patella tendons. Normal gait. No ataxia. Skin: Slight pallor noted MEDICAL DECISION MAKING: Chief Complaint: Concern for GI bleed External records reviewed: No blood thinners noted Factors affecting care: CAD, SVT, hypertension, hyperlipidemia Social determinants of health: none History obtained from others: Family Consults: Internal medicine at [facility] (Dr. Keene), [facility] (Dr. Carranza), internal medicine at [facility] (Dr. Mckeon), Critical Care at [facility] (Dr. Roque) MDM Narrative: Patient was initially hypertensive the blood pressure 164/78, otherwise afebrile and nontoxic-appearing. Exam without obvious peritoneal signs. I considered the following differential diagnosis: GI bleed, anemia, electrolyte disturbance, ACS, arrhythmia, diverticulitis, mass ALL IMAGES (IF OBTAINED) HAVE BEEN PERSONALLY REVIEWED AND INTERPRETED BY MYSELF. Protocol orders placed secondary to poor department of conditions including high acuity and high volume (CBC, BMP, LFTs, urinalysis) CBC with no anemia (however her baseline is much higher than today, she has dropped 2.9 g/dl, noted leukocytosis, no UA showed evidence of infection LFTs show no evidence of hepatobiliary pathology. BMP without evidence of significant electrolyte abnormalities, no anion gap, no acute kidney injury. I added EKG, troponin, coagulation factors, stool occult blood sample, type and screen, CT scan abdomen pelvis IV contrast. No immediate treatment is warranted as patient was comfortable and hemodynamically stable with improved blood pressure spontaneously. EKG showed normal sinus rhythm with prolonged TN interval, first-degree AV block, frequent PVCs, normal axis, no STEMI High-sensitivity troponin is negative, no evidence of myocardial ischemia No evidence of coagulopathy CT scan abdomen pelvis showed evidence of likely Lower GI hemorrhage, diverticulitis I discussed the case with the hospitalist here at [facility] who recommended consulting general surgery to ascertain if they would be willing to do a colonoscopy as [facility] did not did not have gastroenterology or interventional radiology on-call to evaluate the patient's bleeding and concern for brisk lower GI bleed given abrupt drop in hemoglobin. I spoke to general surgeon on-call who did not feel comfortable keeping the patient here and performing colonoscopy and managing a brisk lower GI bleed. We reached out to several nearby institutions including [facility], [facility], [facility] who are all on transfer diversion were not accepting patients in transfer at this time. We finally were able to reach the facility that had the capacity to accept the patient. We spoke to the internal medicine physician at [facility] who is concerned of the patient will require ICU admission given 2.9 g/dL drop in hemoglobin and report of multiple episodes of large bloody bowel movement. I discussed case with the ICU physician at [facility] who recommended obtaining a lactate. He noted if the lactate was elevated she would be appropriate for ICU admission. He noted if the lactate was NOT elevated she would be appropriate for floor admission. Lactate was drawn and in addition to this I redrew a CBC to trend the patient's hemoglobin. Lactate is wnl indicating no end-organ hypoperfusion and/or hypoxia. Repeat CBC showed improvement in hemoglobin from 12 to 14.6 g/dL Given the patient's lactate was negative and hemoglobin improved has appropriate for floor admission at accepting facility. This was communicated to the rust and Dr. Mckeon who agreed with transfer and admission to the floor. Patient was signed out to overnight physician pending transfer. Transfer form signed. The patient and/or family, caregivers express understanding. The patient and/or family, caregivers agrees with the plan. Shared decision making: I will have a discussion with the patient and or visitors regarding risk/benefits of further testing or admission. They will be made aware of of the risk/benefits inherent in this decision they will be given the opportunity to voice understanding. Total critical care time today provided was at least 0 minutes. This excludes separately billable procedures. Critical care time (if documented) is secondary to the patient having high probability of clinically significant/life threatening deterioration in the patient's condition which required my urgent intervention. Impression: 1. Near syncope 2. GI bleed 3. Diverticulitis Dispo: Transfer to [facility] This note was generated with [employer] dictation software. It may contain incorrect words, spelling, and punctuation that were not noted in review of the chart prior to signing. Lab Data Labs: Laboratory Results - last 24 hr 06/27/24 06/27/24 06/27/24 17:14 18:08 18:15 WBC 11.8 H RBC 3.59 L Hgb 12.0 Hct 36.4 L MCV 101.4 H MCH 33.4 H MCHC 33.0 RDW Std Deviation 47.0 H RDW Coeff of Braed[place] 12.6 Plt Count 166 MPV 11.0 Immature Gran % (Auto) 0.400 Neut % (Auto) 73.6 H Lymph % (Auto) 14.1 L [place] % (Auto) 9.8 Eos % (Auto) 1.4 Baso % (Auto) 0.7 Absolute Neuts (auto) 8.7 H Absolute Lymphs (auto) 1.67 Nucleated RBC % 0 PT 12.8 INR 1.0 APTT 26.8 Sodium Cancelled 137 Potassium Cancelled 4.4 Chloride Cancelled 104 Carbon Dioxide Cancelled 24.0 Anion Gap Cancelled 9 BUN Cancelled 14 Creatinine Cancelled 0.87 Estim Creat Clear Calc Cancelled 44.43 Est GFR (MDRD) Af Amer Cancelled 79 Est GFR (MDRD) Non-Af Cancelled 65 BUN/Creatinine Ratio Cancelled 16.0 Glucose Cancelled 113 H Lactic Acid Calcium Cancelled 9.8 Total Bilirubin Cancelled 0.80 AST Cancelled 47 H ALT Cancelled 45 Alkaline Phosphatase Cancelled 67 Troponin I High Sens 5 Total Protein Cancelled 7.8 Albumin Cancelled 3.9 Globulin Cancelled 3.9 Albumin/Globulin Ratio Cancelled 1.0 Urine Color Yellow Urine Clarity Sl. Cloudy Urine pH 6.0 Ur Specific [place] 1.015 Urine Protein 15 H Urine Glucose (UA) Normal Urine Ketones Negative Urine Occult Blood 150 H Urine Nitrite Positive H Urine Bilirubin Negative Urine Urobilinogen Normal Ur Leukocyte Esterase 500 H Urine RBC 0-5 SEEN Urine WBC 5-10 SEEN Ur Squamous Epith Cells 0 SEEN Urine Bacteria 2+ Urine Mucus 0 SEEN 06/27/24 06/27/24 21:26 21:32 WBC 11.7 H RBC 4.43 Hgb 14.6 Hct 43.6 MCV 98.4 MCH 33.0 H MCHC 33.5 RDW Std Deviation 43.9 RDW Coeff of Bra[place] 12.1 Plt Count 192 MPV 10.3 Immature Gran % (Auto) Neut % (Auto) Lymph % (Auto) [place] % (Auto) Eos % (Auto) Baso % (Auto) Absolute Neuts (auto) Absolute Lymphs (auto) Nucleated RBC % PT INR APTT Sodium Potassium Chloride Carbon Dioxide Anion Gap BUN Creatinine Estim Creat Clear Calc Est GFR (MDRD) Af Amer Est GFR (MDRD) Non-Af BUN/Creatinine Ratio Glucose Lactic Acid 1.4 Calcium Total Bilirubin AST ALT Alkaline Phosphatase Troponin I High Sens Total Protein Albumin Globulin Albumin/Globulin Ratio Urine Color Urine Clarity Urine pH Ur Specific [place] Urine Protein Urine Glucose (UA) Urine Ketones Urine Occult Blood Urine Nitrite Urine Bilirubin Urine Urobilinogen Ur Leukocyte Esterase Urine RBC Urine WBC Ur Squamous Epith Cells Urine Bacteria Urine Mucus Radiography Diagnostic Testing: Clinical Impression(s) from Imaging Studies Abdomen/Pelvis CT 06/27/24 18:32 IMPRESSION: Diverticular changes of the distal descending and sigmoid colon findings consistent with mild acute diverticulitis of the sigmoid without peridiverticular abscess. Cannot definitively exclude presence of intraluminal hemorrhage within the sigmoid versus previously ingested oral contrast Recommend clinical correlation and further assessment with radionuclide tagged red blood cell study if clinically warranted. Electronically Signed: Ernie Whipple MD at 19:52 EDT , Discharge Plan Triage Chief Complaint: GI Bleed Other Complaint: General Illness ED Provider: Norberto Hurt Dx/Rx/DC Orders Prescriptions: No Action mometasone-formoterol 100-5 mcg/actuation HFA aerosol inhaler 1 puff inhalation BID PRN (Reason: cough) multivitamin Tablet 1 tab PO DAILY ramipril 5 mg capsule 5 mg PO DAILY levothyroxine 75 mcg tablet 75 mcg PO DAILY albuterol sulfate 90 mcg/actuation HFA aerosol inhaler 2 inh inhalation Q6H PRN (Reason: shortness of breath or wheezing) folic acid 1 mg tablet 1 mg PO DAILY PRN (Reason: pt. unsure) omeprazole magnesium [Prilosec OTC] 20 mg tablet,delayed release (DR/EC) 20 mg PO DAILY PRN (Reason: heartburn) metoprolol succinate 25 mg tablet extended release 24 hr 25 mg PO DAILY hydroxychloroquine 200 mg tablet 200 mg PO BID sertraline 25 mg tablet 25 mg PO DAILY aspirin [Adult Low Dose Aspirin] 81 mg tablet,delayed release (DR/EC) 81 mg PO .MWF rosuvastatin 5 mg tablet See Rx Instructions .ROUTE .COMPLEX Qty: 45 3RF Dose Instruction: TAKE 1 TABLET BY MOUTH EVERY OTHER DAY Rx Instructions: TAKE 1 TABLET BY MOUTH EVERY OTHER DAY amiodarone 100 mg tablet See Rx Instructions .ROUTE .COMPLEX Qty: 90 3RF Dose Instruction: TAKE 1 TABLET BY MOUTH EVERY DAY Rx Instructions: TAKE 1 TABLET BY MOUTH EVERY DAY Primary Care Provider: Michael Garcia Referrals: Michael Garcia MD [Primary Care Provider] - Print Language: Portuguese
[2024-06-27 18:18] LABS: Color, Urine Yellow (Yellow); Glucose, Dipstick Normal (Normal); Ketone-Dipstick Negative (Negative); Leukocyte Esterase-Dipstick 500 /ul (Negative); Nitrite-Dipstick Positive (Negative); Occult Blood-Urine 150 /ul (Negative); Protein-Dipstick 15 mg/dl (Negative); Specific Gravity, Urine 1.015 (1.002-1.030); Urine Bilirubin Dipstick Negative (Negative); Urine Clarity Sl. Cloudy (Clear); Urine Urobilinogen Normal (Normal)
--- NOTE | 2024-06-27 18:32 | CT_ITS ---
STUDY: CT ABDOMEN AND PELVIS WITH CONTRAST REASON FOR EXAM: Female, 89 years old. GI bleed, abdominal pain, hx of diverticulitis RADIATION DOSAGE (If Supplied By Facility): CTDIvol = ( 17.86 ) mGy, DLP = ( 722.76 ) mGycm TECHNIQUE: Transaxial images were obtained from the dome of the diaphragm to the symphysis pubis without oral contrast. IV 100mL Isovue-370 was administered. Sagittal and coronal images were reconstructed. Individualized dose optimization techniques were used for this CT. COMPARISON: None. FINDINGS: The visualized lung bases are unremarkable. The visualized portions of the heart are within normal limits. Small hiatal hernia and small pocket of fluid in the gastric cardia possibly representing epiphrenic diverticulum. Nonspecific fatty infiltrated liver without mass or bile duct dilatation . Gallbladder not visualized consistent with cholecystectomy. Spleen is normal size however there are multiple cysts.. Normal pancreas. Normal bilateral adrenal glands. Normal right kidney. Normal left kidney. Normal visualized stomach. Normal small intestine. There are diverticular changes of the distal descending and sigmoid colon. There is focal concentric thickening of the brennan of the sigmoid colon with minor stranding of fat which may be consistent with mild acute diverticulitis. There is no peridiverticular abscess . There are tiny foci of increased attenuation within the sigmoid colon possibly representing previously ingested contrast although cannot exclude intraluminal hemorrhage. Appendix not visualized consistent with appendectomy. Mild atherosclerotic change of the aorta without evidence for aneurysm. Normal inferior vena cava. Normal retroperitoneum. Normal urinary bladder. Uterus not visualized consistent with hysterectomy Normal abdominal wall. Lumbar spine demonstrates scoliosis and degenerative change. Grade 1 spondylolisthesis at L5-S1 CT/Abdomen/Pelvis W IV Cont ONLY IMPRESSION: Diverticular changes of the distal descending and sigmoid colon findings consistent with mild acute diverticulitis of the sigmoid without peridiverticular abscess. Cannot definitively exclude presence of intraluminal hemorrhage within the sigmoid versus previously ingested oral contrast Recommend clinical correlation and further assessment with radionuclide tagged red blood cell study if clinically warranted. Electronically Signed: Ernie Whipple MD at 19:52 EDT ,
--- NOTE | 2024-06-27 18:35 | EKG12_ITS ---
Test Reason : DYSRHYTMIA Blood Pressure : / mmHG Vent. Rate : 064 BPM Atrial Rate : 064 BPM P-R Int : 212 ms QRS Dur : 070 ms QT Int : 416 ms P-R-T Axes : 073 036 011 degrees QTc Int : 429 ms Sinus rhythm with 1st degree A-V block with Premature atrial complexes with Aberrant conduction Otherwise normal ECG Confirmed by CLARISSA MARTINI, TAMMY ([id number]), scientific editor DAVID MCCLELLAND ([id number]) on 06/29/2024 1:46:10 PM Referred By: Confirmed By:TAMMY ROMO MD
[2024-06-27 18:39] LABS: AST(SGOT) 47 U/L (15-37); Alanine Aminotransfer ALT/SGPT 45 U/L (13-56); Albumin, Serum 3.9 g/dL (3.2-5.0); Alkaline Phosphatase 67 U/L (45-117); Anion Gap 9 (5-15); BUN 14 mg/dL (7-18); Calcium,Total 9.8 mg/dL (8.5-10.1); Chloride 104 mmol/L (98-107); Creatinine, Serum 0.87 mg/dL (0.55-1.02); EST Glomerular Filtration Rate 65 mL/min (>60); Est Glom Filt Rate - Afr Amer 79 mL/min (>60); Estimated Creatinine Clearance 44.43 ml/min; Globulin 3.9 g/dL (2.2-4.2); Glucose 113 mg/dL (74-106); Potassium 4.4 mmol/L (3.5-5.1); Protein, Total 7.8 g/dL (6.4-8.2); Sodium Level 137 mmol/L (136-145)
[2024-06-27 18:48] VITALS: BP 174/88; PULSE 59; RESP 19; O2SAT 95
[2024-06-27 18:51] LABS: Prothrombin Time (Protime)PT. 12.8 SECONDS (11.7-14.9)
[2024-06-27 18:52] LABS: Partial Thromboplast Time 26.8 Seconds (24.1-36.2)
[2024-06-27 19:15] LABS: Bacteria 2+ /hpf (None Seen); Red Blood Cells-Urine 0-5 SEEN /hpf (0-5); White Blood Cells 5-10 SEEN /hpf (0-5)
[2024-06-27 19:27] LABS: Troponin-I HS 5 pg/mL (3.0-54.0)
[2024-06-27 20:00] VITALS: BP 139/62; PULSE 76; RESP 21; O2SAT 92
[2024-06-27] MEDS: Piperacil/Tazobactam 3.375 GM in 0.9% Normal Saline (50mL MB+) 50 ML IV (21:31)
[2024-06-27 21:37] LABS: Hematocrit 43.6 % (37-47); Hemoglobin 14.6 g/dL (12.0-15.0); Mean Corp Hgb Conc 33.5 g/dL (32-36); Mean Corpuscular Volume 98.4 fL (81-99); Mean Platelet Vol. 10.3 fl (6.2-12.0); Platelet Count 192 K/mm3 (150-450); RBC Distribution Width CV 12.1 % (11.6-14.6); RBC Distribution Width SD 43.9 fl (35.1-43.9); Red Blood Count 4.43 M/mm3 (4.2-5.4); White Blood Count 11.7 K/mm3 (4.4-11.0)
[2024-06-27 22:00] VITALS: BP 146/77; PULSE 59; RESP 18; O2SAT 95
[2024-06-27 22:15] LABS: Lactic Acid 1.4 mmol/L (0.4-1.9)
[2024-06-27] MEDS: Ondansetron 4 MG/2 ML Vial IV (23:38)
[2024-06-27] MEDS: Morphine 2 MG/ML Syringe IV (23:38)
[2024-06-28] VITALS (22 sets, daily range): BP systolic 104–157; BP diastolic 55–86; PULSE 54–70; RESP 14–23; TEMP 36.3–36.8; O2SAT 92–100; BMI 27.8
[2024-06-28] MEDS: Ondansetron 4 MG/2 ML Vial IV (05:29)
[2024-06-28] MEDS: Morphine 2 MG/ML Syringe IV (05:29)
--- NOTE | 2024-06-28 07:54 | NURSING ---
STILL NO BED
--- NOTE | 2024-06-28 08:21 | PCM.HP.STD ---
HPI - General General Date of Admission: 06/28/24 Date of Service: 06/28/24 Chief Complaint: GI bleed, dizziness. Hypotension in ED. HPI Narrative DEBBY TOVAR, is a 89 F came to ED for abdominal pain and diarrhea. She has diarrhea for about 3 to 4 weeks along with intermittent lower abdominal pain but it got worse therefore she came to ED. She describes her abdominal pain mainly in the lower quadrant left more than right and left upper quadrant. It was intermittent until yesterday when then became constant. She also had diarrhea about 2-3 loose bowel movement with mucus but was not bloody before. It became bloody yesterday when she came to ER and had 4-5 times yesterday and 1 today. Today there was no GI on-call therefore [facility] was called for transfer and patient accepted but they did not had bed therefore admitted on the floor. She denies nausea, vomiting, fever or chills. She denies any recent sick contacts. In ED, CT abdomen/pelvis with IV contrast reviewed. Patient has diverticular changes in sigmoid colon and descending colon. Mild infiltration of pericolonic region but no abscess or collection. Fecal matter in ascending colon. She was started on IV Zosyn and further admitted. 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 Cardiology follow-up encounter Depressive disorder Essential hypertension Generalized osteoarthrosis, unspecified site GERD (gastroesophageal reflux disease) Hiatal hernia High cholesterol History of diverticulitis History of echocardiogram History of left heart catheterization (05/19/21) History of stress test Hyperlipidemia Hypertension Hypothyroidism Minor surgery performed Non-smoker Osteopenia PONV (postoperative nausea and vomiting) Rheumatoid arthritis Spinal stenosis Thyroid disease Wears glasses Home Medications ?Medication ?Instructions ?Recorded ?Last Taken ?Type metoprolol succinate 25 mg 25 mg PO DAILY 04/14/21 08/09/23 08:00 History tablet,extended release 24 hr mometasone-formoterol HFA 100 1 puff inhalation BID PRN cough 04/14/21 Unknown History mcg-5 mcg/actuation aerosol inhaler multivitamin 1 tab PO DAILY 04/14/21 Unknown History ramipril 5 mg capsule 5 mg PO DAILY 04/14/21 08/09/23 History aspirin 81 mg tablet,delayed 81 mg PO .MWF start prior to left 05/03/21 07/26/23 History release (Adult Low Dose Aspirin) heart cath hydroxychloroquine 200 mg tablet 200 mg PO BID 08/18/21 Unknown History albuterol sulfate 90 mcg/actuation 2 inh inhalation Q6H PRN shortness 07/08/22 Unknown History aerosol inhaler of breath or wheezing levothyroxine 75 mcg tablet 75 mcg PO DAILY 07/08/22 08/09/23 History rosuvastatin 5 mg tablet See Rx Instructions .Route 03/01/23 Unknown Rx .COMPLEX #45 tabs amiodarone 100 mg tablet See Rx Instructions .Route 03/05/23 08/09/23 Rx .COMPLEX #90 tabs folic acid 1 mg tablet 1 mg PO DAILY PRN pt. unsure 09/24/23 Unknown History omeprazole magnesium 20 mg 20 mg PO DAILY PRN heartburn 09/24/23 Unknown History tablet,delayed release (Prilosec OTC) sertraline 25 mg tablet 25 mg PO DAILY anxiety 09/24/23 Unknown History Allergy/AdvReac Type Severity Reaction Status Date / Time simvastatin AdvReac Unknown Other Verified 09/24/23 10:24 atorvastatin calcium (From AdvReac Other Verified 09/24/23 10:24 Lipitor) Family History Mother Diabetes Father Cancer CAD (coronary artery disease) Sister No problems noted. Surgical History History of appendectomy History of cardiac catheterization History of cataract extraction History of cholecystectomy History of colonoscopy History of esophageal hernia repair History of esophagogastroduodenoscopy (EGD) History of hysterectomy History of total bilateral knee replacement History of umbilical hernia repair Social History Smoking Status: Never smoker alcohol intake: current substance use type: does not use ROS ROS Narrative Constitutional: Reports fatigue and weakness. No fever. HEENT: Reports systems reviewed and no addt'l complaints, except as documented Respiratory/Chest: No acute shortness of breath or respiratory distress or wheezing. CVS: No chest pain, pressure or tightness. CAD but no stent. Follows Dr. Ellsworth. Gastrointestinal: Denies coffee ground emesis, hematemesis or vomiting. Hematochezia. Rest as described in HPI Genitourinary: Denies burning urination or new urinary tract symptoms Musculoskeletal: Denies acute joint pain or limited range of motion. No acute injury Neurologic: Denies seizure-like symptoms. skin: No ulcer. No rash Endocrinology: Reports systems reviewed and no addt'l complaints, except as documented Hematologic/Lymphatic: Reports systems reviewed and no addt'l complaints, except as documented Rest 14 ROS are negative except as mentioned in HPI Vital Signs Vital Signs Vital Signs: 06/27/24 15:30 06/27/24 17:27 06/27/24 18:48 Temperature 98 F Temperature Source Temporal Pulse Rate 66 55 L 59 L Respiratory Rate 16 18 19 H Blood Pressure 164/78 H 166/74 H 174/88 H Blood Pressure Mean 106 104 116 Pulse Ox 98 98 95 Oxygen Delivery Method Room Air Room Air Room Air 06/27/24 20:00 06/27/24 22:00 06/28/24 00:00 Temperature Temperature Source Pulse Rate 76 59 L 55 L Respiratory Rate 21 H 18 18 Blood Pressure 139/62 H 146/77 H 142/70 H Blood Pressure Mean 87 100 94 Pulse Ox 92 95 93 Oxygen Delivery Method Room Air 06/28/24 00:33 06/28/24 00:45 06/28/24 01:00 Temperature Temperature Source Pulse Rate 55 L 58 L Respiratory Rate 19 H 18 Blood Pressure 136/69 H Blood Pressure Mean 88 Pulse Ox 92 93 Oxygen Delivery Method 06/28/24 01:15 06/28/24 01:30 06/28/24 01:45 Temperature Temperature Source Pulse Rate 56 L 60 54 L Respiratory Rate 19 H 16 14 Blood Pressure 124/55 H Blood Pressure Mean 76 Pulse Ox 93 94 93 Oxygen Delivery Method Room Air 06/28/24 02:00 06/28/24 02:00 06/28/24 02:15 Temperature Temperature Source Pulse Rate 55 L 55 L Respiratory Rate 20 H 15 Blood Pressure 121/55 H 121/55 H Blood Pressure Mean 77 75 Pulse Ox 94 95 Oxygen Delivery Method Room Air 06/28/24 02:30 06/28/24 02:45 06/28/24 04:00 Temperature Temperature Source Pulse Rate 59 L 56 L 68 Respiratory Rate 23 H 19 H 20 H Blood Pressure 133/70 H 134/59 H Blood Pressure Mean 87 84 Pulse Ox 95 93 95 Oxygen Delivery Method Room Air Room Air 06/28/24 06:00 06/28/24 07:59 06/28/24 08:07 Temperature 98.2 F Temperature Source Pulse Rate 55 L 56 L 57 L Respiratory Rate 17 17 16 Blood Pressure 126/68 H 121/61 H 122/61 H Blood Pressure Mean 87 81 81 Pulse Ox 93 95 95 Oxygen Delivery Method Room Air Room Air Weight Weight: 159 lb 9.6 oz Body Mass Index (BMI) 27.3 Physical Exam Narrative General: Alert, Oriented x3, Cooperative HEENT: Atraumatic, PERRLA, EOMI, Normocephalic Oral: Oral mucosa dry. No Gingival or Mucosal Lesions/ Ulcerations Neck: Supple, No JVD, Negative Carotid Bruits Chest wall/Lungs: Air entry diminished in bilateral lung bases. No crepitation/rhonchi Cardiovascular: Regular rate, Regular Rhythm, Normal S1, Normal S2, No M/G/R Abdomen: Bowel Sounds Present, Soft, mild tenderness present over left upper and lower quadrant. No palpable mass. Liver not enlarged. : No dysuria. No renal angle tenderness. No suprapubic tenderness. Extremities: No edema, Capillary Refill Less than 3 Seconds Skin: No rashes, No breakdown Musculoskeletal: No Tenderness to Palpation of Joints or Extremities Neurological: Cranial nerves II-XII grossly intact, DTR 2+/4. No acute focal neurological deficit. Psych/Mental Status: Normal Affect, Appropriate. Results Lab / Micro Data 06/28/24 13:30 06/28/24 08:43 Labs: Laboratory Results - last 24 hr 06/27/24 17:14: WBC 11.8 H, RBC 3.59 L, Hgb 12.0, Hct 36.4 L, MCV 101.4 H, MCH 33.4 H, MCHC 33.0, RDW Std Deviation 47.0 H, RDW Coeff of Braeden 12.6, Plt Count 166, MPV 11.0, Immature Gran % (Auto) 0.400, Neut % (Auto) 73.6 H, Lymph % (Auto) 14.1 L, Warren % (Auto) 9.8, Eos % (Auto) 1.4, Baso % (Auto) 0.7, Absolute Neuts (auto) 8.7 H, Absolute Lymphs (auto) 1.67, Nucleated RBC % 0, PT 12.8, INR 1.0, APTT 26.8, Sodium Cancelled, Potassium Cancelled, Chloride Cancelled, Carbon Dioxide Cancelled, Anion Gap Cancelled, BUN Cancelled, Creatinine Cancelled, Estim Creat Clear Calc Cancelled, Est GFR (MDRD) Af Amer Cancelled, Est GFR (MDRD) Non-Af Cancelled, BUN/Creatinine Ratio Cancelled, Glucose Cancelled, Calcium Cancelled, Total Bilirubin Cancelled, AST Cancelled, ALT Cancelled, Alkaline Phosphatase Cancelled, Total Protein Cancelled, Albumin Cancelled, Globulin Cancelled, Albumin/Globulin Ratio Cancelled 06/27/24 18:08: Urine Color Yellow, Urine Clarity Sl. Cloudy, Urine pH 6.0, Ur Specific Bernice 1.015, Urine Protein 15 H, Urine Glucose (UA) Normal, Urine Ketones Negative, Urine Occult Blood 150 H, Urine Nitrite Positive H, Urine Bilirubin Negative, Urine Urobilinogen Normal, Ur Leukocyte Esterase 500 H, Urine RBC 0-5 SEEN, Urine WBC 5-10 SEEN, Ur Squamous Epith Cells 0 SEEN, Urine Bacteria 2+, Urine Mucus 0 SEEN 06/27/24 18:15: Sodium 137, Potassium 4.4, Chloride 104, Carbon Dioxide 24.0, Anion Gap 9, BUN 14, Creatinine 0.87, Estim Creat Clear Calc 44.43, Est GFR (MDRD) Af Amer 79, Est GFR (MDRD) Non-Af 65, BUN/Creatinine Ratio 16.0, Glucose 113 H, Calcium 9.8, Total Bilirubin 0.80, AST 47 H, ALT 45, Alkaline Phosphatase 67, Troponin I High Sens 5, Total Protein 7.8, Albumin 3.9, Globulin 3.9, Albumin/Globulin Ratio 1.0 06/27/24 21:26: Lactic Acid 1.4 06/27/24 21:32: WBC 11.7 H, RBC 4.43, Hgb 14.6, Hct 43.6, MCV 98.4, MCH 33.0 H, MCHC 33.5, RDW Std Deviation 43.9, RDW Coeff of Braeden 12.1, Plt Count 192, MPV 10.3 Micro: Microbiology 06/27/24 18:33 Stool Stool Occult Blood ([facility]) - Final Occult Blood Positive Imaging Radiology Impression Abdomen/Pelvis CT 06/27/24 18:32 IMPRESSION: Diverticular changes of the distal descending and sigmoid colon findings consistent with mild acute diverticulitis of the sigmoid without peridiverticular abscess. Cannot definitively exclude presence of intraluminal hemorrhage within the sigmoid versus previously ingested oral contrast Recommend clinical correlation and further assessment with radionuclide tagged red blood cell study if clinically warranted. Electronically Signed: Ernie Whipple MD at 19:52 EDT , Assessment & Plan Assessment/Plan (1) GI bleed: (2) Acute colitis: PLAN: Plan This is a 85-year-old female being admitted for abdominal pain diarrhea with hematochezia. 1. Subacute abdominal pain most likely due to left-sided colitis/diverticulitis: Patient is being admitted in the ICU as PCU status. CT abdomen individually reviewed. It shows diverticular changes of distal descending and sigmoid colon with mild acute diverticulitis of the sigmoid without peridiverticular abscess. On my review, found stool/fecal matter over ascending colon. Stool for enteric panel and C. difficile ordered. Started on IV Zosyn. Patient has leukocytosis with mainly neutrophils. GI consulted for colonoscopy. 2. Lower GI bleed most likely diverticular bleed/colitis: Patient last bleeding was, hematochezia in the morning today. H&H 14.5/43.4.Stool for occult blood positive. Rest as mentioned above. 3. Mild to moderate nonobstructive coronary artery disease: Patient follows Dr. Murguia. She is on aspirin every other day. Her last stress test and cardiac cath was April 2021. Her other chronic cardiac conditions include history of months SVT. 4. Hypertension: Blood pressure is in normal range. SBP in 120s. Hold WPL. 5. Dyslipidemia: Patient on rosuvastatin continued. DVT prophylaxis: Pharmacological prophylaxis contraindicated. Bilateral SCDs. Living will/advanced directive/end of life care: Patient does have living will or advanced directive. Daughter present in ICU Mrs. Kristina Arana is power of carpenter rough for health. After discussion of benefits/risks procedures involved with full code, DNR CC arrest and DNR CC, the patient opted for DNR CC with arrest Patient doesn't want artificial life support including intubation, tube feed, ventilator and/chest compression, central venous catheter, vasopressor and DC shock if needed Total time spent in [id number] encounter in discussion of advanced directive 17 minutes. Clinical Impression(s) from Imaging Studies Abdomen/Pelvis CT 06/27/24 18:32 IMPRESSION: Diverticular changes of the distal descending and sigmoid colon findings consistent with mild acute diverticulitis of the sigmoid without peridiverticular abscess. Cannot definitively exclude presence of intraluminal hemorrhage within the sigmoid versus previously ingested oral contrast Recommend clinical correlation and further assessment with radionuclide tagged red blood cell study if clinically warranted. Microbiology Past 72 Hours 06/27/24 18:33 Stool Stool Occult Blood ([facility]) - Final Occult Blood Positive Laboratory Results 06/27/24 17:14: WBC 11.8 H, RBC 3.59 L, Hgb 12.0, Hct 36.4 L, MCV 101.4 H, MCH 33.4 H, MCHC 33.0, RDW Std Deviation 47.0 H, RDW Coeff of Braeden 12.6, Plt Count 166, MPV 11.0, Immature Gran % (Auto) 0.400, Neut % (Auto) 73.6 H, Lymph % (Auto) 14.1 L, Warren % (Auto) 9.8, Eos % (Auto) 1.4, Baso % (Auto) 0.7, Absolute Neuts (auto) 8.7 H, Absolute Lymphs (auto) 1.67, Nucleated RBC % 0, PT 12.8, INR 1.0, APTT 26.8, Blood Type A POSITIVE, Antibody Screen NEGATIVE 06/27/24 18:08: Urine Color Yellow, Urine Clarity Sl. Cloudy, Urine pH 6.0, Ur Specific Bernice 1.015, Urine Protein 15 H, Urine Glucose (UA) Normal, Urine Ketones Negative, Urine Occult Blood 150 H, Urine Nitrite Positive H, Urine Bilirubin Negative, Urine Urobilinogen Normal, Ur Leukocyte Esterase 500 H, Urine RBC 0-5 SEEN, Urine WBC 5-10 SEEN, Ur Squamous Epith Cells 0 SEEN, Urine Bacteria 2+, Urine Mucus 0 SEEN 06/27/24 18:15: Sodium 137, Potassium 4.4, Chloride 104, Carbon Dioxide 24.0, Anion Gap 9, BUN 14, Creatinine 0.87, Estim Creat Clear Calc 44.43, Est GFR (MDRD) Af Amer 79, Est GFR (MDRD) Non-Af 65, BUN/Creatinine Ratio 16.0, Glucose 113 H, Calcium 9.8, Total Bilirubin 0.80, AST 47 H, ALT 45, Alkaline Phosphatase 67, Troponin I High Sens 5, Total Protein 7.8, Albumin 3.9, Globulin 3.9, Albumin/Globulin Ratio 1.0 06/27/24 21:26: Lactic Acid 1.4 06/27/24 21:32: WBC 11.7 H, RBC 4.43, Hgb 14.6, Hct 43.6, MCV 98.4, MCH 33.0 H, MCHC 33.5, RDW Std Deviation 43.9, RDW Coeff of Braeden 12.1, Plt Count 192, MPV 10.3 06/28/24 08:43: WBC 17.0 H, RBC 4.75, Hgb 15.8 H, Hct 46.1, MCV 97.1, MCH 33.3 H, MCHC 34.3, RDW Std Deviation 43.9, RDW Coeff of Braeden 12.4, Plt Count 218, MPV 11.0, Immature Gran % (Auto) 0.400, Neut % (Auto) 83.8 H, Lymph % (Auto) 8.6 L, Warren % (Auto) 6.8, Eos % (Auto) 0.0, Baso % (Auto) 0.4, Absolute Neuts (auto) 14.3 H, Absolute Lymphs (auto) 1.46, Nucleated RBC % 0, Sodium 138, Potassium 4.4, Chloride 106, Carbon Dioxide 27.0, Anion Gap 5, BUN 10, Creatinine 0.82, Estim Creat Clear Calc 47.14, Est GFR (MDRD) Af Amer 85, Est GFR (MDRD) Non-Af 71, BUN/Creatinine Ratio 12.3, Glucose 126 H, Calcium 9.2, Total Bilirubin 1.00, AST 39 H, ALT 39, Alkaline Phosphatase 53, Total Protein 7.1, Albumin 3.4, Globulin 3.7, Albumin/Globulin Ratio 0.9 06/28/24 13:30: Hgb 14.5, Hct 43.5 Charges/Coding Visit Charges Inpatient E&M: 99588 Init Hosp L3 Procedures Hospitalists Procedures: 13622 Advncd Care Plan 30 Min
[2024-06-28 08:49] LABS: Absolute Lymphocyte Count 1.46 X10^3/uL (0.83-4.51); Absolute Neutrophil Count 14.3 X10^3/uL (2.0-7.7); Basophil# 0.06 X10^3/uL; Basophil% 0.4 % (0-1); Hematocrit 46.1 % (37-47); Hemoglobin 15.8 g/dL (12.0-15.0); Lymphocyte # 1.46 X10^3/ul (0.83-4.51); Lymphocyte % 8.6 % (19-41); Mean Corp Hgb Conc 34.3 g/dL (32-36); Mean Corpuscular Hgb 33.3 pg (27.0-32.0); Mean Corpuscular Volume 97.1 fL (81-99); Monocyte# 1.15 X10^3/uL; Monocyte% 6.8 % (0-10); NRBC Flagged by Analyzer 0 % (0-5); Neutrophil # 14.29 X10^3/uL (2.7-7.7); Neutrophil % 83.8 % (47-70); Platelet Count 218 K/mm3 (150-450); RBC Distribution Width CV 12.4 % (11.6-14.6); RBC Distribution Width SD 43.9 fl (35.1-43.9); Red Blood Count 4.75 M/mm3 (4.2-5.4)
[2024-06-28 09:08] LABS: ALB/GLOB Ratio 0.9 RATIO (0.9-2.4); AST(SGOT) 39 U/L (15-37); Alanine Aminotransfer ALT/SGPT 39 U/L (13-56); Albumin, Serum 3.4 g/dL (3.2-5.0); Alkaline Phosphatase 53 U/L (45-117); Anion Gap 5 (5-15); BUN 10 mg/dL (7-18); BUN/Creat Ratio 12.3 RATIO (10-20); Calcium,Total 9.2 mg/dL (8.5-10.1); Chloride 106 mmol/L (98-107); Creatinine, Serum 0.82 mg/dL (0.55-1.02); EST Glomerular Filtration Rate 71 mL/min (>60); Est Glom Filt Rate - Afr Amer 85 mL/min (>60); Estimated Creatinine Clearance 47.14 ml/min; Globulin 3.7 g/dL (2.2-4.2); Glucose 126 mg/dL (74-106); Potassium 4.4 mmol/L (3.5-5.1); Protein, Total 7.1 g/dL (6.4-8.2); Sodium Level 138 mmol/L (136-145)
[2024-06-28] MEDS: Pantoprazole Sodium 40 MG in 0.9% Normal Saline (100mL MB+) 100 ML 330 MG IV ×2 (10:13→21:03)
[2024-06-28] MEDS: 0.9% Normal Saline (1000mL) 1,000 ML 75 ML IV ×2 (10:13→23:45)
[2024-06-28] MEDS: Piperacil/Tazobactam 3.375 GM in 0.9% Normal Saline (50mL MB+) 50 ML IV ×2 (11:33→22:14)
--- NOTE | 2024-06-28 11:59 | CHAPLAIN ---
Type of Pastoral Visit _x__ Initial Visit ___ Follow-up Visit ___ On-call Visit ___ General Patient Visit ___ Spiritual Assessment ___ Family Conference ___ Bereavement ___ Rapid Response ___ Code Blue ___ Other (describe below) Pastoral Care Referral From _x__ Patient ___ Family ___ Nurse ___ Physician ___ Mechanical Operator ___ Curtain Cleaner ___ Other (describe below) Sacrament/Intervention _x__ Active listening ___ Anointing ___ Gnosticist ___ Bereavement ___ Communion ___ Maddi exploration ___ _x__ Life review _x__ Prayer ___ Reconciliation ___ Sacrament of Sick _x__ Supportive presence ___ Wedding ___ Other (describe below) Pastoral Comments patient is resting quietly in bed; daughter is in the room; daughter explains the situation and that the patient just had a birthday yesterday; pt adds to the situation and states how difficult it is to be in the hospital when I have so many plans for today and this week; pt acknowledges good support of family and friends; pt welcomes a prayer for support at this time and the opportunity for a visit
[2024-06-28 14:03] LABS: Hematocrit 43.5 % (37-47); Hemoglobin 14.5 g/dL (12.0-15.0)
[2024-06-28] MEDS: Bisacodyl 5 MG Tablet 20 MG PO (14:16)
[2024-06-28] MEDS: Polyethylene Glycol 3350 BOWEL PREP PO (16:05)
--- NOTE | 2024-06-28 16:32 | CON.PCM.GI_ITS ---
HPI Consult Data Date of Consult: 06/28/24 HPI Narrative Reason for Consultation: Lower GI bleed HPI Narrative: DEBBY TOVAR, is a 89 F presented to the ED with low blood pressure, concern for GI bleed. Patient states she has had low blood pressure at home was 80s over 60s, she notes she feels lightheaded and nauseous. She said the same thing happened 6 weeks ago and she was diagnosed with acute diverticulitis. She was on 2 weeks of antibiotics and got better. Notes bowel movements and dry heaves for the last hour. Per the patient's daughter and patient was attending use of bathroom but could not she became lightheaded dizzy pale and warm. This resolved however daughter notes over last 3 to 4 hours patient's had multiple large bloody bowel movements. Her laboratory analysis today shows a white blood cell count of 17,000, hemoglobin of 15.8, platelet count of 218. Her BUN is 10, creatinine 0.82. Her total bili is 1, AST of 39, ALT of 39, alkaline phosphatase of 53. Her repeat hemoglobin is 14.5. CT scan abdomen pelvis on 06/27/2024 : diverticular changes of the distal descending and sigmoid colon findings consistent with mild acute diverticulitis of the sigmoid without peridiverticular abscess. Cannot definitively exclude presence of intraluminal hemorrhage within the sigmoid versus previously ingested oral contrast Recommend clinical correlation and further assessment with radionuclide tagged red blood cell study if clinically warranted. 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 Cardiology follow-up encounter Depressive disorder Essential hypertension Generalized osteoarthrosis, unspecified site GERD (gastroesophageal reflux disease) Hiatal hernia High cholesterol History of diverticulitis History of echocardiogram History of left heart catheterization (05/19/21) History of stress test Hyperlipidemia Hypertension Hypothyroidism Minor surgery performed Non-smoker Osteopenia PONV (postoperative nausea and vomiting) Rheumatoid arthritis Spinal stenosis Thyroid disease Wears glasses Home Medications ?Medication ?Instructions ?Recorded ?Last Taken ?Type metoprolol succinate 25 mg 25 mg PO DAILY 04/14/21 08/09/23 08:00 History tablet,extended release 24 hr mometasone-formoterol HFA 100 1 puff inhalation BID PRN cough 04/14/21 Unknown History mcg-5 mcg/actuation aerosol inhaler multivitamin 1 tab PO DAILY 04/14/21 Unknown History ramipril 5 mg capsule 5 mg PO DAILY 04/14/21 08/09/23 History aspirin 81 mg tablet,delayed 81 mg PO .MWF start prior to left 05/03/21 07/26/23 History release (Adult Low Dose Aspirin) heart cath hydroxychloroquine 200 mg tablet 200 mg PO BID 08/18/21 Unknown History albuterol sulfate 90 mcg/actuation 2 inh inhalation Q6H PRN shortness 07/08/22 Unknown History aerosol inhaler of breath or wheezing levothyroxine 75 mcg tablet 75 mcg PO DAILY 07/08/22 08/09/23 History rosuvastatin 5 mg tablet See Rx Instructions .Route 03/01/23 Unknown Rx .COMPLEX #45 tabs amiodarone 100 mg tablet See Rx Instructions .Route 03/05/23 08/09/23 Rx .COMPLEX #90 tabs folic acid 1 mg tablet 1 mg PO DAILY PRN pt. unsure 09/24/23 Unknown History omeprazole magnesium 20 mg 20 mg PO DAILY PRN heartburn 09/24/23 Unknown History tablet,delayed release (Prilosec OTC) sertraline 25 mg tablet 25 mg PO DAILY anxiety 09/24/23 Unknown History Allergy/AdvReac Type Severity Reaction Status Date / Time simvastatin AdvReac Unknown Other Verified 09/24/23 10:24 atorvastatin calcium (From AdvReac Other Verified 09/24/23 10:24 Lipitor) Family History Mother Diabetes Father Cancer CAD (coronary artery disease) Sister No problems noted. Surgical History History of appendectomy History of cardiac catheterization History of cataract extraction History of cholecystectomy History of colonoscopy History of esophageal hernia repair History of esophagogastroduodenoscopy (EGD) History of hysterectomy History of total bilateral knee replacement History of umbilical hernia repair Social History Smoking Status: Never smoker alcohol intake: current substance use type: does not use ROS ROS Narrative Constitutional: Reports fatigue and weakness. No fever. HEENT: Reports systems reviewed and no addt'l complaints, except as documented Respiratory/Chest: No acute shortness of breath or respiratory distress or wheezing. CVS: No chest pain, pressure or tightness. CAD but no stent. Follows Dr. Ellsworth. Gastrointestinal: Denies coffee ground emesis, hematemesis or vomiting. Hematochezia. Rest as described in HPI Genitourinary: Denies burning urination or new urinary tract symptoms Musculoskeletal: Denies acute joint pain or limited range of motion. No acute injury Neurologic: Denies seizure-like symptoms. skin: No ulcer. No rash Endocrinology: Reports systems reviewed and no addt'l complaints, except as documented Hematologic/Lymphatic: Reports systems reviewed and no addt'l complaints, except as documented Rest 14 ROS are negative except as mentioned in HPI Physical Exam Narrative General: Alert, Oriented x3, Cooperative HEENT: Atraumatic, PERRLA, EOMI, Normocephalic Oral: Oral mucosa dry. No Gingival or Mucosal Lesions/ Ulcerations Neck: Supple, No JVD, Negative Carotid Bruits Chest wall/Lungs: Air entry diminished in bilateral lung bases. No crepitation/rhonchi Cardiovascular: Regular rate, Regular Rhythm, Normal S1, Normal S2, No M/G/R Abdomen: Bowel Sounds Present, Soft, mild tenderness present over left upper and lower quadrant. No palpable mass. Liver not enlarged. : No dysuria. No renal angle tenderness. No suprapubic tenderness. Extremities: No edema, Capillary Refill Less than 3 Seconds Skin: No rashes, No breakdown Musculoskeletal: No Tenderness to Palpation of Joints or Extremities Neurological: Cranial nerves II-XII grossly intact, DTR 2+/4. No acute focal neurological deficit. Psych/Mental Status: Normal Affect, Appropriate. Lab / Micro Data 06/28/24 13:30 06/28/24 08:43 Labs: Laboratory Results - last 24 hr 06/27/24 17:14: WBC 11.8 H, RBC 3.59 L, Hgb 12.0, Hct 36.4 L, MCV 101.4 H, MCH 33.4 H, MCHC 33.0, RDW Std Deviation 47.0 H, RDW Coeff of Braeden 12.6, Plt Count 166, MPV 11.0, Immature Gran % (Auto) 0.400, Neut % (Auto) 73.6 H, Lymph % (Auto) 14.1 L, [place] % (Auto) 9.8, Eos % (Auto) 1.4, Baso % (Auto) 0.7, Absolute Neuts (auto) 8.7 H, Absolute Lymphs (auto) 1.67, Nucleated RBC % 0, PT 12.8, INR 1.0, APTT 26.8, Sodium Cancelled, Potassium Cancelled, Chloride Cancelled, Carbon Dioxide Cancelled, Anion Gap Cancelled, BUN Cancelled, Creatinine Cancelled, Estim Creat Clear Calc Cancelled, Est GFR (MDRD) Af Amer Cancelled, Est GFR (MDRD) Non-Af Cancelled, BUN/Creatinine Ratio Cancelled, Glucose Cancelled, Calcium Cancelled, Total Bilirubin Cancelled, AST Cancelled, ALT Cancelled, Alkaline Phosphatase Cancelled, Total Protein Cancelled, Albumin Cancelled, Globulin Cancelled, Albumin/Globulin Ratio Cancelled, Blood Type A POSITIVE, Antibody Screen NEGATIVE 06/27/24 18:08: Urine Color Yellow, Urine Clarity Sl. Cloudy, Urine pH 6.0, Ur Specific [place] 1.015, Urine Protein 15 H, Urine Glucose (UA) Normal, Urine Ketones Negative, Urine Occult Blood 150 H, Urine Nitrite Positive H, Urine Bilirubin Negative, Urine Urobilinogen Normal, Ur Leukocyte Esterase 500 H, Urine RBC 0-5 SEEN, Urine WBC 5-10 SEEN, Ur Squamous Epith Cells 0 SEEN, Urine Bacteria 2+, Urine Mucus 0 SEEN 06/27/24 18:15: Sodium 137, Potassium 4.4, Chloride 104, Carbon Dioxide 24.0, Anion Gap 9, BUN 14, Creatinine 0.87, Estim Creat Clear Calc 44.43, Est GFR (MDRD) Af Amer 79, Est GFR (MDRD) Non-Af 65, BUN/Creatinine Ratio 16.0, Glucose 113 H, Calcium 9.8, Total Bilirubin 0.80, AST 47 H, ALT 45, Alkaline Phosphatase 67, Troponin I High Sens 5, Total Protein 7.8, Albumin 3.9, Globulin 3.9, Albumin/Globulin Ratio 1.0 06/27/24 21:26: Lactic Acid 1.4 06/27/24 21:32: WBC 11.7 H, RBC 4.43, Hgb 14.6, Hct 43.6, MCV 98.4, MCH 33.0 H, MCHC 33.5, RDW Std Deviation 43.9, RDW Coeff of Braeden 12.1, Plt Count 192, MPV 10.3 06/28/24 08:43: WBC 17.0 H, RBC 4.75, Hgb 15.8 H, Hct 46.1, MCV 97.1, MCH 33.3 H , MCHC 34.3, RDW Std Deviation 43.9, RDW Coeff of Braeden 12.4, Plt Count 218, MPV 11.0, Immature Gran % (Auto) 0.400, Neut % (Auto) 83.8 H, Lymph % (Auto) 8.6 L, [place] % (Auto) 6.8, Eos % (Auto) 0.0, Baso % (Auto) 0.4, Absolute Neuts (auto) 14.3 H, Absolute Lymphs (auto) 1.46, Nucleated RBC % 0, Sodium 138, Potassium 4.4, Chloride 106, Carbon Dioxide 27.0, Anion Gap 5, BUN 10, Creatinine 0.82, Estim Creat Clear Calc 47.14, Est GFR (MDRD) Af Amer 85, Est GFR (MDRD) Non-Af 71, BUN/Creatinine Ratio 12.3, Glucose 126 H, Calcium 9.2, Total Bilirubin 1.00, AST 39 H, ALT 39, Alkaline Phosphatase 53, Total Protein 7.1, Albumin 3.4, Globulin 3.7, Albumin/Globulin Ratio 0.9 06/28/24 13:30: Hgb 14.5, Hct 43.5 Micro: Microbiology 06/27/24 18:33 Stool Stool Occult Blood (KELSEY) - Final Occult Blood Positive Imaging Radiology Impression Abdomen/Pelvis CT 06/27/24 18:32 IMPRESSION: Diverticular changes of the distal descending and sigmoid colon findings consistent with mild acute diverticulitis of the sigmoid without peridiverticular abscess. Cannot definitively exclude presence of intraluminal hemorrhage within the sigmoid versus previously ingested oral contrast Recommend clinical correlation and further assessment with radionuclide tagged red blood cell study if clinically warranted. Electronically Signed: Ernie Whipple MD at 19:52 EDT , Assessment & Plan Assessment/Plan (1) GI bleed: (2) Acute colitis: PLAN: Plan This is a 85-year-old female being admitted for abdominal pain diarrhea with hematochezia. The differential diagnosis is ischemic colitis, infectious colitis, inflammatory colitis such as inflammatory bowel disease. Typically diverticulitis does not cause lower GI bleeding that is why I suspect that is more ischemic colitis. This is less likely ulcerative colitis. But it is also on the differential diagnosis. She should undergo colonoscopy to evaluate her lower GI tract. She was explained alternatives, risk, benefits include not withstanding bleeding, infection, sepsis, perforation, need of emergent urgent . She have an ASA of 3. Charges/Coding Visit Charges Inpatient E&M: 94025 Init Hosp L3
[2024-06-28] MEDS: Metoprolol(XL)Succ 25 MG Tablet PO (17:16)
[2024-06-28] MEDS: Albuterol 2.5 MG/3 ML VIAL.NEB. INHALATION (19:58)
[2024-06-28] MEDS: Budesonide Respules 0.5 MG/2 ML AMPUL.NEB. INHALATION (19:58)
[2024-06-28] MEDS: proCHLORPERazine 10 MG/2 ML Vial 5 MG IV (21:04)
[2024-06-29] VITALS (18 sets, daily range): BP systolic 99–164; BP diastolic 54–77; PULSE 53–70; RESP 16–26; TEMP 36.1–37; O2SAT 94–99; BMI 27.8
--- NOTE | 2024-06-29 04:00 | EKG12_ITS ---
Test Reason : pre-op Blood Pressure : / mmHG Vent. Rate : 058 BPM Atrial Rate : 058 BPM P-R Int : 202 ms QRS Dur : 074 ms QT Int : 454 ms P-R-T Axes : 075 026 015 degrees QTc Int : 445 ms Sinus bradycardia Otherwise normal ECG Confirmed by CLARISSA MARTINI, TAMMY ([id number]), editorial project manager RUBEN LLANOS ([id number]) on 06/30/2024 10:46:44 AM Referred By: Eric Confirmed By:TAMMY ROMO MD
[2024-06-29 04:28] LABS: Absolute Lymphocyte Count 1.38 X10^3/uL (0.83-4.51); Absolute Neutrophil Count 15.6 X10^3/uL (2.0-7.7); Basophil# 0.04 X10^3/uL; Basophil% 0.2 % (0-1); Hematocrit 43.3 % (37-47); Hemoglobin 14.4 g/dL (12.0-15.0); Lymphocyte # 1.38 X10^3/ul (0.83-4.51); Lymphocyte % 7.5 % (19-41); Mean Corp Hgb Conc 33.3 g/dL (32-36); Mean Corpuscular Hgb 32.8 pg (27.0-32.0); Mean Corpuscular Volume 98.6 fL (81-99); Mean Platelet Vol. 10.9 fl (6.2-12.0); Monocyte# 1.39 X10^3/uL; Monocyte% 7.5 % (0-10); NRBC Flagged by Analyzer 0 % (0-5); Neutrophil # 15.57 X10^3/uL (2.7-7.7); Platelet Count 190 K/mm3 (150-450); RBC Distribution Width CV 12.5 % (11.6-14.6); RBC Distribution Width SD 45.3 fl (35.1-43.9); Red Blood Count 4.39 M/mm3 (4.2-5.4); White Blood Count 18.5 K/mm3 (4.4-11.0)
[2024-06-29 05:02] LABS: Anion Gap 7 (5-15); BUN 8 mg/dL (7-18); BUN/Creat Ratio 11.3 RATIO (10-20); Calcium,Total 8.7 mg/dL (8.5-10.1); Chloride 106 mmol/L (98-107); Creatinine, Serum 0.71 mg/dL (0.55-1.02); EST Glomerular Filtration Rate 83 mL/min (>60); Est Glom Filt Rate - Afr Amer 100 mL/min (>60); Glucose 132 mg/dL (74-106); Potassium 3.4 mmol/L (3.5-5.1); Sodium Level 139 mmol/L (136-145); T4 Free Direct 1.35 ng/dL (0.76-1.46)
[2024-06-29] MEDS: Levothyroxine 75 MCG Tablet PO (06:05)
[2024-06-29] MEDS: Piperacil/Tazobactam 3.375 GM in 0.9% Normal Saline (50mL MB+) 50 ML IV ×3 (06:05→21:27)
--- NOTE | 2024-06-29 07:20 | PCM.PN.HOSP ---
Reason for Visit Reason for Visit: Diagnoses Noninfective gastroenteritis and colitis, unspecified (06/28/24) Gastrointestinal hemorrhage, unspecified (06/28/24) Objective Data Objective Data Vital Signs: Vital Signs Temp Pulse Resp BP Pulse Ox O2 Del Method 97.6 F L 64 18 155/71 H 97 Room Air 06/29/24 04:00 06/29/24 04:00 06/29/24 04:00 06/29/24 04:00 06/29/24 04:00 06/29/24 04:00 Oxygen Delivery Method Room Air Weight: 152 lb 1.903 oz Body Mass Index (BMI) 27.8 Intake & Output: Intake and Output for Last 24 Hours 06/27/24 06/28/24 06/29/24 23:59 23:59 23:59 Intake Total 50 / 50 1270 / 1870 650 / 650 Output Total 100 / 100 Balance 50 / 50 1270 / 1770 550 / 550 Lab / Micro Data 06/29/24 03:54 06/29/24 03:54 Labs: Laboratory Results - last 24 hr 06/27/24 17:14: Blood Type A POSITIVE, Antibody Screen NEGATIVE 06/28/24 08:43: WBC 17.0 H, RBC 4.75, Hgb 15.8 H, Hct 46.1, MCV 97.1, MCH 33.3 H, MCHC 34.3, RDW Std Deviation 43.9, RDW Coeff of Braeden 12.4, Plt Count 218, MPV 11.0, Immature Gran % (Auto) 0.400, Neut % (Auto) 83.8 H, Lymph % (Auto) 8.6 L, [place]cher % (Auto) 6.8, Eos % (Auto) 0.0, Baso % (Auto) 0.4, Absolute Neuts (auto) 14.3 H, Absolute Lymphs (auto) 1.46, Nucleated RBC % 0, Sodium 138, Potassium 4.4, Chloride 106, Carbon Dioxide 27.0, Anion Gap 5, BUN 10, Creatinine 0.82, Estim Creat Clear Calc 47.14, Est GFR (MDRD) Af Amer 85, Est GFR (MDRD) Non-Af 71, BUN/Creatinine Ratio 12.3, Glucose 126 H, Calcium 9.2, Total Bilirubin 1.00, AST 39 H, ALT 39, Alkaline Phosphatase 53, Total Protein 7.1, Albumin 3.4, Globulin 3.7, Albumin/Globulin Ratio 0.9 06/28/24 13:30: Hgb 14.5, Hct 43.5 06/29/24 03:54: WBC 18.5 H, RBC 4.39, Hgb 14.4, Hct 43.3, MCV 98.6, MCH 32.8 H, MCHC 33.3, RDW Std Deviation 45.3 H, RDW Coeff of Braeden 12.5, Plt Count 190, MPV 10.9, Immature Gran % (Auto) 0.800, Neut % (Auto) 84.0 H, Lymph % (Auto) 7.5 L, [place] % (Auto) 7.5, Eos % (Auto) 0.0, Baso % (Auto) 0.2, Absolute Neuts (auto) 15.6 H, Absolute Lymphs (auto) 1.38, Nucleated RBC % 0, Sodium 139, Potassium 3.4 L, Chloride 106, Carbon Dioxide 26.0, Anion Gap 7, BUN 8, Creatinine 0.71, Estim Creat Clear Calc 45.10, Est GFR (MDRD) Af Amer 100, Est GFR (MDRD) Non-Af 83, BUN/Creatinine Ratio 11.3, Glucose 132 H, Calcium 8.7, TSH 1.600, Free T4 1.35 Micro: Microbiology 06/27/24 18:33 Stool Stool Occult Blood (KELSEY) - Final Occult Blood Positive Physical Exam Narrative Seen and examined Patient having diarrhea because of colon prep solution. It was also blood with clot as per nursing staff. Sinus bradycardia on the school lunch monitor. Blood pressure systolic 155/77. Physical exam General: Alert, Oriented x3, Cooperative HEENT: Atraumatic, PERRLA, EOMI, Normocephalic Oral: Oral mucosa dry. No Gingival or Mucosal Lesions/ Ulcerations Neck: Supple, No JVD, Negative Carotid Bruits Chest wall/Lungs: Air entry diminished in bilateral lung bases. No crepitation/rhonchi Cardiovascular: Regular rate, Regular Rhythm, Normal S1, Normal S2, No M/G/R Abdomen: Bloody bowel movement. Bowel Sounds Present, Soft, mild tenderness present over left upper quadrant. No rebound tenderness. Liver not enlarged. : No dysuria. No renal angle tenderness. No suprapubic tenderness. Extremities: No edema, Capillary Refill Less than 3 Seconds Skin: No rashes, No breakdown Musculoskeletal: No Tenderness to Palpation of Joints or Extremities Neurological: Cranial nerves II-XII grossly intact, DTR 2+/4. No acute focal neurological deficit. Psych/Mental Status: Normal Affect, Appropriate. Assessment & Plan Assessment/Plan (1) GI bleed: (2) Acute colitis: PLAN: Plan This is a 85-year-old female being admitted for abdominal pain diarrhea with hematochezia. 1. Subacute abdominal pain most likely due to left-sided colitis/diverticulitis: Patient is being admitted in the ICU as PCU status. CT abdomen individually reviewed. It shows diverticular changes of distal descending and sigmoid colon with mild acute diverticulitis of the sigmoid without peridiverticular abscess. On my review, found stool/fecal matter over ascending colon. Stool for enteric panel and C. difficile ordered. Started on IV Zosyn. Patient has leukocytosis with mainly neutrophils. GI consulted for colonoscopy. 06/29: Afebrile. Blood pressure systolic 150s. Patient was dizzy lightheaded and low blood pressure in 80s at home before coming to ED. Leukocytosis predominantly neutrophils, getting worse from 11,800-18,500. Continue IV Zosyn. Stool for occult blood positive. Stool for enteric bacteriology panel and C. difficile pending. Patient evaluated by plastics engineering teacher and plan for colonoscopy today. Differential are left-sided inflammatory colitis, infectious colitis, ischemic colitis/ulcerative colitis. 2. Lower GI bleed most likely diverticular bleed/colitis: Patient last bleeding was, hematochezia in the morning today. H&H 14.5/43.4.Stool for occult blood positive. Rest as mentioned above. 06/29: Hemoglobin did not show major drop, above 14 g%. Platelet count normal. 3. Mild to moderate nonobstructive coronary artery disease: Patient follows scraper meat Dr. Forrester. She is on aspirin every other day. Hold baby aspirin. Her last stress test and cardiac cath was April 2021. Her other chronic cardiac conditions include history of months SVT. 4. Hypertension: Patient stated she was hypotensive with dizzy and lightheadedness at home but has recovered now. Blood pressure is in normal range. SBP in 120s. Hold WPL. 5. Dyslipidemia: Patient on rosuvastatin continued. DVT prophylaxis: Pharmacological prophylaxis contraindicated. Bilateral SCDs. Living will/advanced directive/end of life care: Patient does have living will or advanced directive. Daughter present in ICU Mrs. Kristina Arana is power of transactional attorney for health. After discussion of benefits/risks procedures involved with full code, DNR CC arrest and DNR CC, the patient opted for DNR CC with arrest Patient doesn't want artificial life support including intubation, tube feed, ventilator and/chest compression, central venous catheter, vasopressor and DC shock if needed Total time spent in [id number] encounter in discussion of advanced directive 17 minutes. Clinical Impression(s) from Imaging Studies Abdomen/Pelvis CT 06/27/24 18:32 IMPRESSION: Diverticular changes of the distal descending and sigmoid colon findings consistent with mild acute diverticulitis of the sigmoid without peridiverticular abscess. Cannot definitively exclude presence of intraluminal hemorrhage within the sigmoid versus previously ingested oral contrast Recommend clinical correlation and further assessment with radionuclide tagged red blood cell study if clinically warranted. Microbiology Past 72 Hours 06/27/24 18:33 Stool Stool Occult Blood (KELSEY) - Final Occult Blood Positive Laboratory Results 06/27/24 17:14: WBC 11.8 H, RBC 3.59 L, Hgb 12.0, Hct 36.4 L, MCV 101.4 H, MCH 33.4 H, MCHC 33.0, RDW Std Deviation 47.0 H, RDW Coeff of Braeden 12.6, Plt Count 166, MPV 11.0, Immature Gran % (Auto) 0.400, Neut % (Auto) 73.6 H, Lymph % (Auto) 14.1 L, Letcher % (Auto) 9.8, Eos % (Auto) 1.4, Baso % (Auto) 0.7, Absolute Neuts (auto) 8.7 H, Absolute Lymphs (auto) 1.67, Nucleated RBC % 0, PT 12.8, INR 1.0, APTT 26.8, Blood Type A POSITIVE, Antibody Screen NEGATIVE 06/27/24 18:08: Urine Color Yellow, Urine Clarity Sl. Cloudy, Urine pH 6.0, Ur Specific [place] 1.015, Urine Protein 15 H, Urine Glucose (UA) Normal, Urine Ketones Negative, Urine Occult Blood 150 H, Urine Nitrite Positive H, Urine Bilirubin Negative, Urine Urobilinogen Normal, Ur Leukocyte Esterase 500 H, Urine RBC 0-5 SEEN, Urine WBC 5-10 SEEN, Ur Squamous Epith Cells 0 SEEN, Urine Bacteria 2+, Urine Mucus 0 SEEN 06/27/24 18:15: Sodium 137, Potassium 4.4, Chloride 104, Carbon Dioxide 24.0, Anion Gap 9, BUN 14, Creatinine 0.87, Estim Creat Clear Calc 44.43, Est GFR (MDRD) Af Amer 79, Est GFR (MDRD) Non-Af 65, BUN/Creatinine Ratio 16.0, Glucose 113 H, Calcium 9.8, Total Bilirubin 0.80, AST 47 H, ALT 45, Alkaline Phosphatase 67, Troponin I High Sens 5, Total Protein 7.8, Albumin 3.9, Globulin 3.9, Albumin/Globulin Ratio 1.0 06/27/24 21:26: Lactic Acid 1.4 06/27/24 21:32: WBC 11.7 H, RBC 4.43, Hgb 14.6, Hct 43.6, MCV 98.4, MCH 33.0 H, MCHC 33.5, RDW Std Deviation 43.9, RDW Coeff of Braeden 12.1, Plt Count 192, MPV 10.3 06/28/24 08:43: WBC 17.0 H, RBC 4.75, Hgb 15.8 H, Hct 46.1, MCV 97.1, MCH 33.3 H, MCHC 34.3, RDW Std Deviation 43.9, RDW Coeff of Braeden 12.4, Plt Count 218, MPV 11.0, Immature Gran % (Auto) 0.400, Neut % (Auto) 83.8 H, Lymph % (Auto) 8.6 L, [place] % (Auto) 6.8, Eos % (Auto) 0.0, Baso % (Auto) 0.4, Absolute Neuts (auto) 14.3 H, Absolute Lymphs (auto) 1.46, Nucleated RBC % 0, Sodium 138, Potassium 4.4, Chloride 106, Carbon Dioxide 27.0, Anion Gap 5, BUN 10, Creatinine 0.82, Estim Creat Clear Calc 47.14, Est GFR (MDRD) Af Amer 85, Est GFR (MDRD) Non-Af 71, BUN/Creatinine Ratio 12.3, Glucose 126 H, Calcium 9.2, Total Bilirubin 1.00, AST 39 H, ALT 39, Alkaline Phosphatase 53, Total Protein 7.1, Albumin 3.4, Globulin 3.7, Albumin/Globulin Ratio 0.9 06/28/24 13:30: Hgb 14.5, Hct 43.5 Charges/Coding Addendum Addendum: Total time of the visit including total time spent in counseling or coordination of care, (more than 50% of the total time, spent in obtaining medical information from nurses and other ancillary care providers,explaining to the patient about labs, imaging, diagnosis and management of active complex medical conditions), serious complex medical problem including active lower GI bleed, clinical discussion with the plastics engineering teacher, review of labs and imaging is 40 minutes. Visit Charges Inpatient E&M: 51162 Subs Hosp L3
[2024-06-29] MEDS: Albuterol 2.5 MG/3 ML VIAL.NEB. INHALATION ×3 (07:36→18:54)
[2024-06-29] MEDS: Budesonide Respules 0.5 MG/2 ML AMPUL.NEB. INHALATION ×2 (07:36→18:54)
[2024-06-29] MEDS: Amiodarone 200 MG Tablet 100 MG PO (09:16)
[2024-06-29] MEDS: Sertraline 50 MG Tablet 25 MG PO (09:17)
[2024-06-29] MEDS: Pantoprazole Sodium 40 MG in 0.9% Normal Saline (100mL MB+) 100 ML 330 MG IV ×2 (09:17→20:04)
--- NOTE | 2024-06-29 09:31 | CASEMGMT ---
KATHY ROMO Assessment Face to Face with patient for initial transition planning/care coordination assessment. KATHY ROMO introduced self and role at [facility], pt voices understanding. Pt is A&Ox4 and is resting comfortably in bed and is calm. Care providers, pharmacy, and demographics verified. Admitting dx: GI Bleed LACE Strata: 2 PCP: Michael Garcia Specialists: Delmis GILES (RA) Preferred Pharmacy: [facility] Insurance: [facility] A/B, [place] Prescription Benefit: Yes LNOK: Kristina Mercado (Yuriy), Genna Garcia (Yuriy) Living Arrangements: Pt lives alone in a two story home with a FFSU and a ramp to enter ADLs/IADLs: Ind Transportation: Self, daughters. Denies concerns DME: Access to BP Monitor, Cane, and FWW. Denies needs HHC/SNF: Denies Hx or needs Pt?s goal: Home Plan: home no needs. 6-click is 24. Pt states that she plans to Dc home once medically ready and denies the need for HHC, OP Tx, SNF, CCN/pt Link. Pt states that she feels safe with this plan and denies further questions or concerns at this time. Laisha Saucedo RN, CM
--- NOTE | 2024-06-29 13:45 | COLBX_PTH ---
PATIENT: DEBBY TOVAR LOC: PCU U#:[id number] AGE/SX: 89/F ROOM: [facility] RE06/28/[address]: Dr. Nico Reyes MD : [id number] BED: 1 DIS: 07/01/2024 SPEC #: [id number] RECD: 06/29/24 18:32 STATUS: MARZENA HURST #: [id number] CHARLIE: 06/29/24 13:[address]: Ahmet Ribeiro DEPT: SURGICAL PATHOLOGY RECD BY: Isha Quach ENTERED: 06/30/24 07:21 SP TYPE: COLON BX JOYA DR: MD Dr. Nico Hutchinson MD Tissues: Transverse colon Procedures: Surgery Specimen Level IV HEADER OPERATION: Colonoscopy, biopsy PRE-OP DIAGNOSIS: GI bleed, acute colitis TISSUE SUBMITTED: Transverse colon MICROSCOPIC DIAGNOSIS Transverse colon, biopsy: Tubular adenoma. Fragments of colonic mucosa with changes consistent with ischemic colitis. 07/03/2024 MICROSCOPIC DESCRIPTION Slides are reviewed. GROSS DESCRIPTION Received in fixative is one container labeled with the patient's name and designated Transverse colon biopsy. The specimen consists of multiple irregular fragments of light benites soft tissue that in aggregate measure 0.6 x 0.5 x 0.1 cm. The specimen is totally submitted in one cassette. 07/03/2024 TC:5 CPT:04470
--- NOTE | 2024-06-29 14:12 | NURSING ---
patient transferred to endo at this time
[2024-06-29] MEDS: 0.9% Normal Saline (1000mL) 1,000 ML 15 ML IV (15:00)
--- NOTE | 2024-06-29 15:24 | PCM.PRE.AN2 ---
ASA Classification* ASA Classification ASA Classification: 3 Assessment & Plan Anesthesia* Anesthesia Assessment Anesthesia Assessment: Discussed sedation and/or anesthesia options, risks, benefits, and alternatives with patient/parents/legal guardian/POA. Questions invited. The patient/parents/legal guardian/POA seems to understand and agrees to proceed with anesthesia plan. Reviewed the physical assessment, medical history, allergy history and patient home medications list prior to surgery/procedure/anesthetic and documented any changes. Performed airway and anesthesia risk assessments. Anesthesia Type Anesthesia Type: MAC History Source History Obtained from:: Patient and Chart Anesthesia Focused Assessment* Temperature: 97.3 F Pulse Rate: 67 Blood Pressure: 145/69 Respiratory Rate: 20 Pulse Ox: 95 Oxygen Delivery Method: Room Air Airway Assessment Mouth opens: >3 cm Mallampati Score: IV Teeth Condition: Caps/Crowns (Multiple caps. All tight.) Neck Range of motion (ROM): Full ROM Pertinent Findings EKG Pertinent Findings:: June 27, 2024. Sinus rhythm with first-degree AV block with premature atrial complexes with aberrant conduction. Focused Labs Anesthesia Preop lab: CBC WBC 18.5 K/mm3 (4.4-11.0) H 06/29/24 03:54 RBC 4.39 M/mm3 (4.2-5.4) 06/29/24 03:54 Hgb 14.4 g/dL (12.0-15.0) 06/29/24 03:54 Hct 43.3 % (37-47) 06/29/24 03:54 Plt Count 190 K/mm3 (150-450) 06/29/24 03:54 CHEMISTRY Potassium 3.4 mmol/L (3.5-5.1) L 06/29/24 03:54 Sodium 139 mmol/L (136-145) 06/29/24 03:54 BUN 8 mg/dL (7-18) 06/29/24 03:54 Creatinine 0.71 mg/dL (0.55-1.02) 06/29/24 03:54 Glucose 132 mg/dL (74-106) H 06/29/24 03:54 TSH 1.600 uIU/mL (0.358-3.740) 06/29/24 03:54 COAG PT 12.8 SECONDS (11.7-14.9) 06/27/24 17:14 Pre-Assessment Diagnosis/Proposed Procedure Planned Operative Procedure(s): Colonoscopy Anesthesia History 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 When Was Last Pacemaker Check QUESTION #4 FULL TEXT: You/Your Family Experience fever (hyperthermia) with Anesthesia Last Oral Intake Last Oral intake: Last Oral Intake NPO since 09:00 06/29/24 14:50 Meds taken in AM with sips of water? Meds patient instructed to take am of surgery Any additional information?: Yes NPO since: 09:00 (Patient finished prep at 9 AM) PONV PONV - national accounts sales: PONV - national accounts sales Female HX of Motion Sickness HX of N/V After Surgery Non-Smoker Duration of Surgery greater than 60 minutes Number of Risk Factors PONV Score Height & Weight Height & Weight: Anesthesia: Height & Weight Height 5 ft 2 in 06/29/24 14:50 Weight: 69 kg 06/29/24 14:50 Body Mass Index (BMI) 27.8 06/29/24 14:50 Respiratory Assessment Respiratory Assessment - national accounts sales: Respiratory Tract Infection Hx - national accounts sales Hx Respiratory Tract Infection No 08/05/23 08:23 STOP Sleep Apnea STOP Sleep Apnea - national accounts sales: STOP Sleep Apnea - national accounts sales Hx Hypertension Yes: CONTROLLED WITH MED 06/28/24 09:58 Hx Sleep Apnea No 06/28/24 09:58 CPAP BIPAP Do you snore loudly (louder No 06/28/24 09:58 than talking or can be heard Do you often feel tired/ No 06/28/24 09:58 fatigued/ sleepy during daytime? Has anyone observed you stop No 06/28/24 09:58 breathing during sleep? STOP Results Negative 06/28/24 09:58 QUESTION #5 FULL TEXT : Do you snore loudly (louder than talking or can be heard through closed doors)? 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 Specify any problems Hx of Preganancy in last 3 N/A 06/28/24 09:58 Months Nurse Filling Out [facility] 06/28/24 09:58 & Questions: Date: 06/28/24 06/28/24 09:58 Time: 10:06 06/28/24 09:58 Patient unable to answer at Yes 06/28/24 09:58 this time (ie. confused, unrespo /Reproduction History /Reproductive History - national accounts sales: /Reproductive Hx- national accounts sales Hx Now Gestational Age (in weeks): EDC: Hx Hx Para Hx Section SAB Active Medications Active Medications: Current Medications Generic Name Dose Route Start Last Admin Trade Name Freq PRN Reason Stop Dose Admin Acetaminophen 650 mg 06/28/24 09:54 Acetaminophen 325 Mg Tablet PO Q6H PRN PRN Pain 1-10 Or Fever >100.7 Albuterol Sulfate 2.5 mg 06/28/24 16:15 Albuterol 2.5 Mg/3 Ml Vial.Neb. INHALATION Q6H PRN shortness of breath or wheezing Albuterol Sulfate 2.5 mg 06/28/24 16:45 06/29/24 12:50 Albuterol 2.5 Mg/3 Ml Vial.Neb. INHALATION 2.5 mg Q6HWA.RT YE Administration Amiodarone HCl 100 mg 06/29/24 10:00 06/29/24 09:16 Amiodarone 200 Mg Tablet PO 100 mg DAILY YE Administration Atorvastatin Calcium 10 mg 06/30/24 10:00 Atorvastatin Calcium 10 Mg Tablet PO QODAY YE Budesonide 0.5 mg 06/28/24 16:45 06/29/24 07:36 Budesonide Respules 0.5 Mg/2 Ml Ampul.Neb. INHALATION 0.5 mg Q12H.RT YE Administration Folic Acid 1 mg 06/28/24 16:10 Folic Acid 1 Mg Tablet PO DAILY PRN pt. unsure Pantoprazole Sodium 40 mg/ 110 mls @ 330 mls/hr 06/28/24 09:54 06/29/24 09:48 Sodium Chloride IV Infused Q12 YE Infusion Piperacillin Sod/Tazobactam 50 mls @ 12.5 mls/hr 06/28/24 09:54 06/29/24 13:41 Sod 3.375 gm/ Sodium Chloride IV 12.5 mls/hr Q8 YE Administration Sodium Chloride 1,000 mls @ 15 mls/hr 06/29/24 15:00 06/29/24 15:00 IV 15 mls/hr .Q48H YE Administration Levothyroxine Sodium 75 mcg 06/29/24 06:00 06/29/24 06:05 Levothyroxine 75 Mcg Tablet PO 75 mcg DAILY@0600 YE Administration Metoprolol Succinate 25 mg 06/28/24 16:15 06/29/24 09:19 Metoprolol(Xl)Succ 25 Mg Tablet PO Not Given DAILY [facility] Protocol Polyethylene Glycol 0 bottle 06/28/24 16:00 06/29/24 15:16 Polyethylene Glycol 3350 Bowel Prep PO 06/29/24 16:01 Not Given 1600 [facility] Prochlorperazine Edisylate 5 mg 06/28/24 09:54 06/28/24 21:04 Prochlorperazine 10 Mg/2 Ml Vial IV 5 mg Q4H PRN PRN Administration Breakthrough Nausea/Vomiting Sertraline HCl 25 mg 06/29/24 10:00 06/29/24 09:17 Sertraline 50 Mg Tablet PO 25 mg DAILY YE Administration Sodium Chloride 10 - 40 ml 06/28/24 10:09 0.9% Saline Lock 10 Ml Syringe IV UD PRN SALINE FLUSH PFSH Medical History Minor surgery performed Wears glasses Anxiety Thyroid disease Arthritis High cholesterol History of diverticulitis PONV (postoperative nausea and vomiting) Non-smoker History of stress test History of echocardiogram Hypertension Cardiology follow-up encounter History of left heart catheterization (05/19/21) Atherosclerosis of coronary artery bypass graft of [place] heart with angina pectoris Spinal stenosis Osteopenia Essential hypertension Hypothyroidism Hyperlipidemia Rheumatoid arthritis Hiatal hernia Generalized osteoarthrosis, unspecified site GERD (gastroesophageal reflux disease) Depressive disorder Asthma Home Medications ?Medication ?Instructions ?Recorded ?Last Taken ?Type metoprolol succinate 25 mg 25 mg PO DAILY 04/14/21 08/09/23 08:00 History tablet,extended release 24 hr mometasone-formoterol HFA 100 1 puff inhalation BID PRN cough 04/14/21 Unknown History mcg-5 mcg/actuation aerosol inhaler multivitamin 1 tab PO DAILY 04/14/21 Unknown History ramipril 5 mg capsule 5 mg PO DAILY 04/14/21 08/09/23 History aspirin 81 mg tablet,delayed 81 mg PO .MWF start prior to left 05/03/21 07/26/23 History release (Adult Low Dose Aspirin) heart cath hydroxychloroquine 200 mg tablet 200 mg PO BID 08/18/21 Unknown History albuterol sulfate 90 mcg/actuation 2 inh inhalation Q6H PRN shortness 07/08/22 Unknown History aerosol inhaler of breath or wheezing levothyroxine 75 mcg tablet 75 mcg PO DAILY 07/08/22 08/09/23 History rosuvastatin 5 mg tablet See Rx Instructions .Route 03/01/23 Unknown Rx .COMPLEX #45 tabs amiodarone 100 mg tablet See Rx Instructions .Route 03/05/23 08/09/23 Rx .COMPLEX #90 tabs folic acid 1 mg tablet 1 mg PO DAILY PRN pt. unsure 09/24/23 Unknown History omeprazole magnesium 20 mg 20 mg PO DAILY PRN heartburn 09/24/23 Unknown History tablet,delayed release (Prilosec OTC) sertraline 25 mg tablet 25 mg PO DAILY anxiety 09/24/23 Unknown History Allergy/AdvReac Type Severity Reaction Status Date / Time simvastatin AdvReac Unknown Other Verified 06/29/24 14:49 atorvastatin calcium (From AdvReac Other Verified 06/29/24 14:49 Lipitor) Family History Mother Diabetes Father Cancer CAD (coronary artery disease) Sister No problems noted. Surgical History History of cardiac catheterization History of esophageal hernia repair History of hysterectomy History of total bilateral knee replacement History of umbilical hernia repair History of cholecystectomy History of esophagogastroduodenoscopy (EGD) History of colonoscopy History of cataract extraction History of appendectomy Social History Smoking Status: Never smoker alcohol intake: current substance use type: does not use Review of Systems (Anesthesia) ROS Narrative System reviewed and no additional complaints, except as documented.
--- NOTE | 2024-06-29 16:52 | PCM.POST.ANE ---
Anesthesia: Postop Eval I Current Vital Signs Temperature: 98.2 F Pulse Rate: 56 Blood Pressure: 99/54 Respiratory Rate: 18 Pulse Ox: 99 Oxygen Delivery Method: Room Air Assessment Airway patent: Yes Spontaneous unlabored respirations: Yes Mental status: Asleep nausea: No Vomiting: No Anesthesia Complication: No Fluid Hydration Crystalloid volume administer (ml): 200 Total IV fluid infused: 200 Progress Note Anesthesia document: Postop Eval 1 completed: Yes
--- NOTE | 2024-06-29 16:55 | OP.CCLET_ITS ---
06/29/2024 Michael Garcia [address] [place] [address] Re : Colonoscopy procedure for Zunilda Mercado Dear Dr. Garcia This procedure was performed on June. My impressions and recommendations are as follows: Impressions : - Diffuse severe inflammation was found in the descending colon, at the splenic flexure, in the transverse colon, at the hepatic flexure and in the ascending colon secondary to ischemic colitis. Biopsied. Recommendations : - Return patient to [facility] for [facility] care. -Stool softener once a day or every other day to maintain wanted to soft bowel movements a day for 4 to 6 weeks -Completed 2-week course of antibiotics -Lactobacillus containing antibiotic for the next 3 months once a day -81 mg of aspirin per day - Repeat colonoscopy is recommended for surveillance. The colonoscopy date will be determined after pathology results from today's exam become available for review. - Continue present medications. My findings are described in the full procedure note, which is enclosed. If I can be of further assistance, please feel free to contact me at . Sincerely, Ahmet Ribeiro, 06/29/2024 4:54:45 PM This report has been signed electronically.
--- NOTE | 2024-06-29 16:55 | OP.COLON_ITS ---
Patient Name: Zunilda Mercado Procedure Date: 06/29/2024 4:12 PM Date of : 1935 Age: 89 Procedure: Colonoscopy Indications: Hematochezia Providers: Ahmet Ribeiro DO Medicines: Monitored Anesthesia Care Patient Profile: This is an 89 year old female. Refer to note in patient chart for documentation of history and physical. Last Colonoscopy: date unknown. Unable to locate last colonoscopy report. Complications: No immediate complications. Procedure: Pre-Anesthesia Assessment: - Prior to the procedure, a History and Physical was performed, and patient medications and allergies were reviewed. The patient is competent. The risks and benefits of the procedure and the sedation options and risks were discussed with the patient. All questions were answered and informed consent was obtained. Patient identification and proposed procedure were verified by the physician in the pre-procedure area. Mental Status Examination: alert and oriented. Airway Examination: normal oropharyngeal airway and neck mobility. Respiratory Examination: clear to auscultation. CV Examination: normal. Prophylactic Antibiotics: The patient does not require prophylactic antibiotics. Prior Anticoagulants: The patient has taken no anticoagulant or antiplatelet agents except for NSAID medication. ASA Grade Assessment: II - A patient with mild systemic disease. After reviewing the risks and benefits, the patient was deemed in satisfactory condition to undergo the procedure. The anesthesia plan was to use monitored anesthesia care (MAC). Immediately prior to administration of medications, the patient was re-assessed for adequacy to receive sedatives. The heart rate, respiratory rate, oxygen saturations, blood pressure, adequacy of pulmonary ventilation, and response to care were monitored throughout the procedure. The physical status of the patient was re-assessed after the procedure. After I obtained informed consent, the scope was passed under direct vision. Throughout the procedure, the patient's blood pressure, pulse, and oxygen saturations were monitored continuously. The Colonoscope was introduced through the anus and advanced to the cecum, identified by appendiceal orifice and ileocecal valve. The colonoscopy was performed without difficulty. The patient tolerated the procedure well. The quality of the bowel preparation was adequate. Scope In: 4:25:50 PM Scope Withdrawal Time 0 hours 7 minutes 0 seconds Scope Out: 4:40:07 PM Total Procedure Duration Time 0 hours 14 minutes 17 seconds Findings: The perianal and digital rectal examinations were normal. Diffuse severe inflammation characterized by erythema, granularity and deep ulcerations was found in the descending colon, at the splenic flexure, in the transverse colon, at the hepatic flexure and in the ascending colon. Biopsies were taken with a cold forceps for histology. Verification of patient identification for the specimen was done. Estimated blood loss was minimal. Impression: - Diffuse severe inflammation was found in the descending colon, at the splenic flexure, in the transverse colon, at the hepatic flexure and in the ascending colon secondary to ischemic colitis. Biopsied. Recommendation: - Return patient to [facility] for ongoing care. -Stool softener once a day or every other day to maintain wanted to soft bowel movements a day for 4 to 6 weeks -Completed 2-week course of antibiotics -Lactobacillus containing antibiotic for the next 3 months once a day -81 mg of aspirin per day - Repeat colonoscopy is recommended for surveillance. The colonoscopy date will be determined after pathology results from today's exam become available for review. - Continue present medications. Procedure Code(s): --- Professional --- 65589, Colonoscopy, flexible; with biopsy, single or multiple CPT copyright 2021 [employer]. All rights reserved. The codes documented in this report are preliminary and upon farm equipment technician review may be revised to meet current compliance requirements. Ahmet Ribeiro DO 06/29/2024 4:54:45 PM This report has been signed electronically. Number of Addenda: 0 Note Initiated On: 06/29/2024 4:12 PM
--- NOTE | 2024-06-29 17:37 | PCM.POSTANE2 ---
Anesthesia Postop Eval I Sum Postop Eval Completion status Anesthesia document: Postop Eval 1 completed: Yes Anesthesia Postop Eval I Summary Anesthesia Postop Eval I Summary: Anesthesia Postop Eval I: Assessment Summary Airway patent Yes 06/29/24 16:53 [email or web address] Spontaneous unlabored Yes 06/29/24 16:53 [email or web address] respirations Mental status Asleep 06/29/24 16:53 [email or web address] nausea No 06/29/24 16:53 [email or web address] Vomiting No 06/29/24 16:53 [email or web address] Anesthesia Postop Eval I: Fluid Summary Crystalloid volume administer 200 06/29/24 16:53 [email or web address] (ml) Colloids volume administered ( ml) Blood Product volume administered (ml) Total IV fluid infused 200 06/29/24 16:53 [email or web address] Anesthesia Postop Eval I: Summary Notes Anesthesia Complication No 06/29/24 16:53 [email or web address] Anesthesia Complication Comment: Post-operative progress note Anesthesia: Postop Eval II Evaluation Mental status: Awake Pain Level: 0 nausea: No Vomiting: No
[2024-06-29] MEDS: 0.9% Saline Lock 10 ML Syringe IV (20:04)
[2024-06-30] VITALS (7 sets, daily range): BP systolic 118–143; BP diastolic 60–82; PULSE 49–106; RESP 15–20; TEMP 36.4–36.8; O2SAT 93–97
[2024-06-30] MEDS: Piperacil/Tazobactam 3.375 GM in 0.9% Normal Saline (50mL MB+) 50 ML IV ×3 (05:59→21:51)
[2024-06-30] MEDS: Levothyroxine 75 MCG Tablet PO (05:59)
[2024-06-30] MEDS: Albuterol 2.5 MG/3 ML VIAL.NEB. INHALATION ×2 (06:54→12:54)
[2024-06-30] MEDS: Budesonide Respules 0.5 MG/2 ML AMPUL.NEB. INHALATION (06:54)
[2024-06-30 07:38] LABS: Absolute Neutrophil Count 9.2 X10^3/uL (2.0-7.7); Basophil# 0.12 X10^3/uL; Eosinophil# 0.11 X10^3/uL; Eosinophils% 0.9 % (0-5); Hematocrit 42.1 % (37-47); Hemoglobin 13.8 g/dL (12.0-15.0); Lymphocyte % 13.8 % (19-41); Mean Corp Hgb Conc 32.8 g/dL (32-36); Mean Corpuscular Hgb 32.9 pg (27.0-32.0); Mean Corpuscular Volume 100.5 fL (81-99); Mean Platelet Vol. 10.8 fl (6.2-12.0); Monocyte# 1.18 X10^3/uL; Monocyte% 9.5 % (0-10); NRBC Flagged by Analyzer 0 % (0-5); Neutrophil % 74.4 % (47-70); Platelet Count 168 K/mm3 (150-450); RBC Distribution Width CV 12.6 % (11.6-14.6); RBC Distribution Width SD 46.8 fl (35.1-43.9); Red Blood Count 4.19 M/mm3 (4.2-5.4); White Blood Count 12.4 K/mm3 (4.4-11.0)
[2024-06-30] MEDS: Sertraline 50 MG Tablet 25 MG PO (09:20)
[2024-06-30] MEDS: Amiodarone 200 MG Tablet 100 MG PO (09:22)
--- NOTE | 2024-06-30 09:47 | PCM.PN.HOSP ---
Reason for Visit Reason for Visit: Diagnoses Noninfective gastroenteritis and colitis, unspecified (06/28/24) Gastrointestinal hemorrhage, unspecified (06/28/24) Objective Data Objective Data Vital Signs: Vital Signs Temp Pulse Resp BP Pulse Ox O2 Del Method 97.8 F 49 L 16 118/60 96 Room Air 06/30/24 08:55 06/30/24 09:23 06/30/24 08:55 06/30/24 08:55 06/30/24 08:55 06/30/24 08:55 Oxygen Delivery Method Room Air Weight: 152 lb 1.903 oz Body Mass Index (BMI) 27.8 Intake & Output: Intake and Output for Last 24 Hours 06/28/24 06/29/24 06/30/24 23:59 23:59 23:59 Intake Total 1270 / 1870 2386.25 / 2386.25 492.5 / 492.5 Output Total 100 / 100 400 / 400 Balance 1270 / 1770 2286.25 / 2286.25 92.5 / 92.5 Lab / Micro Data 06/30/24 07:15 06/29/24 03:54 Labs: Laboratory Results - last 24 hr 06/30/24 07:15: WBC 12.4 H, RBC 4.19 L, Hgb 13.8, Hct 42.1, MCV 100.5 H, MCH 32.9 H, MCHC 32.8, RDW Std Deviation 46.8 H, RDW Coeff of Braeden 12.6, Plt Count 168, MPV 10.8, Immature Gran % (Auto) 0.400, Neut % (Auto) 74.4 H, Lymph % (Auto) 13.8 L, [place] % (Auto) 9.5, Eos % (Auto) 0.9, Baso % (Auto) 1.0, Absolute Neuts (auto) 9.2 H, Absolute Lymphs (auto) 1.70, Nucleated RBC % 0 Micro: Microbiology 06/28/24 10:18 Urine, Clean Catch Urine Culture - Final Pseudomonas aeruginosa 06/29/24 08:20 Stool Enteric Bacteriology - Final 06/29/24 08:20 Stool Clostridioides difficile (PCR) - Final 06/27/24 18:33 Stool Stool Occult Blood (KEL[facility]Y) - Final Occult Blood Positive Physical Exam Narrative Seen and examined Patient did not had diarrhea or loose bowel movement today. No bleeding. Eating her meal. She still feels fatigue and weak. Heart rate, irregular on cardiac monitor technician Physical exam General: Alert, Oriented x3, Cooperative. Fatigue BMI 27.8 kg/m? HEENT: Atraumatic, PERRLA, EOMI, Normocephalic Oral: Oral mucosa dry. No Gingival or Mucosal Lesions/ Ulcerations Neck: Supple, No JVD, Negative Carotid Bruits Chest wall/Lungs: Air entry diminished in bilateral lung bases. No crepitation/rhonchi Cardiovascular: Irregular rhythm, A-fib, 67/min. Normal S1, Normal S2, No M/G/R Abdomen: Bloody bowel movement. Bowel Sounds Present, Soft, mild tenderness present over left upper quadrant better than yesterday. No rebound tenderness. Liver not enlarged. : No dysuria. No renal angle tenderness. No suprapubic tenderness. Extremities: No edema, Capillary Refill Less than 3 Seconds Skin: No rashes, No breakdown Musculoskeletal: No Tenderness to Palpation of Joints or Extremities Neurological: Cranial nerves II-XII grossly intact, DTR 2+/4. No acute focal neurological deficit. Psych/Mental Status: Flat affect. Assessment & Plan Assessment/Plan (1) GI bleed: (2) Acute colitis: PLAN: Plan This is a 85-year-old female being admitted for abdominal pain diarrhea with hematochezia. 1. Subacute abdominal pain most likely due to left-sided colitis/diverticulitis: Patient is being admitted in the ICU as PCU status. CT abdomen individually reviewed. It shows diverticular changes of distal descending and sigmoid colon with mild acute diverticulitis of the sigmoid without peridiverticular abscess. On my review, found stool/fecal matter over ascending colon. Stool for enteric panel and C. difficile ordered. Started on IV Zosyn. Patient has leukocytosis with mainly neutrophils. GI consulted for colonoscopy. 06/29: Afebrile. Blood pressure systolic 150s. Patient was dizzy lightheaded and low blood pressure in 80s at home before coming to ED. Leukocytosis predominantly neutrophils, getting worse from 11,800-18,500. Continue IV Zosyn. Stool for occult blood positive. Stool for enteric bacteriology panel and C. difficile pending. Patient evaluated by certified paralegal and plan for colonoscopy today. Differential are left-sided inflammatory colitis, infectious colitis, ischemic colitis/ulcerative colitis. 06/30: Colonoscopy on 06/29. Stool for C. difficile and enteric bacteriology panel negative. Impressions : - Diffuse severe inflammation was found in the descending colon, at the splenic flexure, in the transverse colon, at the hepatic flexure and in the ascending colon secondary to ischemic colitis. Biopsied. Recommendations : - -Stool softener once a day or every other day to maintain wanted to soft bowel movements a day for 4 to 6 weeks 2-week course of antibiotics -Lactobacillus containing antibiotic for the next 3 months once a day -81 mg of aspirin per day. Previously patient was on aspirin 81 mg MWF changed to daily. - Repeat colonoscopy is recommended for surveillance. 2. Lower GI bleed most likely diverticular bleed/colitis: Patient last bleeding was, hematochezia in the morning today. H&H 14.5/43.4.Stool for occult blood positive. Rest as mentioned above. 06/29: Hemoglobin did not show major drop, above 14 g%. Platelet count normal. 3. 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 Forrester. She is on aspirin every other day. Hold baby aspirin. Her last stress test and cardiac cath was April 2021. Her other chronic cardiac conditions include history of SVT. 4. Hypertension: Patient stated she was hypotensive with dizzy and lightheadedness at home but has recovered now. Blood pressure is in normal range. SBP in 120s. Hold antihypertensive medication. 5. Dyslipidemia: Patient on rosuvastatin continued. DVT prophylaxis: Pharmacological prophylaxis contraindicated. Bilateral SCDs. Living will/advanced directive/end of life care: Patient does have living will or advanced directive. Daughter present in ICU Mrs. Kristina Arana is power of state attorney for health. After discussion of benefits/risks procedures involved with full code, DNR CC arrest and DNR CC, the patient opted for DNR CC with arrest Patient doesn't want artificial life support including intubation, tube feed, ventilator and/chest compression, central venous catheter, vasopressor and DC shock if needed Clinical Impression(s) from Imaging Studies Abdomen/Pelvis CT 06/27/24 18:32 IMPRESSION: Diverticular changes of the distal descending and sigmoid colon findings consistent with mild acute diverticulitis of the sigmoid without peridiverticular abscess. Cannot definitively exclude presence of intraluminal hemorrhage within the sigmoid versus previously ingested oral contrast Recommend clinical correlation and further assessment with radionuclide tagged red blood cell study if clinically warranted. Microbiology Past 72 Hours 06/27/24 18:33 Stool Stool Occult Blood ([facility]EL[facility]) - Final Occult Blood Positive Laboratory Results 06/27/24 17:14: WBC 11.8 H, RBC 3.59 L, Hgb 12.0, Hct 36.4 L, MCV 101.4 H, MCH 33.4 H, MCHC 33.0, RDW Std Deviation 47.0 H, RDW Coeff of Braeden 12.6, Plt Count 166, MPV 11.0, Immature Gran % (Auto) 0.400, Neut % (Auto) 73.6 H, Lymph % (Auto) 14.1 L, [place] % (Auto) 9.8, Eos % (Auto) 1.4, Baso % (Auto) 0.7, Absolute Neuts (auto) 8.7 H, Absolute Lymphs (auto) 1.67, Nucleated RBC % 0, PT 12.8, INR 1.0, APTT 26.8, Blood Type A POSITIVE, Antibody Screen NEGATIVE 06/27/24 18:08: Urine Color Yellow, Urine Clarity Sl. Cloudy, Urine pH 6.0, Ur Specific [place] 1.015, Urine Protein 15 H, Urine Glucose (UA) Normal, Urine Ketones Negative, Urine Occult Blood 150 H, Urine Nitrite Positive H, Urine Bilirubin Negative, Urine Urobilinogen Normal, Ur Leukocyte Esterase 500 H, Urine RBC 0-5 SEEN, Urine WBC 5-10 SEEN, Ur Squamous Epith Cells 0 SEEN, Urine Bacteria 2+, Urine Mucus 0 SEEN 06/27/24 18:15: Sodium 137, Potassium 4.4, Chloride 104, Carbon Dioxide 24.0, Anion Gap 9, BUN 14, Creatinine 0.87, Estim Creat Clear Calc 44.43, Est GFR (MDRD) Af Amer 79, Est GFR (MDRD) Non-Af 65, BUN/Creatinine Ratio 16.0, Glucose 113 H, Calcium 9.8, Total Bilirubin 0.80, AST 47 H, ALT 45, Alkaline Phosphatase 67, Troponin I High Sens 5, Total Protein 7.8, Albumin 3.9, Globulin 3.9, Albumin/Globulin Ratio 1.0 06/27/24 21:26: Lactic Acid 1.4 06/27/24 21:32: WBC 11.7 H, RBC 4.43, Hgb 14.6, Hct 43.6, MCV 98.4, MCH 33.0 H, MCHC 33.5, RDW Std Deviation 43.9, RDW Coeff of Braeden 12.1, Plt Count 192, MPV 10.3 06/28/24 08:43: WBC 17.0 H, RBC 4.75, Hgb 15.8 H, Hct 46.1, MCV 97.1, MCH 33.3 H, MCHC 34.3, RDW Std Deviation 43.9, RDW Coeff of Braeden 12.4, Plt Count 218, MPV 11.0, Immature Gran % (Auto) 0.400, Neut % (Auto) 83.8 H, Lymph % (Auto) 8.6 L, [place] % (Auto) 6.8, Eos % (Auto) 0.0, Baso % (Auto) 0.4, Absolute Neuts (auto) 14.3 H, Absolute Lymphs (auto) 1.46, Nucleated RBC % 0, Sodium 138, Potassium 4.4, Chloride 106, Carbon Dioxide 27.0, Anion Gap 5, BUN 10, Creatinine 0.82, Estim Creat Clear Calc 47.14, Est GFR (MDRD) Af Amer 85, Est GFR (MDRD) Non-Af 71, BUN/Creatinine Ratio 12.3, Glucose 126 H, Calcium 9.2, Total Bilirubin 1.00, AST 39 H, ALT 39, Alkaline Phosphatase 53, Total Protein 7.1, Albumin 3.4, Globulin 3.7, Albumin/Globulin Ratio 0.9 06/28/24 13:30: Hgb 14.5, Hct 43.5
[2024-06-30 09:58] LABS: ALB/GLOB Ratio 0.8 RATIO (0.9-2.4); AST(SGOT) 22 U/L (15-37); Alanine Aminotransfer ALT/SGPT 27 U/L (13-56); Albumin, Serum 2.8 g/dL (3.2-5.0); Alkaline Phosphatase 41 U/L (45-117); Anion Gap 7 (5-15); BUN 7 mg/dL (7-18); BUN/Creat Ratio 8.8 RATIO (10-20); Calcium,Total 8.7 mg/dL (8.5-10.1); Chloride 108 mmol/L (98-107); EST Glomerular Filtration Rate 72 mL/min (>60); Est Glom Filt Rate - Afr Amer 88 mL/min (>60); Globulin 3.3 g/dL (2.2-4.2); Glucose 93 mg/dL (74-106); Potassium 3.2 mmol/L (3.5-5.1); Protein, Total 6.1 g/dL (6.4-8.2); Sodium Level 139 mmol/L (136-145)
[2024-06-30] MEDS: Pantoprazole Sodium 40 MG Tablet PO (10:04)
[2024-06-30] MEDS: Lactobacillis Acidophilus 1 CAP PO ×3 (10:04→21:51)
[2024-06-30] MEDS: Aspirin E.C. 81 MG Tablet PO (10:04)
[2024-06-30] MEDS: Acetaminophen 325 MG Tablet 650 MG PO (12:10)
[2024-06-30] MEDS: Metoprolol(XL)Succ 25 MG Tablet PO (13:30)
--- NOTE | 2024-06-30 17:46 | EX.PCM.PN.GI ---
Subjective Subjective Patient underwent colonoscopy yesterday. She does not have any abdominal pain at this time. She is only tolerating soft diet at this time. She is not having any more bleeding at this time. Objective Data Objective Data Vital Signs: Vital Signs Temp Pulse Resp BP Pulse Ox O2 Del Method 97.5 F L 72 15 132/82 H 93 Room Air 06/30/24 13:30 06/30/24 13:30 06/30/24 13:30 06/30/24 13:30 06/30/24 13:30 06/30/24 13:30 Oxygen Delivery Method Room Air Weight: 152 lb 1.903 oz Body Mass Index (BMI) 27.8 Intake & Output: Intake and Output for Last 24 Hours 06/28/24 06/29/24 06/30/24 23:59 23:59 23:59 Intake Total 1270 / 1870 2386.25 / 2386.25 832.5 / 832.5 Output Total 100 / 100 400 / 400 Balance 1270 / 1770 2286.25 / 2286.25 432.5 / 432.5 Lab / Micro Data 06/30/24 07:15 06/30/24 05:19 Labs: Laboratory Results - last 24 hr 06/30/24 05:19: WBC Cancelled, Corrected WBC Cancelled, RBC Cancelled, Hgb Cancelled, Hct Cancelled, MCV Cancelled, MCH Cancelled, MCHC Cancelled, RDW Std Deviation Cancelled, RDW Coeff of Braeden Cancelled, Plt Count Cancelled, MPV Cancelled, Immature Gran % (Auto) Cancelled, Neut % (Auto) Cancelled, Lymph % (Auto) Cancelled, Gordon % (Auto) Cancelled, Eos % (Auto) Cancelled, Baso % (Auto) Cancelled, Absolute Neuts (auto) Cancelled, Absolute Lymphs (auto) Cancelled, Total Counted Cancelled, Neutrophils % (Manual) Cancelled, Band Neutrophils % Cancelled, Lymphocytes % (Manual) Cancelled, Monocytes % (Manual) Cancelled, Eosinophils % (Manual) Cancelled, Basophils % (Manual) Cancelled, Metamyelocytes % Cancelled, Myelocytes % Cancelled, Promyelocytes % Cancelled, Blast Cells % Cancelled, Plasma Cell % (Manual) Cancelled, Other Cells % Cancelled, Nucleated RBC % Cancelled, Nucleated RBCs/100 WBC Cancelled, Differential Comment Cancelled, Diff Path Review Cancelled, Hypersegmented Neuts Cancelled, Atypical Lymphocytes Cancelled, Reactive Lymphocytes Cancelled, Smudge Cells Cancelled, Toxic Granulation Cancelled, Toxic Vacuolation Cancelled, Dohle Bodies Cancelled, Fernando Rods Cancelled, Platelet Estimate Cancelled, Plt Morphology Comment Cancelled, RBC Morphology Cancelled 06/30/24 05:19: RBC Morphology Cancelled, Polychromasia Cancelled, Hypochromasia Cancelled, Basophilic Stippling Cancelled, Anisocytosis Cancelled, Microcytosis Cancelled, Macrocytosis Cancelled, Spherocytes Cancelled, Sickle Cells Cancelled, Target Cells Cancelled, Tear Drop Cells Cancelled, Ovalocytes Cancelled, Stomatocytes Cancelled, Mckinley-Massillon Bodies Cancelled, Rasheed Cells Cancelled, Bite Cells Cancelled, Crenated Cell Cancelled, Acanthocytes (Spur) Cancelled, Rouleaux Cancelled, Schistocytes Cancelled, Sodium 139, Potassium 3.2 L, Chloride 108 H, Carbon Dioxide 24.0, Anion Gap 7, BUN 7, Creatinine 0.80, Estim Creat Clear Calc 45.10, Est GFR (MDRD) Af Amer 88, Est GFR (MDRD) Non-Af 72, BUN/Creatinine Ratio 8.8 L, Glucose 93, Calcium 8.7, Total Bilirubin 1.30 H, AST 22, ALT 27, Alkaline Phosphatase 41 L, Total Protein 6.1 L, Albumin 2.8 L, Globulin 3.3, Albumin/Globulin Ratio 0.8 L 06/30/24 07:15: WBC 12.4 H, RBC 4.19 L, Hgb 13.8, Hct 42.1, MCV 100.5 H, MCH 32.9 H, MCHC 32.8, RDW Std Deviation 46.8 H, RDW Coeff of Braeden 12.6, Plt Count 168, MPV 10.8, Immature Gran % (Auto) 0.400, Neut % (Auto) 74.4 H, Lymph % (Auto) 13.8 L, Gordon % (Auto) 9.5, Eos % (Auto) 0.9, Baso % (Auto) 1.0, Absolute Neuts (auto) 9.2 H, Absolute Lymphs (auto) 1.70, Nucleated RBC % 0 Micro: Microbiology 06/28/24 10:18 Urine, Clean Catch Urine Culture - Final Pseudomonas aeruginosa 06/29/24 08:20 Stool Enteric Bacteriology - Final 06/29/24 08:20 Stool Clostridioides difficile (PCR) - Final 06/27/24 18:33 Stool Stool Occult Blood ([facility]) - Final Occult Blood Positive Physical Exam Narrative Seen and examined Patient did not had diarrhea or loose bowel movement today. No bleeding. Eating her meal. She still feels fatigue and weak. Heart rate, irregular on simulation technician Physical exam General: Alert, Oriented x3, Cooperative. Fatigue BMI 27.8 kg/m? HEENT: Atraumatic, PERRLA, EOMI, Normocephalic Oral: Oral mucosa dry. No Gingival or Mucosal Lesions/ Ulcerations Neck: Supple, No JVD, Negative Carotid Bruits Chest wall/Lungs: Air entry diminished in bilateral lung bases. No crepitation/rhonchi Cardiovascular: Irregular rhythm, A-fib, 67/min. Normal S1, Normal S2, No M/G/R Abdomen: Bloody bowel movement. Bowel Sounds Present, Soft, mild tenderness present over left upper quadrant better than yesterday. No rebound tenderness. Liver not enlarged. : No dysuria. No renal angle tenderness. No suprapubic tenderness. Extremities: No edema, Capillary Refill Less than 3 Seconds Skin: No rashes, No breakdown Musculoskeletal: No Tenderness to Palpation of Joints or Extremities Neurological: Cranial nerves II-XII grossly intact, DTR 2+/4. No acute focal neurological deficit. Psych/Mental Status: Flat affect. Assessment & Plan Assessment/Plan (1) Acute colitis: PLAN: Very pleasant 89-year-old with past medical history of CAD and cardiac arrhythmia on amiodarone and aspirin who presented from home after having some abdominal pain while attempting to go to the bathroom and developing lower GI bleeding after having a presyncopal event. She underwent colonoscopy yesterday and was discovered to have severe ischemic colitis involving the superior mesenteric circulation and inferior mesenteric circulation. She is at risk for scarring and stricturing secondary to severe ischemic colitis. At this time due to her age and classic history with hypotension I am not recommending hypercoagulable workup. I am recommending continue aspirin 81 mg to 162 mg/day. If she develops another episode of ischemic colitis we will recommend imaging such as a CT angiography and hypercoagulable workup. Charges/Coding Visit Charges Inpatient E&M: 03222 Subs Hosp L3
[2024-07-01 03:00] VITALS: BP 137/71; PULSE 52; RESP 16; TEMP 36.8; O2SAT 95
[2024-07-01] MEDS: Piperacil/Tazobactam 3.375 GM in 0.9% Normal Saline (50mL MB+) 50 ML IV (05:26)
[2024-07-01] MEDS: Levothyroxine 75 MCG Tablet PO (05:26)
[2024-07-01] MEDS: Lactobacillis Acidophilus 1 CAP PO (05:32)
[2024-07-01 06:38] LABS: Absolute Lymphocyte Count 1.66 X10^3/uL (0.83-4.51); Absolute Neutrophil Count 5.3 X10^3/uL (2.0-7.7); Basophil# 0.07 X10^3/uL; Basophil% 0.9 % (0-1); Eosinophil# 0.26 X10^3/uL; Eosinophils% 3.2 % (0-5); Hematocrit 40.6 % (37-47); Hemoglobin 13.4 g/dL (12.0-15.0); Lymphocyte # 1.66 X10^3/ul (0.83-4.51); Lymphocyte % 20.4 % (19-41); Mean Corpuscular Hgb 32.9 pg (27.0-32.0); Mean Corpuscular Volume 99.8 fL (81-99); Mean Platelet Vol. 11.1 fl (6.2-12.0); Monocyte# 0.78 X10^3/uL; Monocyte% 9.6 % (0-10); NRBC Flagged by Analyzer 0 % (0-5); Neutrophil # 5.34 X10^3/uL (2.7-7.7); Neutrophil % 65.7 % (47-70); POSITIVE COUNT YES; Platelet Count 151 K/mm3 (150-450); RBC Distribution Width CV 12.2 % (11.6-14.6); RBC Distribution Width SD 45.3 fl (35.1-43.9); Red Blood Count 4.07 M/mm3 (4.2-5.4); White Blood Count 8.1 K/mm3 (4.4-11.0)
[2024-07-01 06:48] LABS: Differential Indicated SCAN CRITERIA MET
[2024-07-01 06:54] LABS: Differential Comment SCANNED
[2024-07-01 07:01] LABS: AST(SGOT) 23 U/L (15-37); Alanine Aminotransfer ALT/SGPT 28 U/L (13-56); Alkaline Phosphatase 43 U/L (45-117); Anion Gap 10 (5-15); BUN 10 mg/dL (7-18); BUN/Creat Ratio 12.8 RATIO (10-20); Calcium,Total 8.6 mg/dL (8.5-10.1); Chloride 107 mmol/L (98-107); Creatinine, Serum 0.78 mg/dL (0.55-1.02); EST Glomerular Filtration Rate 74 mL/min (>60); Est Glom Filt Rate - Afr Amer 90 mL/min (>60); Globulin 2.9 g/dL (2.2-4.2); Glucose 90 mg/dL (74-106); Potassium 3.3 mmol/L (3.5-5.1); Protein, Total 5.9 g/dL (6.4-8.2); Sodium Level 141 mmol/L (136-145)
[2024-07-01 07:28] VITALS: PULSE 88; RESP 20; O2SAT 98
[2024-07-01] MEDS: Albuterol 2.5 MG/3 ML VIAL.NEB. INHALATION (07:28)
[2024-07-01] MEDS: Budesonide Respules 0.5 MG/2 ML AMPUL.NEB. INHALATION (07:28)
[2024-07-01 08:30] VITALS: BP 154/68; PULSE 54; RESP 15; TEMP 36.6; O2SAT 96
[2024-07-01] MEDS: Amiodarone 200 MG Tablet 100 MG PO (08:32)
[2024-07-01 08:33] VITALS: PULSE 54
[2024-07-01] MEDS: Pantoprazole Sodium 40 MG Tablet PO (08:33)
[2024-07-01] MEDS: Aspirin E.C. 81 MG Tablet PO (08:33)
[2024-07-01] MEDS: Sertraline 50 MG Tablet 25 MG PO (08:34)
--- NOTE | 2024-07-01 10:02 | DCINST_ITS ---
Discharge Instructions Diet Discharge Diet: Light diet - advance as tolerated (Soft consistency diet for next 3 to 4 days.) Activity Discharge Activity: Return to Normal Activity Weight Bearing Status: Weight bearing as tolerated Dressing / Incision Call your doctor if you observe: Fever of 101 or Higher, Coldness, Increased Pain, Numbness or Tingling, Change in Color, Inability to urinate, Inability to have a bowel movement, Using more than 1 pad per hour, Shortness of breath, Dizziness, Fainting spells, Swelling in the ankles, Chest pain, Prolonged hiccupping, Increased palpitations (irregular heartbeat) and Calf discomfort Follow Up Care When: IN 2 WEEKS Test Results: Test results from this visit will be discussed in further detail at your follow- up appointment, if applicable. Discharge Plan Admission Admit Date/Time: 06/28/24 07:59 Primary Reason for Your Visit: Ischemic/inflammatory pancolitis Attending Provider: Nico Reyes Primary Care Provider: Michael Garcia Instructions Additional Instructions / Restrictions: MiraLAX, senna S and lactobacillus/probiotic are available [id number]. Does not need prescription for that. Discharge Orders/Prescriptions Prescriptions: New pantoprazole 40 mg Tablet,Delayed Release (Dr/Ec) 40 mg PO DAILY 30 Days Qty: 30 1RF L.acidoph,saliva-B.bif-S.therm 175 mg Capsule 1 cap PO TID Qty: 0 0RF Rx Instructions: Continue for about 2 months polyethylene glycol 3350 [Miralax] 17 gram/dose powder 17 g PO DAILY 30 Days Qty: 510 0RF sennosides-docusate sodium [Senna-S] 8.6-50 mg tablet 2 tab-cap PO BID PRN (Reason: constipation) Qty: 30 0RF Rx Instructions: Available [id number] ciprofloxacin HCl [Cipro] 500 mg tablet 500 mg PO BID 10 Days Qty: 20 0RF metronidazole 500 mg tablet 500 mg PO Q8H 10 Days Qty: 30 0RF Continued mometasone-formoterol 100-5 mcg/actuation HFA aerosol inhaler 1 puff inhalation BID PRN (Reason: cough) multivitamin Tablet 1 tab PO DAILY levothyroxine 75 mcg tablet 75 mcg PO DAILY albuterol sulfate 90 mcg/actuation HFA aerosol inhaler 2 inh inhalation Q6H PRN (Reason: shortness of breath or wheezing) folic acid 1 mg tablet 1 mg PO DAILY PRN (Reason: pt. unsure) metoprolol succinate 25 mg tablet extended release 24 hr 25 mg PO DAILY hydroxychloroquine 200 mg tablet 200 mg PO BID sertraline 25 mg tablet 25 mg PO DAILY ramipril 5 mg capsule 5 mg PO DAILY 30 Days Qty: 0 0RF Rx Instructions: Hold for SBP less than 130 mmHg rosuvastatin 5 mg tablet See Rx Instructions .ROUTE .COMPLEX Qty: 45 3RF Dose Instruction: TAKE 1 TABLET BY MOUTH EVERY OTHER DAY Rx Instructions: TAKE 1 TABLET BY MOUTH EVERY OTHER DAY amiodarone 100 mg tablet See Rx Instructions .ROUTE .COMPLEX Qty: 90 3RF Dose Instruction: TAKE 1 TABLET BY MOUTH EVERY DAY Rx Instructions: TAKE 1 TABLET BY MOUTH EVERY DAY Changed aspirin [Adult Low Dose Aspirin] 81 mg tablet,delayed release (DR/EC) 81 mg PO DAILY 30 Days Qty: 30 2RF Rx Instructions: Discontinue if platelet count drops less than 50,000 or hemoglobin less than 8 g% Discontinued omeprazole magnesium [Prilosec OTC] 20 mg tablet,delayed release (DR/EC) 20 mg PO DAILY PRN (Reason: heartburn) Referrals / Follow Up: Michael Garcia MD [Primary Care Provider] - Within 2 Weeks Ahmet Ribeiro DO [Med Staff - Active Staff] - Within 1 Month Disposition Disposition (needs filled in before D/C Order can be placed): Home, Self Care
--- NOTE | 2024-07-01 10:20 | PCM.DC.SUM ---
Providers Date of Admission: 06/28/24 Date of Discharge: 07/01/24 Primary Care Physician: Dr. Michael Garcia MD Consultations 06/28/24 09:54 Consult: Gastroenterology Routine Consulting Provider: [facility] Reason for Consult: GI bleed EMERGENT Consult: No Notified: Yes Date Notified: 06/28/24 Time Notified: 08:03 Method of Notification: Text Reason For Visit: GI BLEED Diagnosis Discharge Diagnosis (1) Acute colitis: Status: Acute Code(s): K52.9 - Noninfective gastroenteritis and colitis, unspecified Plan This is a 85-year-old female being admitted for abdominal pain diarrhea with hematochezia. 1. Subacute abdominal pain most likely due to pancolitis most likely ischemic colitis: Patient is being admitted in the ICU as PCU status. CT abdomen individually reviewed. It shows diverticular changes of distal descending and sigmoid colon with mild acute diverticulitis of the sigmoid without peridiverticular abscess. On my review, found stool/fecal matter over ascending colon. Stool for enteric panel and C. difficile ordered. Started on IV Zosyn. Patient has leukocytosis with mainly neutrophils. GI consulted for colonoscopy. 06/29: Afebrile. Blood pressure systolic 150s. Patient was dizzy lightheaded and low blood pressure in 80s at home before coming to ED. Leukocytosis predominantly neutrophils, getting worse from 11,800-18,500. Continue IV Zosyn. Stool for occult blood positive. Stool for enteric bacteriology panel and C. difficile pending. Patient evaluated by transmission specialist and plan for colonoscopy today. Differential are left-sided inflammatory colitis, infectious colitis, ischemic colitis/ulcerative colitis. 06/30: Colonoscopy on 06/29. Stool for C. difficile and enteric bacteriology panel negative. Impressions : - Diffuse severe inflammation was found in the descending colon, at the splenic flexure, in the transverse colon, at the hepatic flexure and in the ascending colon secondary to ischemic colitis. Biopsied. Recommendations : - -Stool softener once a day or every other day to maintain wanted to soft bowel movements a day for 4 to 6 weeks 2-week course of antibiotics -Lactobacillus containing antibiotic for the next 3 months once a day -81 mg of aspirin per day. Previously patient was on aspirin 81 mg MWF changed to daily. - Repeat colonoscopy is recommended for surveillance. 9/7: Abdominal pain has resolved. No further GI bleed. Prescriptions given for Cipro and Flagyl for 10 more days to complete a total of 2 weeks of antibiotic course. Aspirin 81 mg daily to continue. Jbep-[id number] MiraLAX 17 g daily, senna S2 tablet twice daily as needed for constipation and probiotic to be continued. Follow-up in GI office Dr. Ribeiro in 1 month time. Call PCP/GI office for further any issues. Try to avoid hypotension. Pseudomonas aeruginosa UTI: Urine positive of nitrite, WBC 5-10 cells, RBC 0-5, bacteria 2+. Patient denies increased burning with urination frequency urgency. Urine culture shows positive Pseudomonas aeruginosa. Patient on Cipro that will cover for Pseudomonas. 2. lower GI bleed most likely diverticular bleed/colitis: Patient last bleeding was, hematochezia in the morning today. H&H 14.5/43.4.Stool for occult blood positive. Rest as mentioned above. 06/29: Hemoglobin did not show major drop, above 14 g%. Platelet count normal. 07/01: H&H did not show major drop. Does not qualify for acute anemia 3. Mild to moderate nonobstructive coronary artery disease: Patient follows home comfort advisor Dr. Forrester. She is on aspirin every other day. Hold baby aspirin. Her last stress test and cardiac cath was April 2021. Her other chronic cardiac conditions include history of SVT. 4. Hypertension: Patient stated she was hypotensive with dizzy and lightheadedness at home but has recovered now. Blood pressure is in normal range. SBP in 120s. Hold antihypertensive medication. 5. Dyslipidemia: Patient on rosuvastatin continued. DVT prophylaxis: Pharmacological prophylaxis contraindicated. Bilateral SCDs. Living will/advanced directive/end of life care: Patient does have living will or advanced directive. Daughter present in ICU Mrs. Kristina Arana is power of accounting manager assistant controller for health. After discussion of benefits/risks procedures involved with full code, DNR CC arrest and DNR CC, the patient opted for DNR CC with arrest Patient doesn't want artificial life support including intubation, tube feed, ventilator and/chest compression, central venous catheter, vasopressor and DC shock if needed Microbiology Past 72 Hours 06/28/24 10:18 Urine, Clean Catch Urine Culture - Final Pseudomonas aeruginosa 06/29/24 08:20 Stool Enteric Bacteriology - Final 06/29/24 08:20 Stool Clostridioides difficile (PCR) - Final Laboratory Results 07/01/24 05:15: WBC 8.1, RBC 4.07 L, Hgb 13.4, Hct 40.6, MCV 99.8 H, MCH 32.9 H, MCHC 33.0, RDW Std Deviation 45.3 H, RDW Coeff of Braeden 12.2, Plt Count 151, MPV 11.1, Immature Gran % (Auto) 0.200, Neut % (Auto) 65.7, Lymph % (Auto) 20.4, Collier % (Auto) 9.6, Eos % (Auto) 3.2, Baso % (Auto) 0.9, Absolute Neuts (auto) 5.3, Absolute Lymphs (auto) 1.66, Nucleated RBC % 0, Differential Comment SCANNED, Sodium 141, Potassium 3.3 L, Chloride 107, Carbon Dioxide 24.0, Anion Gap 10, BUN 10, Creatinine 0.78, Estim Creat Clear Calc 45.10, Est GFR (MDRD) Af Amer 90, Est GFR (MDRD) Non-Af 74, BUN/Creatinine Ratio 12.8, Glucose 90, Calcium 8.6, Total Bilirubin 1.30 H, AST 23, ALT 28, Alkaline Phosphatase 43 L, Total Protein 5.9 L, Albumin 3.0 L, Globulin 2.9, Albumin/Globulin Ratio 1.0 Clinical Impression(s) from Imaging Studies Abdomen/Pelvis CT 06/27/24 18:32 IMPRESSION: Diverticular changes of the distal descending and sigmoid colon findings consistent with mild acute diverticulitis of the sigmoid without peridiverticular abscess. Cannot definitively exclude presence of intraluminal hemorrhage within the sigmoid versus previously ingested oral contrast Recommend clinical correlation and further assessment with radionuclide tagged red blood cell study if clinically warranted. Clinical Impression(s) from Imaging Studies Abdomen/Pelvis CT 06/27/24 18:32 IMPRESSION: Diverticular changes of the distal descending and sigmoid colon findings consistent with mild acute diverticulitis of the sigmoid without peridiverticular abscess. Cannot definitively exclude presence of intraluminal hemorrhage within the sigmoid versus previously ingested oral contrast Recommend clinical correlation and further assessment with radionuclide tagged red blood cell study if clinically warranted. Electronically Signed: Ernie Whipple MD at 19:52 EDT , Medications at Discharge Home Medications metoprolol succinate 25 mg tablet,extended release 24 hr 25 mg PO DAILY 04/14/21 mometasone-formoterol HFA 100 mcg-5 mcg/actuation aerosol inhaler 1 puff inhalation BID PRN cough 04/14/21 multivitamin 1 tab PO DAILY 04/14/21 hydroxychloroquine 200 mg tablet 200 mg PO BID 08/18/21 albuterol sulfate 90 mcg/actuation aerosol inhaler 2 inh inhalation Q6H PRN shortness of breath or wheezing 07/08/22 levothyroxine 75 mcg tablet 75 mcg PO DAILY 07/08/22 rosuvastatin 5 mg tablet See Rx Instructions .Route .COMPLEX #45 tabs 03/01/23 amiodarone 100 mg tablet See Rx Instructions .Route .COMPLEX #90 tabs 03/05/23 folic acid 1 mg tablet 1 mg PO DAILY PRN pt. unsure 09/24/23 sertraline 25 mg tablet 25 mg PO DAILY anxiety 09/24/23 L.acidophil,salivari-Bifido bifidum-Strep thermoph 175 mg capsule 1 cap PO TID #0 caps 07/01/24 aspirin 81 mg tablet,delayed release (Adult Low Dose Aspirin) 81 mg PO DAILY start prior to left heart cath 30 days #30 tabs 07/01/24 ciprofloxacin HCl 500 mg tablet (Cipro) 500 mg PO BID 10 days #20 tabs 07/01/24 metronidazole 500 mg tablet 500 mg PO Q8H 10 days #30 tabs 07/01/24 pantoprazole 40 mg tablet,delayed release 40 mg PO DAILY 30 days #30 tabs 07/01/24 polyethylene glycol 3350 17 gram/dose oral powder (Miralax) 17 g PO DAILY 1 month #510 grams 07/01/24 ramipril 5 mg capsule 5 mg PO DAILY 30 days #0 caps 07/01/24 sennosides 8.6 mg-docusate sodium 50 mg tablet (Senna-S) 2 tab-cap (2 x 8.6-50 mg) PO BID PRN constipation #30 tabs 07/01/24 Physical Exam Narrative Seen and examined Bowel movement is much regular. No bleeding. Eating soft diet. Heart rate, irregular on senior advocate Physical exam General: Alert, Oriented x3, Cooperative. Fatigue BMI 27.8 kg/m? HEENT: Atraumatic, PERRLA, EOMI, Normocephalic Oral: Oral mucosa dry. No Gingival or Mucosal Lesions/ Ulcerations Neck: Supple, No JVD, Negative Carotid Bruits Chest wall/Lungs: Air entry diminished in bilateral lung bases. No crepitation/rhonchi Cardiovascular: Irregular rhythm with PVC. Sinus bradycardia at 57/min. Normal S1, Normal S2, No M/G/R Abdomen: Bowel Sounds Present, Soft, no tenderness/rebound tenderness. Liver not enlarged. : No dysuria. No renal angle tenderness. No suprapubic tenderness. Extremities: No edema, Capillary Refill Less than 3 Seconds Skin: No rashes, No breakdown Musculoskeletal: No Tenderness to Palpation of Joints or Extremities Neurological: Cranial nerves II-XII grossly intact, DTR 2+/4. No acute focal neurological deficit. Psych/Mental Status: Flat affect. Weight / BMI Weight Weight: 152 lb 1.903 oz Body Mass Index (BMI) 27.8 ABG / Lab / Microbiology Data 07/01/24 05:15 07/01/24 05:15 Laboratory: Laboratory Results - last 24 hr 07/01/24 05:15: WBC 8.1, RBC 4.07 L, Hgb 13.4, Hct 40.6, MCV 99.8 H, MCH 32.9 H, MCHC 33.0, RDW Std Deviation 45.3 H, RDW Coeff of Braeden 12.2, Plt Count 151, MPV 11.1, Immature Gran % (Auto) 0.200, Neut % (Auto) 65.7, Lymph % (Auto) 20.4, Collier % (Auto) 9.6, Eos % (Auto) 3.2, Baso % (Auto) 0.9, Absolute Neuts (auto) 5.3, Absolute Lymphs (auto) 1.66, Nucleated RBC % 0, Differential Comment SCANNED, Sodium 141, Potassium 3.3 L, Chloride 107, Carbon Dioxide 24.0, Anion Gap 10, BUN 10, Creatinine 0.78, Estim Creat Clear Calc 45.10, Est GFR (MDRD) Af Amer 90, Est GFR (MDRD) Non-Af 74, BUN/Creatinine Ratio 12.8, Glucose 90, Calcium 8.6, Total Bilirubin 1.30 H, AST 23, ALT 28, Alkaline Phosphatase 43 L, Total Protein 5.9 L, Albumin 3.0 L, Globulin 2.9, Albumin/Globulin Ratio 1.0 Microbiology: Microbiology 06/28/24 10:18 Urine, Clean Catch Urine Culture - Final Pseudomonas aeruginosa 06/29/24 08:20 Stool Enteric Bacteriology - Final 06/29/24 08:20 Stool Clostridioides difficile (PCR) - Final 06/27/24 18:33 Stool Stool Occult Blood ([facility]) - Final Occult Blood Positive D/C Instructions Discharge Diet: Light diet - advance as tolerated (Soft consistency diet for next 3 to 4 days.) Weight Bearing Status: Weight bearing as tolerated Call your doctor if you observe: Fever of 101 or Higher, Coldness, Increased Pain, Numbness or Tingling, Change in Color, Inability to urinate, Inability to have a bowel movement, Using more than 1 pad per hour, Shortness of breath, Dizziness, Fainting spells, Swelling in the ankles, Chest pain, Prolonged hiccupping, Increased palpitations (irregular heartbeat) and Calf discomfort When: IN 2 WEEKS Meaningful Use Info Meaningful Use Meaningful Use Diagnoses (Choose all that apply): None applicable Ischemic Stroke Statin Dosing Therapy Reference: STATIN DOSE THERAPY REFERENCE: * Patients > 75 years receive moderate or high dose statin therapy. * Patients 75 years or YOUNGER should receive HIGH intensity statin dose unless contraindicated. You will be required to document reason for non-treatment if statin daily dose does not meet guidelines. HIGH DOSE STATIN THERAPY DAILY Atorvastatin > than or = to 40 mg Rosuvastatin > than or = to 20 mg Amlodipine + Atorvastatin > than or = to 2.5/40 mg Ezetimibe + Simvastatin 10/80 mg Simvastatin 80mg Discharge Plan Admission Admit Date/Time: 06/28/24 07:59 Primary Reason for Your Visit: Ischemic/inflammatory pancolitis Attending Provider: Nico Reyes Primary Care Provider: Michael Garcia Instructions Additional Instructions / Restrictions: MiraLAX, senna S and lactobacillus/probiotic are available [id number]. Does not need prescription for that. Discharge Orders/Prescriptions Prescriptions: New pantoprazole 40 mg Tablet,Delayed Release (Dr/Ec) 40 mg PO DAILY 30 Days Qty: 30 1RF L.acidoph,saliva-B.bif-S.therm 175 mg Capsule 1 cap PO TID Qty: 0 0RF Rx Instructions: Continue for about 2 months polyethylene glycol 3350 [Miralax] 17 gram/dose powder 17 g PO DAILY 30 Days Qty: 510 0RF sennosides-docusate sodium [Senna-S] 8.6-50 mg tablet 2 tab-cap PO BID PRN (Reason: constipation) Qty: 30 0RF Rx Instructions: Available [id number] ciprofloxacin HCl [Cipro] 500 mg tablet 500 mg PO BID 10 Days Qty: 20 0RF metronidazole 500 mg tablet 500 mg PO Q8H 10 Days Qty: 30 0RF Continued mometasone-formoterol 100-5 mcg/actuation HFA aerosol inhaler 1 puff inhalation BID PRN (Reason: cough) multivitamin Tablet 1 tab PO DAILY levothyroxine 75 mcg tablet 75 mcg PO DAILY albuterol sulfate 90 mcg/actuation HFA aerosol inhaler 2 inh inhalation Q6H PRN (Reason: shortness of breath or wheezing) folic acid 1 mg tablet 1 mg PO DAILY PRN (Reason: pt. unsure) metoprolol succinate 25 mg tablet extended release 24 hr 25 mg PO DAILY hydroxychloroquine 200 mg tablet 200 mg PO BID sertraline 25 mg tablet 25 mg PO DAILY ramipril 5 mg capsule 5 mg PO DAILY 30 Days Qty: 0 0RF Rx Instructions: Hold for SBP less than 130 mmHg rosuvastatin 5 mg tablet See Rx Instructions .ROUTE .COMPLEX Qty: 45 3RF Dose Instruction: TAKE 1 TABLET BY MOUTH EVERY OTHER DAY Rx Instructions: TAKE 1 TABLET BY MOUTH EVERY OTHER DAY amiodarone 100 mg tablet See Rx Instructions .ROUTE .COMPLEX Qty: 90 3RF Dose Instruction: TAKE 1 TABLET BY MOUTH EVERY DAY Rx Instructions: TAKE 1 TABLET BY MOUTH EVERY DAY Changed aspirin [Adult Low Dose Aspirin] 81 mg tablet,delayed release (DR/EC) 81 mg PO DAILY 30 Days Qty: 30 2RF Rx Instructions: Discontinue if platelet count drops less than 50,000 or hemoglobin less than 8 g% Discontinued omeprazole magnesium [Prilosec OTC] 20 mg tablet,delayed release (DR/EC) 20 mg PO DAILY PRN (Reason: heartburn) Referrals / Follow Up: Michael Garcia MD [Primary Care Provider] - Within 2 Weeks Ahmet Ribeiro DO [Med Staff - Active Staff] - Within 1 Month Disposition Disposition (needs filled in before D/C Order can be placed): Home, Self Care Charges/Coding Visit Charges Inpatient E&M: 13487 Disch Hosp >30min
== END 2024-07-01 11:21 | disposition home or self-care (01) | DRG 394 ==
LOC: ED 18:27 → ICU 06-28 09:32 → PCU 06-30 19:21
PROVIDERS: Internal Medicine Gastroenterology; Admitting Provider Internal Medicine; Emergency Provider Emergency Medicine; PCP Family Medicine; Visit Provider Internal Medicine
PROC: 0DJD8ZZ Inspection of Lower Intestinal Tract, Via Natural or Artificial Opening Endoscopic (ICD-10-PCS; CPT 45378; principal; 2024-06-29 13:40)
DX: K55.9 Vascular disorder of intestine, unspecified (principal); N39.0 Urinary tract infection, site not specified; B96.5 Pseudomonas (aeruginosa) (mallei) (pseudomallei) as the cause of diseases classified elsewhere; I10 Essential (primary) hypertension; J45.909 Unspecified asthma, uncomplicated; E03.9 Hypothyroidism, unspecified; E78.00 Pure hypercholesterolemia, unspecified; I25.10 Atherosclerotic heart disease of native coronary artery without angina pectoris; K21.9 Gastro-esophageal reflux disease without esophagitis; F41.9 Anxiety disorder, unspecified; Z79.890 Hormone replacement therapy; Z79.82 Long term (current) use of aspirin; Z79.899 Other long term (current) drug therapy; Z79.51 Long term (current) use of inhaled steroids; Z90.49 Acquired absence of other specified parts of digestive tract; Z98.49 Cataract extraction status, unspecified eye; Z90.710 Acquired absence of both cervix and uterus; Z96.653 Presence of artificial knee joint, bilateral
CPT/HCPCS: 36415; 74177; 80048; 80053; 81001; 82274; 83605; 84439; 84443; 84484; 85014; 85018; 85025; 85027; 85610; 85730; 86850; 86900; 86901; 87077; 87086; 87088; 87184; 87186; 87493; 87506; 88305; 93005; 94640; 94668; 94762; 96372; 96374; 96375; 96376; 97161; 97166; 99252; 99285; J7030; Q9967; A4216; G0463; J2405

== ENCOUNTER → 2024-11-21 | Outpatient (CLI) | payer MEDICARE, BC, SELFPAY ==
[2024-11-21 12:08] LABS: Absolute Lymphocyte Count 1.41 X10^3/uL (0.83-4.51); Absolute Neutrophil Count 3.9 X10^3/uL (2.0-7.7); Basophil# 0.09 X10^3/uL; Basophil% 1.4 % (0-1); Eosinophil# 0.23 X10^3/uL; Eosinophils% 3.6 % (0-5); Hematocrit 44.4 % (37-47); Hemoglobin 14.8 g/dL (12.0-15.0); Lymphocyte # 1.41 X10^3/ul (0.83-4.51); Lymphocyte % 21.8 % (19-41); Mean Corp Hgb Conc 33.3 g/dL (32-36); Mean Corpuscular Hgb 33.6 pg (27.0-32.0); Mean Corpuscular Volume 100.9 fL (81-99); Mean Platelet Vol. 10.9 fl (6.2-12.0); Monocyte# 0.84 X10^3/uL; NRBC Flagged by Analyzer 0 % (0-5); Neutrophil # 3.89 X10^3/uL (2.7-7.7); Platelet Count 178 K/mm3 (150-450); RBC Distribution Width CV 12.2 % (11.6-14.6); RBC Distribution Width SD 45.7 fl (35.1-43.9); White Blood Count 6.5 K/mm3 (4.4-11.0)
[2024-11-21 12:19] LABS: ALB/GLOB Ratio 0.9 RATIO (0.9-2.4); AST(SGOT) 26 U/L (15-37); Alanine Aminotransfer ALT/SGPT 42 U/L (13-56); Albumin, Serum 3.5 g/dL (3.2-5.0); Alkaline Phosphatase 46 U/L (45-117); Anion Gap 8 (5-15); BUN 13 mg/dL (7-18); BUN/Creat Ratio 19.4 RATIO (10-20); Chloride 106 mmol/L (98-107); Creatinine, Serum 0.67 mg/dL (0.55-1.02); EST Glomerular Filtration Rate 89 mL/min (>60); Est Glom Filt Rate - Afr Amer 107 mL/min (>60); Globulin 3.8 g/dL (2.2-4.2); Glucose 79 mg/dL (74-106); Potassium 4.5 mmol/L (3.5-5.1); Protein, Total 7.3 g/dL (6.4-8.2); Sodium Level 138 mmol/L (136-145)
== END | disposition home or self-care (01) ==
LOC: MTLAB 10:12
PROVIDERS: PCP Family Medicine; Referring Provider Internal Medicine Rheumatology; Visit Provider Internal Medicine Rheumatology
DX: M06.4 Inflammatory polyarthropathy (principal); M15.9 Polyosteoarthritis, unspecified; Z79.899 Other long term (current) drug therapy
CPT/HCPCS: 36415; 80053; 85025

== ENCOUNTER 2024-12-14 05:21 | Day surgery (SDC) | payer MEDICARE, BC, SELFPAY ==
--- NOTE | 2024-12-11 16:22 | PAT.ANESEVAL ---
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 When Was Last Pacemaker Check QUESTION #4 FULL TEXT: You/Your Family Experience fever (hyperthermia) with Anesthesia Last Oral Intake Last Oral intake: Last Oral Intake NPO since Meds taken in AM with sips of water? Meds patient instructed to take am of surgery PONV PONV - preschool program director: PONV - preschool program director Female Yes 12/11/24 15:50 HX of Motion Sickness Yes 12/11/24 15:50 HX of N/V After Surgery No 12/11/24 15:50 Non-Smoker Yes 12/11/24 15:50 Duration of Surgery greater No 12/11/24 15:50 than 60 minutes Number of Risk Factors 3 12/11/24 15:50 PONV Score Moderate Risk 12/11/24 15:50 Height & Weight Height & Weight: Anesthesia: Height & Weight Height 5 ft 2 in 07/25/24 11:14 Respiratory Assessment Respiratory Assessment - preschool program director: Respiratory Tract Infection Hx - preschool program director Hx Respiratory Tract Infection No 12/11/24 15:50 STOP Sleep Apnea STOP Sleep Apnea - preschool program director: STOP Sleep Apnea - preschool program director Hx Hypertension Yes: per pt, CONTROLLED WITH 12/11/24 15:50 MED Hx Sleep Apnea No 12/11/24 15:50 CPAP BIPAP Do you snore loudly (louder No 12/11/24 15:50 than talking or can be heard Do you often feel tired/ No 12/11/24 15:50 fatigued/ sleepy during daytime? Has anyone observed you stop No 12/11/24 15:50 breathing during sleep? STOP Results Negative 12/11/24 15:50 QUESTION #5 FULL TEXT : Do you snore loudly (louder than talking or can be heard through closed doors)? Tobacco Use History Tobacco Use History - preschool program director: Tobacco Use History - preschool program director Tobacco Use Non-smoker 04/07/21 11:47 Smoking Status Never smoker 12/11/24 15:50 Hx Tobacco Use No 12/11/24 15:50 Years Smoking Packs Smoked per Day Smoking Cessation Date was within the last 15 years Hx Smoking Cessation Date Hx Smoking Cessation Counseling Hematologic Medial History Hematologic Hx - preschool program director: Hematologic Medical Hx - department director Hx of Blood Transfusion No 12/11/24 15:50 Hx of Transfusion in last 3 No 12/11/24 15:50 Months Date of Last Transfusion (if within last 3 months) Ever experience any problems No 12/11/24 15:50 with transfusion(s)? Specify any problems Hx of Preganancy in last 3 No 12/11/24 15:50 Months Nurse Filling Out Transfusion MGRIFFITH 12/11/24 15:50 & Questions: Date: 12/11/24 12/11/24 15:50 Time: 15:53 12/11/24 15:50 Patient unable to answer at this time (ie. confused, unrespo /Reproduction History /Reproductive History - preschool program director: /Reproductive Hx- preschool program director Hx Now Gestational Age (in weeks): EDC: Hx Hx Para Hx Section SAB PFSH Medical History (Updated 12/11/24 @ 16:00 by Kaylan Copeland) Alcohol use Easy bruising History of GI bleed Gastric reflux Acute ischemic colitis Acute colitis Minor surgery performed Wears glasses Anxiety Thyroid disease Arthritis High cholesterol History of diverticulitis PONV (postoperative nausea and vomiting) Non-smoker History of stress test History of echocardiogram Hypertension Cardiology follow-up encounter History of left heart catheterization (05/19/21) Atherosclerosis of coronary artery bypass graft of [place] heart with angina pectoris Spinal stenosis Osteopenia Essential hypertension Hypothyroidism Hyperlipidemia Rheumatoid arthritis Hiatal hernia Generalized osteoarthrosis, unspecified site GERD (gastroesophageal reflux disease) Depressive disorder Asthma Home Medications ?Medication ?Instructions ?Recorded ?Last Taken ?Type mometasone-formoterol HFA 100 1 puff inhalation BID PRN cough 04/14/21 Unknown History mcg-5 mcg/actuation aerosol inhaler hydroxychloroquine 200 mg tablet 200 mg PO BID 08/18/21 Unknown History albuterol sulfate 90 mcg/actuation 2 inh inhalation Q6H PRN shortness 07/08/22 Unknown History aerosol inhaler of breath or wheezing rosuvastatin 5 mg tablet See Rx Instructions .Route 03/01/23 Unknown Rx .COMPLEX #45 tabs amiodarone 100 mg tablet See Rx Instructions .Route 03/05/23 08/09/23 Rx .COMPLEX #90 tabs sertraline 25 mg tablet 25 mg PO DAILY anxiety 09/24/23 Unknown History aspirin 81 mg tablet,delayed 81 mg PO DAILY start prior to left 07/01/24 Unknown Rx release (Adult Low Dose Aspirin) heart cath 30 days #30 tabs sennosides 8.6 mg-docusate sodium 2 tab-cap (2 x 8.6-50 mg) PO BID 07/01/24 Unknown Rx 50 mg tablet (Senna-S) PRN constipation #30 tabs omeprazole 20 mg capsule,delayed 20 mg PO QDAY 07/28/24 Unknown History release lactobacillus combo no.11 15 1 cap PO BID 12/11/24 Unknown History billion cell sprinkle capsule (Probiotic) levothyroxine 75 mcg tablet 75 mcg PO DAILY 12/11/24 Unknown History losartan 25 mg tablet 25 mg PO DAILY 12/11/24 Unknown History metoprolol succinate 25 mg 25 mg PO 1200 12/11/24 Unknown History tablet,extended release 24 hr polyethylene glycol 3350 17 17 g PO DAILY PRN constipation 12/11/24 Unknown History gram/dose oral powder (Miralax) potassium chloride 10 mEq 10 meq PO DAILY 12/11/24 Unknown History tablet,extended release Allergy/AdvReac Type Severity Reaction Status Date / Time simvastatin AdvReac Unknown Other Verified 12/11/24 15:39 atorvastatin calcium (From AdvReac Other Verified 12/11/24 15:39 Lipitor) Family History Mother Diabetes Father Cancer CAD (coronary artery disease) Sister No problems noted. Surgical History History of cardiac catheterization History of esophageal hernia repair History of hysterectomy History of total bilateral knee replacement History of umbilical hernia repair History of cholecystectomy History of esophagogastroduodenoscopy (EGD) History of colonoscopy History of cataract extraction History of appendectomy Social History Smoking Status: Never smoker alcohol intake: current substance use type: does not use Audit: Pertinent Findings Pertinent Findings EKG Perinent findings: 06/29/2024 sinus bradycardia 58 bpm otherwise normal EKG Echo (EF%) pertinent findings: 04/25/2021 EF 50% pulmonary artery pressure 38 Consult pertinent findings: 07/25/2024 coronary artery disease mild to moderate last stress test and cardiac catheterization in April 2021. No significant abnormalities present. Continue current medical therapy. History of SVT no changes. Chronic hypertension Recommendation Anesthesia Recommendation Anesthesia recommendation: OPTIMIZED for anesthesia
[2024-12-14] VITALS (8 sets, daily range): BP systolic 90–116; BP diastolic 64–70; PULSE 60–72; RESP 12–18; TEMP 36.4–36.8; O2SAT 94–97; BMI 26.2
--- NOTE | 2024-12-14 06:14 | PRE.ANES_ITS ---
ASA Classification* ASA Classification ASA Classification: 2 Assessment & Plan Anesthesia* Anesthesia Assessment Anesthesia Assessment: Discussed sedation and/or anesthesia options, risks, benefits, and alternatives with patient/parents/legal guardian/POA. Questions invited. The patient/parents/legal guardian/POA seems to understand and agrees to proceed with anesthesia plan. Reviewed the physical assessment, medical history, allergy history and patient home medications list prior to surgery/procedure/anesthetic and documented any changes. Performed airway and anesthesia risk assessments. Anesthesia Type Anesthesia Type: MAC History Source History Obtained from:: Patient and Chart Anesthesia Focused Assessment* Temperature: 98.2 F Pulse Rate: 60 Blood Pressure: 116/70 Respiratory Rate: 18 Pulse Ox: 94 Oxygen Delivery Method: Room Air Airway Assessment Mouth opens: >3 cm Mallampati Score: III Teeth Condition: Caps/Crowns (Patient has multiple caps and crowns. They are all tight.) Neck Range of motion (ROM): Limited ROM (Somewhat decreased extension) Focused Labs Anesthesia Preop lab: CBC WBC 6.5 K/mm3 (4.4-11.0) 11/21/24 10:17 11/21/24 RBC 4.40 M/mm3 (4.2-5.4) 11/21/24 10:17 11/21/24 Hgb 14.8 g/dL (12.0-15.0) 11/21/24 10:17 11/21/24 Hct 44.4 % (37-47) 11/21/24 10:17 11/21/24 Plt Count 178 K/mm3 (150-450) 11/21/24 10:17 11/21/24 CHEMISTRY Potassium 4.5 mmol/L (3.5-5.1) 11/21/24 10:17 11/21/24 Sodium 138 mmol/L (136-145) 11/21/24 10:17 11/21/24 BUN 13 mg/dL (7-18) 11/21/24 10:17 11/21/24 Creatinine 0.67 mg/dL (0.55-1.02) 11/21/24 10:17 11/21/24 Glucose 79 mg/dL (74-106) 11/21/24 10:17 11/21/24 TSH 1.600 uIU/mL (0.358-3.740) 06/29/24 03:54 09/0 03/17 COAG PT 12.8 SECONDS (11.7-14.9) 06/27/24 17:14 Pre-Assessment Diagnosis/Proposed Procedure Planned Operative Procedure(s): Colonoscopy Anesthesia History Anesthesia History - sheet rock taper helper: Anesthesia History - sheet rock taper helper Hx Hospitalization Yes: 06/2024 Acute Colitis 12/11/24 15:50 Any Problems With Anesthesia No 12/11/24 15:50 Cholinesterase deficiency No 12/11/24 15:50 You/Your Family Experience No 12/11/24 15:50 fever (hyperthermia) with Relationship Recent Exposure to Contagious No 12/14/24 05:48 Disease Does patient have nerve No 12/11/24 15:50 stimulator Patient instructed to have device shut off --Does patient have Pacemaker No 12/14/24 05:49 or ICD? When Was Last Pacemaker Check QUESTION #4 FULL TEXT: You/Your Family Experience fever (hyperthermia) with Anesthesia Last Oral Intake Last Oral intake: Last Oral Intake NPO since 03:00 12/14/24 05:49 Meds taken in AM with sips of Yes 12/14/24 05:49 water? Meds patient instructed to take am of surgery Any additional information?: Yes NPO since: 03:00 (Patient finished prep at 3 AM.) Meds taken in AM with sips of water?: Yes PONV PONV - sheet rock taper helper: PONV - sheet rock taper helper Female Yes 12/11/24 15:50 HX of Motion Sickness Yes 12/11/24 15:50 HX of N/V After Surgery No 12/11/24 15:50 Non-Smoker Yes 12/11/24 15:50 Duration of Surgery greater No 12/11/24 15:50 than 60 minutes Number of Risk Factors 3 12/11/24 15:50 PONV Score Moderate Risk 12/11/24 15:50 Height & Weight Height & Weight: Anesthesia: Height & Weight Height 5 ft 4 in 12/14/24 05:49 Weight: 69.4 kg 12/14/24 05:49 Body Mass Index (BMI) 26.2 12/14/24 05:49 Respiratory Assessment Respiratory Assessment - sheet rock taper helper: Respiratory Tract Infection Hx - sheet rock taper helper Hx Respiratory Tract Infection No 12/11/24 15:50 STOP Sleep Apnea STOP Sleep Apnea - sheet rock taper helper: STOP Sleep Apnea - sheet rock taper helper Hx Hypertension Yes: per pt, CONTROLLED WITH 12/11/24 15:50 MED Hx Sleep Apnea No 12/11/24 15:50 CPAP BIPAP Do you snore loudly (louder No 12/11/24 15:50 than talking or can be heard Do you often feel tired/ No 12/11/24 15:50 fatigued/ sleepy during daytime? Has anyone observed you stop No 12/11/24 15:50 breathing during sleep? STOP Results Negative 12/11/24 15:50 QUESTION #5 FULL TEXT : Do you snore loudly (louder than talking or can be heard through closed doors)? Tobacco Use History Tobacco Use History - sheet rock taper helper: Tobacco Use History - sheet rock taper helper Tobacco Use Non-smoker 04/07/21 11:47 Smoking Status Never smoker 12/11/24 15:50 Hx Tobacco Use No 12/11/24 15:50 Years Smoking Packs Smoked per Day Smoking Cessation Date was within the last 15 years Hx Smoking Cessation Date Hx Smoking Cessation Counseling Hematologic Medial History Hematologic Hx - sheet rock taper helper: Hematologic Medical Hx - grader green meat Hx of Blood Transfusion No 12/11/24 15:50 Hx of Transfusion in last 3 No 12/11/24 15:50 Months Date of Last Transfusion (if within last 3 months) Ever experience any problems No 12/11/24 15:50 with transfusion(s)? Specify any problems Hx of Preganancy in last 3 No 12/11/24 15:50 Months Nurse Filling Out Transfusion MGRIFFITH 12/11/24 15:50 & Questions: Date: 12/11/24 12/11/24 15:50 Time: 15:53 12/11/24 15:50 Patient unable to answer at this time (ie. confused, unrespo /Reproduction History /Reproductive History - sheet rock taper helper: /Reproductive Hx- sheet rock taper helper Hx Now Gestational Age (in weeks): EDC: Hx Hx Para Hx Section SAB PFSH Medical History Alcohol use Easy bruising History of GI bleed Gastric reflux Acute ischemic colitis Acute colitis Minor surgery performed Wears glasses Anxiety Thyroid disease Arthritis High cholesterol History of diverticulitis PONV (postoperative nausea and vomiting) Non-smoker History of stress test History of echocardiogram Hypertension Cardiology follow-up encounter History of left heart catheterization (05/19/21) Atherosclerosis of coronary artery bypass graft of [place] heart with angina pectoris Spinal stenosis Osteopenia Essential hypertension Hypothyroidism Hyperlipidemia Rheumatoid arthritis Hiatal hernia Generalized osteoarthrosis, unspecified site GERD (gastroesophageal reflux disease) Depressive disorder Asthma Home Medications ?Medication ?Instructions ?Recorded ?Last Taken ?Type mometasone-formoterol HFA 100 1 puff inhalation BID IN N cough 04/14/21 Unknown History mcg-5 mcg/actuation aerosol inhaler hydroxychloroquine 200 mg tablet 200 mg PO BID 1 12/13/24 History albuterol sulfate 90 mcg/actuation 2 inh inhalation Q6 H PRN shortness 07/08/22 Unknown History aerosol inhaler of breath or wheezing rosuvastatin 5 mg tablet See Rx Instructions .Route 0 03/01/23 12/12/24 Rx .COMPLEX #45 tabs amiodarone 100 mg tablet See Rx Instructions .Route 0 03/05/23 12/14/24 03:00 Rx .COMPLEX #90 tabs sertraline 25 mg tablet 25 mg PO DAILY anxiety 09/2412/13/24 History aspirin 81 mg tablet,delayed 81 mg PO DAILY start prio r to left 07/01/24 12/14/24 03:00 Rx release (Adult Low Dose Aspirin) heart cath 30 days #3 0 tabs sennosides 8.6 mg-docusate sodium 2 tab-cap (2 x 8.6-5 0 mg) PO BID 07/01/24 Unknown Rx 50 mg tablet (Senna-S) PRN constipation #30 tabs omeprazole 20 mg capsule,delayed 20 mg PO QDAY 4 Unknown History release lactobacillus combo no.11 15 1 cap PO BID 12/11/24 History billion cell sprinkle capsule (Probiotic) levothyroxine 75 mcg tablet 75 mcg PO DAILY 12/11/24 0 12/14/24 03:00 History losartan 25 mg tablet 25 mg PO DAILY 12/11/2411/26 03:00 History metoprolol succinate 25 mg 25 mg PO 1200 12/11/2411/26 03:00 History tablet,extended release 24 hr polyethylene glycol 3350 17 17 g PO DAILY PRN constipa tion 12/11/24 Unknown History gram/dose oral powder (Miralax) potassium chloride 10 mEq 10 meq PO DAILY 12/11/24 History tablet,extended release Allergy/AdvReac Type Severity Reaction Status Date / Time simvastatin AdvReac Unknown Other Verified 12/14/24 05:44 atorvastatin calcium (From AdvReac Other Verified 12/14/24 05:44 Lipitor) Family History Mother Diabetes Father Cancer CAD (coronary artery disease) Sister No problems noted. Surgical History History of cardiac catheterization History of esophageal hernia repair History of hysterectomy History of total bilateral knee replacement History of umbilical hernia repair History of cholecystectomy History of esophagogastroduodenoscopy (EGD) History of colonoscopy History of cataract extraction History of appendectomy Social History Smoking Status: Never smoker alcohol intake: current substance use type: does not use Review of Systems (Anesthesia) ROS Narrative System reviewed and no additional complaints, except as documented.
--- NOTE | 2024-12-14 06:45 | PCM.HP.STD ---
HPI - General General Date of Admission: 12/14/24 Date of Service: 12/14/24 Chief Complaint: GI bleed HPI Narrative DEBBY TOVAR, is a 89 F who presents for colonoscopy after GI bleed [facility] hosptialization 06.28.24 - 07.01.24 GI bleed - presented to the ED with low blood pressure, concern for GI bleed. Patient states she has had low blood pressure at home was 80s over 60s, she notes she feels lightheaded and nauseous. She said the same thing happened 6 weeks ago and she was diagnosed with acute diverticulitis. abd/pelvis CT 9.01.15 Diverticular changes of the distal descending and sigmoid colon findings consistent with mild acute diverticulitis of the sigmoid without peridiverticular abscess. Cannot definitively exclude presence of intraluminal hemorrhage within the sigmoid versus previously ingested oral contrast Recommend clinical correlation and further assessment with radionuclide tagged red blood cell study if clinically warranted. Colonoscopy 06.29.24 Diffuse severe inflammation was found in the descending colon, at the splenic flexure, in the transverse colon, at the hepatic flexure and in the ascending colon secondary to ischemic colitis. Biopsied. *BGI established 10.02.15 pt reports that since being in the hospital she is feeling well, she denies blood in her stool. She has cut back on her miralax and senna due to diarrhea and leakage. Pt reports ongoing gas/bloating, will occasionally take a gas-x. Pt reports that her PCP ordered some blood work recently and her liver function and potassium came back low, was given potassium supplements, but states that after taking her first dose the pill passed whole in her stool. [facility] Medical History Alcohol use Easy bruising History of GI bleed Gastric reflux Acute ischemic colitis Acute colitis Minor surgery performed Wears glasses Anxiety Thyroid disease Arthritis High cholesterol History of diverticulitis PONV (postoperative nausea and vomiting) Non-smoker History of stress test History of echocardiogram Hypertension Cardiology follow-up encounter History of left heart catheterization (05/19/21) Atherosclerosis of coronary artery bypass graft of [place] heart with angina pectoris Spinal stenosis Osteopenia Essential hypertension Hypothyroidism Hyperlipidemia Rheumatoid arthritis Hiatal hernia Generalized osteoarthrosis, unspecified site GERD (gastroesophageal reflux disease) Depressive disorder Asthma Home Medications ?Medication ?Instructions ?Recorded ?Last Taken ?Type mometasone-formoterol HFA 100 1 puff inhalation BID PRN cough 04/14/21 Unknown History mcg-5 mcg/actuation aerosol inhaler hydroxychloroquine 200 mg tablet 200 mg PO BID 08/18/21 12/13/24 History albuterol sulfate 90 mcg/actuation 2 inh inhalation Q6H PRN shortness 07/08/22 Unknown History aerosol inhaler of breath or wheezing rosuvastatin 5 mg tablet See Rx Instructions .Route 03/01/23 12/12/24 Rx .COMPLEX #45 tabs amiodarone 100 mg tablet See Rx Instructions .Route 03/05/23 12/14/24 03:00 Rx .COMPLEX #90 tabs sertraline 25 mg tablet 25 mg PO DAILY anxiety 09/24/23 12/13/24 History aspirin 81 mg tablet,delayed 81 mg PO DAILY start prior to left 07/01/24 12/14/24 03:00 Rx release (Adult Low Dose Aspirin) heart cath 30 days #30 tabs sennosides 8.6 mg-docusate sodium 2 tab-cap (2 x 8.6-50 mg) PO BID 07/01/24 Unknown Rx 50 mg tablet (Senna-S) PRN constipation #30 tabs omeprazole 20 mg capsule,delayed 20 mg PO QDAY 07/28/24 Unknown History release lactobacillus combo no.11 15 1 cap PO BID 12/11/24 12/13/24 History billion cell sprinkle capsule (Probiotic) levothyroxine 75 mcg tablet 75 mcg PO DAILY 12/11/24 12/14/24 03:00 History losartan 25 mg tablet 25 mg PO DAILY 12/11/24 12/14/24 03:00 History metoprolol succinate 25 mg 25 mg PO 1200 12/11/24 12/14/24 03:00 History tablet,extended release 24 hr polyethylene glycol 3350 17 17 g PO DAILY PRN constipation 12/11/24 Unknown History gram/dose oral powder (Miralax) potassium chloride 10 mEq 10 meq PO DAILY 12/11/24 12/13/24 History tablet,extended release Allergy/AdvReac Type Severity Reaction Status Date / Time simvastatin AdvReac Unknown Other Verified 12/14/24 05:44 atorvastatin calcium (From AdvReac Other Verified 12/14/24 05:44 Lipitor) Family History Mother Diabetes Father Cancer CAD (coronary artery disease) Sister No problems noted. Surgical History History of cardiac catheterization History of esophageal hernia repair History of hysterectomy History of total bilateral knee replacement History of umbilical hernia repair History of cholecystectomy History of esophagogastroduodenoscopy (EGD) History of colonoscopy History of cataract extraction History of appendectomy Social History Smoking Status: Never smoker alcohol intake: current substance use type: does not use ROS Constitutional Constitutional: Denies fatigue, fever(s), poor appetite, weight gain or weight loss Gastrointestinal Gastrointestinal: Denies belching, bloating, change in bowel habits, change in stool character, chewing difficulty, coffee ground emesis, constipation, cramping, diarrhea, dyspepsia, dysphagia, early satiety, excessive flatus, fecal incontinence, heartburn, hematemesis, hematochezia, hemorrhoids, loose stools, melena, nausea, odynophagia, rectal bleeding, tenesmus, vomiting or weight changes Vital Signs Vital Signs Vital Signs: 12/14/24 05:48 12/14/24 05:49 12/14/24 06:19 Temperature 98.2 F 98.2 F Temperature Source Temporal Pulse Rate 60 60 Respiratory Rate 18 18 Respiratory Pattern Normal Blood Pressure 116/70 116/70 Blood Pressure Mean 85 Blood Pressure Source Monitor Blood Pressure Position Semi-Fowlers Blood Pressure Location Left Arm Pulse Ox 94 94 Oxygen Delivery Method Room Air Room Air Weight Weight: 153 lb Body Mass Index (BMI) 26.2 Physical Exam Const alert, oriented x3, no apparent distress and healthy appearing General Appearance: cooperative GI normal to inspection, nondistended, normoactive bowel sounds, soft to palpation, non-tender and non-distended Percussion: normal to percussion Rectal Exam: deferred Assessment & Plan Assessment/Plan (1) Acute ischemic colitis: PLAN: Assessment and Plan Assessment and Plan (1) Acute ischemic colitis: Status: Acute Plan: 89 F presented to the ED with low blood pressure, concern for GI bleed. Patient states she has had low blood pressure at home was 80s over 60s, she notes she feels lightheaded and nauseous. She said the same thing happened 6 weeks ago and she was diagnosed with acute diverticulitis. She was on 2 weeks of antibiotics and got better. Notes bowel movements and dry heaves for the last hour. Per the patient's daughter and patient was attending use of bathroom but could not she became lightheaded dizzy pale and warm. This resolved however daughter notes over last 3 to 4 hours patient's had multiple large bloody bowel movements. It was determined that her subacute abdominal pain most likely due to pancolitis most likely ischemic colitis: Patient is being admitted in the ICU as PCU status. CT abdomen individually reviewed. It shows diverticular changes of distal descending and sigmoid colon with mild acute diverticulitis of the sigmoid without peridiverticular abscess. On my review, found stool/fecal matter over ascending colon. Stool for enteric panel and C. difficile were negative. She was started on IV Zosyn. Patient has leukocytosis with mainly neutrophils. Her stool for occult blood was positive. Stool for enteric bacteriology panel and C. difficile pending. Patient evaluated by veneer clipper and plan for colonoscopy today. Differential are left-sided inflammatory colitis, infectious colitis, ischemic colitis/ulcerative colitis. 06/30: Colonoscopy on 06/29. Stool for C. difficile and enteric bacteriology panel negative. Impressions : - Diffuse severe inflammation was found in the descending colon, at the splenic flexure, in the transverse colon, at the hepatic flexure and in the ascending colon secondary to ischemic colitis. Biopsied. Recommendations : -Stop stool softener 2-week course of antibiotics -Lactobacillus containing antibiotic for the next 3 months once a day -81 mg of aspirin per day. Previously patient was on aspirin 81 mg MWF changed to daily. - Repeat colonoscopy is recommended for surveillance.
--- NOTE | 2024-12-14 07:21 | PCM.POST.ANE ---
Anesthesia: Postop Eval I Current Vital Signs Temperature: 97.6 F Pulse Rate: 71 Blood Pressure: 103/65 Respiratory Rate: 16 Pulse Ox: 97 Oxygen Delivery Method: Room Air Assessment Airway patent: Yes Spontaneous unlabored respirations: Yes Mental status: Asleep nausea: No Vomiting: No Anesthesia Complication: No Fluid Hydration Crystalloid volume administer (ml): 40 Total IV fluid infused: 40 Progress Note Anesthesia document: Postop Eval 1 completed: Yes
--- NOTE | 2024-12-14 07:23 | OP.CCLET_ITS ---
12/14/2024 Michael Garcia [address] [place] [address] Re : Colonoscopy procedure for Zunilda Beacondrea Dear Dr. Garcia This procedure was performed on November. My impressions and recommendations are as follows: Impressions : - Diverticulosis in the sigmoid colon. Clip was placed. 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 - The examination was otherwise normal on direct and retroflexion views. - No specimens collected. Recommendations : - Discharge patient to home. - Resume previous diet. - Continue present medications. - No repeat colonoscopy due to age. My findings are described in the full procedure note, which is enclosed. If I can be of further assistance, please feel free to contact me at . Sincerely, Ahmet Ribeiro, 12/14/2024 7:21:44 AM This report has been signed electronically.
--- NOTE | 2024-12-14 07:23 | OP.COLON_ITS ---
Patient Name: Zunilda Mercado Procedure Date: 12/14/2024 6:26 AM Date of : 1935 Age: 89 Procedure: Colonoscopy Indications: Hematochezia Providers: Ahmet Ribeiro DO Referring MD: Michael Garcia Medicines: Monitored Anesthesia Care Patient Profile: This is an 89 year old female. Refer to note in patient chart for documentation of history and physical. Last Colonoscopy: several years ago. Complications: No immediate complications. Procedure: Pre-Anesthesia Assessment: - Prior to the procedure, a History and Physical was performed, and patient medications and allergies were reviewed. The patient is competent. The risks and benefits of the procedure and the sedation options and risks were discussed with the patient. All questions were answered and informed consent was obtained. Patient identification and proposed procedure were verified by the physician in the pre-procedure area. Mental Status Examination: alert and oriented. Airway Examination: normal oropharyngeal airway and neck mobility. Respiratory Examination: clear to auscultation. CV Examination: normal. Prophylactic Antibiotics: The patient does not require prophylactic antibiotics. Prior Anticoagulants: The patient has taken no anticoagulant or antiplatelet agents except for NSAID medication. ASA Grade Assessment: II - A patient with mild systemic disease. After reviewing the risks and benefits, the patient was deemed in satisfactory condition to undergo the procedure. The anesthesia plan was to use monitored anesthesia care (MAC). Immediately prior to administration of medications, the patient was re-assessed for adequacy to receive sedatives. The heart rate, respiratory rate, oxygen saturations, blood pressure, adequacy of pulmonary ventilation, and response to care were monitored throughout the procedure. The physical status of the patient was re-assessed after the procedure. After I obtained informed consent, the scope was passed under direct vision. Throughout the procedure, the patient's blood pressure, pulse, and oxygen saturations were monitored continuously. The Colonoscope was introduced through the anus and advanced to the cecum, identified by appendiceal orifice and ileocecal valve. The colonoscopy was performed without difficulty. The patient tolerated the procedure well. The quality of the bowel preparation was adequate. The ileocecal valve, appendiceal orifice, and rectum were photographed. Scope In: 6:54:54 AM Scope Withdrawal Time 0 hours 7 minutes 43 seconds Scope Out: 7:13:08 AM Total Procedure Duration Time 0 hours 18 minutes 14 seconds Findings: The perianal and digital rectal examinations were normal. Multiple small and large-mouthed diverticula were found in the sigmoid colon. To stop active bleeding, one hemostatic clip was successfully placed. 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 There was no bleeding at the end of the procedure. The exam was otherwise without abnormality on direct and retroflexion views. Impression: - Diverticulosis in the sigmoid colon. Clip was placed. 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 - The examination was otherwise normal on direct and retroflexion views. - No specimens collected. Recommendation: - Discharge patient to home. - Resume previous diet. - Continue present medications. - No repeat colonoscopy due to age. Procedure Code(s): --- Professional --- 29724, Colonoscopy, flexible; with control of bleeding, any method CPT copyright 2021 [employer]. All rights reserved. The codes documented in this report are preliminary and upon web ui designer review may be revised to meet current compliance requirements. Ahmet Ribeiro DO 12/14/2024 7:21:44 AM This report has been signed electronically. Number of Addenda: 0 Note Initiated On: 12/14/2024 6:26 AM
--- NOTE | 2024-12-14 08:41 | PCM.POSTANE2 ---
Anesthesia Postop Eval I Sum Postop Eval Completion status Anesthesia document: Postop Eval 1 completed: Yes Anesthesia Postop Eval I Summary Anesthesia Postop Eval I Summary: Anesthesia Postop Eval I: Assessment Summary Airway patent Yes 12/14/24 07:22 [email or web address] Spontaneous unlabored Yes 12/14/24 07:22 [email or web address] respirations Mental status Asleep 12/14/24 07:22 [email or web address] nausea No 12/14/24 07:22 [email or web address] Vomiting No 12/14/24 07:22 [email or web address] Anesthesia Postop Eval I: Fluid Summary Crystalloid volume administer 40 12/14/24 07:22 [email or web address] (ml) Colloids volume administered ( ml) Blood Product volume administered (ml) Total IV fluid infused 40 12/14/24 07:22 [email or web address] Anesthesia Postop Eval I: Summary Notes Anesthesia Complication No 12/14/24 07:22 [email or web address] Anesthesia Complication Comment: Post-operative progress note Anesthesia: Postop Eval II Evaluation Mental status: Awake and Calm Pain Level: 0 nausea: No Vomiting: No Complications Anesthesia Complication: No
== END 2024-12-14 08:07 | disposition home or self-care (01) ==
LOC: EN 05:21 → AC 05:22
PROVIDERS: PCP Family Medicine; Referring Provider Family Medicine; Visit Provider Internal Medicine Gastroenterology
PROC: 0DJD8ZZ Inspection of Lower Intestinal Tract, Via Natural or Artificial Opening Endoscopic (ICD-10-PCS; CPT 45378; principal; 2024-12-14 06:25)
DX: K57.30 Diverticulosis of large intestine without perforation or abscess without bleeding (principal); K21.9 Gastro-esophageal reflux disease without esophagitis; I10 Essential (primary) hypertension; Z90.710 Acquired absence of both cervix and uterus; E78.00 Pure hypercholesterolemia, unspecified; K55.9 Vascular disorder of intestine, unspecified; Z79.82 Long term (current) use of aspirin; I25.10 Atherosclerotic heart disease of native coronary artery without angina pectoris; R19.7 Diarrhea, unspecified
CPT/HCPCS: 45382; J2405

== ENCOUNTER → 2025-05-21 | Outpatient (CLI) | payer MEDICARE, BC, SELFPAY ==
[2025-05-21 19:51] LABS: AST(SGOT) 34 U/L (<=31); Alanine Aminotransfer ALT/SGPT 32 U/L (<=34); Albumin, Serum 4.3 g/dL (3.4-4.8); Alkaline Phosphatase 55 U/L (35-104); Anion Gap 13 (5-15); BUN 15 mg/dL (4-19); BUN/Creat Ratio 19.2 RATIO (10-20); Calcium,Total 9.3 mg/dL (7.6-11.0); Carbon Dioxide 22.7 mmol/L (21.0-32.0); Chloride 101 mmol/L (98-108); Globulin 2.5 g/dL (2.2-4.2); Glucose 97 mg/dL (70-99); Potassium 4.0 mmol/L (3.3-5.1)
[2025-05-21 19:59] LABS: Hematocrit 43.4 % (37-47); Hemoglobin 14.4 g/dL (12.0-15.0); Immature Granulocytes Count 0.010 X10^3/uL (0.0-0.0); Mean Corp Hgb Conc 33.2 g/dL (32-36); Mean Corpuscular Volume 100.0 fL (81-99); Mean Platelet Vol. 11.3 fl (6.2-12.0); NRBC Flagged by Analyzer 0 % (0-5); Platelet Count 202 K/mm3 (150-450); RBC Distribution Width CV 12.2 % (11.6-14.6); RBC Distribution Width SD 45.5 fl (35.1-43.9); Red Blood Count 4.34 M/mm3 (4.2-5.4); White Blood Count 7.0 K/mm3 (4.4-11.0)
== END | disposition home or self-care (01) ==
LOC: MTLAB 14:50
PROVIDERS: PCP Family Medicine; Referring Provider Internal Medicine Rheumatology; Visit Provider Internal Medicine Rheumatology
DX: M06.4 Inflammatory polyarthropathy (principal); Z79.899 Other long term (current) drug therapy; M15.9 Polyosteoarthritis, unspecified
CPT/HCPCS: 36415; 80053; 85025

== ENCOUNTER → 2025-08-07 | Outpatient (CLI) | payer MEDICARE, BC, SELFPAY | END | disposition home or self-care (01) | LOC: LAB 14:31 | PROVIDERS: PCP Pediatrics; Referring Provider Internal Medicine Cardiovascular Disease; Visit Provider Internal Medicine Cardiovascular Disease | DX: I48.91 Unspecified atrial fibrillation (principal) | CPT/HCPCS: 36415; 84443 ==

== ENCOUNTER → 2025-09-03 | Outpatient (CLI) | payer MEDICARE, BC, SELFPAY ==
--- NOTE | 2025-09-03 12:56 | ECHOD_ITS ---
Reason For Study Reason For Study: AFIB Procedure This was a 2D Doppler, Color Flow transthoracic echocardiogram. Exam performed in department. Left Ventricle Normal LV size. The left ventricular ejection fraction is 55 %. No regional wall motion abnormalities noted. Right Ventricle Normal RV size. Normal systolic function. Atria Normal left atrium. Normal right atrium. Mitral Valve Normal mitral valve. Tricuspid Valve Normal tricuspid valve. Mild (1+) tricuspid valve insufficiency. Pulmonary artery systolic pressure is 35 mmHg. Aortic Valve Trisinus/trileaflet aortic valve. Mild focal aortic valve calcification. Pulmonic Valve Normal pulmonic valve. Great Vessels Normal aortic root. The pulmonary artery is normal size. Inferior vena cava collapse with respiration. Pericardium/Pleural No pericardial effusion. MMode/2D Measurements & Calculations LVIDd: 4.7 cm IVSd: 0.98 cm Ao root diam: 3.5 cm LVIDs: 2.9 cm LVPWd: 0.94 cm RVDd: 3.4 cm FS: 37.4 % LAV(MOD-bp): 50.2 ml LVAd ap4: 17.0 cm2 SV(MOD-sp4): 17.0 ml LAV(MOD-bp) Indexed: 28.6 ml/m2 LVLd ap4: 6.6 cm SI(MOD-sp4): 9.7 ml/m2 LAV(MOD-sp2): 48.2 ml EDV(MOD-sp4): 34.5 ml LAV(MOD-sp4): 44.2 ml EDV(sp4-el): 37.0 ml LVAs ap4: 11.3 cm2 LVLs ap4: 6.1 cm ESV(MOD-sp4): 17.5 ml ESV(sp4-el): 17.7 ml EF(MOD-sp4): 49.4 % EF(sp4-el): 52.1 % SV(sp4-el): 19.3 ml LA A4 area: 18.7 cm2 LA dimension(2D): 3.6 cm RA A4 area: 10.1 cm2 Doppler Measurements & Calculations MV E max apollo: 94.7 cm/sec Ao V2 max: 102.4 cm/sec LV V1 max: 87.8 cm/sec Ao max P.2 mmHg LV V1 max P.1 mmHg Ao V2 mean: 74.8 cm/sec LV V1 mean P.6 mmHg Ao mean P.5 mmHg LV V1 mean: 57.8 cm/sec Ao V2 VTI: 20.4 cm LV V1 VTI: 18.3 cm AV (velocity ratio): 0.89 PA V2 max: 72.0 cm/sec TR max apollo: 283.5 cm/sec PA V2 mean: 51.0 cm/sec TR max P.1 mmHg ECHO/Echo Complete Interpretation Summary The left ventricular ejection fraction is 55 %. Normal LV size. Pulmonary artery systolic pressure is 35 mmHg. Mild focal aortic valve calcification. Ordering Physician: Stephen Forrester Referring Physician: Stephen Forrester Performed By: Domenica Rodriguez RCS
== END | disposition home or self-care (01) ==
LOC: CVS 12:52
PROVIDERS: PCP Pediatrics; Referring Provider Internal Medicine Cardiovascular Disease; Visit Provider Internal Medicine Cardiovascular Disease
DX: I10 Essential (primary) hypertension (principal); I25.10 Atherosclerotic heart disease of native coronary artery without angina pectoris
CPT/HCPCS: 93306